=== PATIENT | female | born 1940 | race Caucasian/White ===

== ENCOUNTER 2018-12-31 11:28 | Emergency (ER) | payer MEDICARE, BC ==
[2018-12-31 11:47] VITALS: RESP 18
[2018-12-31] MEDS ORDERED: SODIUM CHLORIDE 0.9% 1,000 ML IV STA ×2 (12:15)
[2018-12-31] MEDS ORDERED: PANTOPRAZOLE 40 MG/10 ML VIAL IVP STA (12:15)
[2018-12-31] MEDS ORDERED: ONDANSETRON 4 MG/2 ML VIAL IVP STA (12:17)
[2018-12-31] MEDS ORDERED: SODIUM CHLORIDE 0.9% 1,000 ML IV SCH (12:30)
--- NOTE | 2018-12-31 13:08 | ED ---
Abdominal Pain HPI - General Chief Complaint: Abdominal Pain Stated Complaint: nausea, cramps, diarrhea Time Seen by Provider: 12/31/18 11:48 Source: patient, RN notes reviewed, old records reviewed Mode of arrival: ambulatory Limitations: no limitations - History of Present Illness Initial Comments: 70-year-old male presents emergency department today for evaluation today with complaints of diarrhea for the past 3 days. She states she's had a poor a ppetite. She has some left lower quadrant minimal discomfort. Patient states she's had some dark stools yesterday and today was concern for this. Patient states that she has been feeling just generally tired and fatigued. She denies any other complaints. - Related Data Home Medications Medication Instructions Recorded Confirmed Bimatoprost [Lumigan .01% Ophth 1 drop RIGHT EYE HS 03/01/16 12/31/18 Soln] Lisinopril [Zestril] 20 mg PO BID 03/01/16 12/31/18 Denosumab [Prolia] 60 mg SQ Q180D 12/31/18 12/31/18 Omeprazole [PriLOSEC] 20 mg PO DAILY 12/31/18 12/31/18 Propafenone [Rythmol] 150 mg PO Q8H 12/31/18 12/31/18 Rivaroxaban [Xarelto] 20 mg PO DAILY 12/31/18 12/31/18 Previous Rx's Medication Instructions Recorded Loperamide [Imodium] 2 mg PO TID #10 cap 12/31/18 Nitrofurantoin Monohyd/M-Cryst 100 mg PO Q12HR #14 cap 12/31/18 [Macrobid] Ondansetron Odt [Zofran Odt] 4 mg PO Q8HR PRN #14 tab 12/31/18 Allergies Allergy/AdvReac Type Severity Reaction Status Date / Time etodolac [From [facility]] Allergy Rash/Hives Verified 12/31/18 12:26 Review of Systems ROS Statement: Those systems with pertinent positive or pertinent negative responses have been documented in the HPI. ROS Other: All systems not noted in ROS Statement are negative. Past Medical History Past Medical History: Atrial Fibrillation, GERD/Reflux, Hypertension, Rheumatoid Arthritis (RA) Additional Past Medical History / Comment(s): AT [facility] ON 01/18/16 History of Any Multi-Drug Resistant Organisms: None Reported Past Surgical History: Cholecystectomy Past Anesthesia/Blood Transfusion Reactions: No Reported Reaction Past Psychological History: No Psychological Hx Reported Smoking Status: Never smoker Past Alcohol Use History: Occasional Past Drug Use History: None Reported - Past Family History Mother Additional Family Medical History / Comment(s): BLOOD CLOT IN THE BRAIN, AT AGE 61. General Exam - General Exam Comments Initial Comments: This is a 78-year-old female. Alert and oriented. No distress. Limitations: no limitations General appearance: alert, in no apparent distress Head exam: Present: atraumatic, normocephalic, normal inspection Eye exam: Present: normal appearance, PERRL, EOMI. Absent: scleral icterus, conjunctival injection, periorbital swelling ENT exam: Present: normal exam, mucous membranes moist Neck exam: Present: normal inspection. Absent: tenderness, meningismus, lymphadenopathy Respiratory exam: Present: normal lung sounds bilaterally. Absent: respiratory distress, wheezes, rales, rhonchi, stridor Cardiovascular Exam: Present: regular rate, normal rhythm, normal heart sounds. Absent: systolic murmur, diastolic murmur, rubs, gallop, clicks GI/Abdominal exam: Present: soft, normal bowel sounds. Absent: distended, tenderness, guarding, rebound, rigid Extremities exam: Present: normal inspection, full ROM, normal capillary refill. Absent: tenderness, pedal edema, joint swelling, calf tenderness Neurological exam: Present: alert, oriented X3, CN II-XII intact Psychiatric exam: Present: normal affect, normal mood Skin exam: Present: warm, dry, intact, normal color. Absent: rash Course Vital Signs 12/31/18 12/31/18 11:44 14:27 Temperature 97.2 F L Pulse Rate 102 H 118 H Respiratory 18 18 Rate Blood Pressure 122/78 132/78 O2 Sat by Pulse 96 95 Oximetry Medical Decision Making - Medical Decision Making Patient is a 70-year-old female presents with nausea vomiting, episodes of diarrhea for the past 3 days. She states she's been started some dark stools yesterday. She has minimal left-sided belly pain with cramping associated with this. She has no tenderness on exam. Patient's occult was negative. Motor was reviewed and unremarkable. Hemoglobin is stable 14. Patient's urinalysis does show infection. Urine culture be completed. Discusses likely from frequent bouts of diarrhea. Patient will have stool culture studies completed out patiently. Discussed appropriate follow-up with her PCP. After receiving IV fluids is feeling much better. Wants to be discharged home. - Lab Data Result diagrams: 12/31/18 12:49 12/31/18 12:49 Lab Results 12/31/18 12/31/18 12/31/18 Range/Units 12:49 12:49 12:49 WBC (3.8-10.6) k/uL RBC (3.80-5.40) m/uL Hgb (11.4-16.0) gm/dL Hct (34.0-46.0) % MCV (80.0-100.0) fL MCH (25.0-35.0) pg MCHC (31.0-37.0) g/dL RDW (11.5-15.5) % Plt Count (150-450) k/uL Neutrophils % % Lymphocytes % % Monocytes % % Eosinophils % % Basophils % % Neutrophils # (1.3-7.7) k/uL Lymphocytes # (1.0-4.8) k/uL Monocytes # (0-1.0) k/uL Eosinophils # (0-0.7) k/uL Basophils # (0-0.2) k/uL PT 11.3 (9.0-12.0) sec INR 1.1 (<1.2) APTT 18.3 L (22.0-30.0) sec Sodium (137-145) mmol/L Potassium (3.5-5.1) mmol/L Chloride (98-107) mmol/L Carbon Dioxide (22-30) mmol/L Anion Gap mmol/L BUN (7-17) mg/dL Creatinine (0.52-1.04) mg/dL Est GFR (CKD-EPI)AfAm (>60 ml/min/1.73 sqM) Est GFR (CKD-EPI)NonAf (>60 ml/min/1.73 sqM) Glucose (74-99) mg/dL Calcium (8.4-10.2) mg/dL Total Bilirubin (0.2-1.3) mg/dL AST (14-36) U/L ALT (9-52) U/L Alkaline Phosphatase (38-126) U/L Troponin I <0.012 (0.000-0.034) ng/mL Total Protein (6.3-8.2) g/dL Albumin (3.5-5.0) g/dL Amylase 52 (30-110) U/L Lipase 101 (23-300) U/L Urine Color Urine Appearance (Clear) Urine pH (5.0-8.0) Ur Specific [place] (1.001-1.035) Urine Protein (Negative) Urine Glucose (UA) (Negative) Urine Ketones (Negative) Urine Blood (Negative) Urine Nitrite (Negative) Urine Bilirubin (Negative) Urine Urobilinogen (<2.0) mg/dL Ur Leukocyte Esterase (Negative) Urine WBC (0-5) /hpf Ur Squamous Epith Cells (0-4) /hpf Amorphous Sediment (None) /hpf Urine Bacteria (None) /hpf Hyaline Casts (0-2) /lpf Urine Mucus (None) /hpf Stool Occult Blood (Negative) Blood Type Blood Type Recheck Antibody Screen Spec Expiration Date 12/31/18 12/31/18 12/31/18 Range/Units 12:49 12:49 12:49 WBC 4.8 (3.8-10.6) k/uL RBC 4.61 (3.80-5.40) m/uL Hgb 14.3 (11.4-16.0) gm/dL Hct 42.2 (34.0-46.0) % MCV 91.6 (80.0-100.0) fL MCH 31.0 (25.0-35.0) pg MCHC 33.9 (31.0-37.0) g/dL RDW 14.8 (11.5-15.5) % Plt Count 115 L (150-450) k/uL Neutrophils % 57 % Lymphocytes % 30 % Monocytes % 9 % Eosinophils % 1 % Basophils % 0 % Neutrophils # 2.7 (1.3-7.7) k/uL Lymphocytes # 1.4 (1.0-4.8) k/uL Monocytes # 0.4 (0-1.0) k/uL Eosinophils # 0.1 (0-0.7) k/uL Basophils # 0.0 (0-0.2) k/uL PT (9.0-12.0) sec INR (<1.2) APTT (22.0-30.0) sec Sodium (137-145) mmol/L Potassium (3.5-5.1) mmol/L Chloride (98-107) mmol/L Carbon Dioxide (22-30) mmol/L Anion Gap mmol/L BUN (7-17) mg/dL Creatinine (0.52-1.04) mg/dL Est GFR (CKD-EPI)AfAm (>60 ml/min/1.73 sqM) Est GFR (CKD-EPI)NonAf (>60 ml/min/1.73 sqM) Glucose (74-99) mg/dL Calcium (8.4-10.2) mg/dL Total Bilirubin (0.2-1.3) mg/dL AST (14-36) U/L ALT (9-52) U/L Alkaline Phosphatase (38-126) U/L Troponin I (0.000-0.034) ng/mL Total Protein (6.3-8.2) g/dL Albumin (3.5-5.0) g/dL Amylase (30-110) U/L Lipase (23-300) U/L Urine Color Yellow Urine Appearance Cloudy H (Clear) Urine pH 6.0 (5.0-8.0) Ur Specific [place] 1.014 (1.001-1.035) Urine Protein 1+ H (Negative) Urine Glucose (UA) Negative (Negative) Urine Ketones Negative (Negative) Urine Blood Negative (Negative) Urine Nitrite Negative (Negative) Urine Bilirubin Negative (Negative) Urine Urobilinogen <2.0 (<2.0) mg/dL Ur Leukocyte Esterase Large H (Negative) Urine WBC 30 H (0-5) /hpf Ur Squamous Epith Cells 5 H (0-4) /hpf Amorphous Sediment Rare H (None) /hpf Urine Bacteria Rare H (None) /hpf Hyaline Casts 6 H (0-2) /lpf Urine Mucus Occasional H (None) /hpf Stool Occult Blood (Negative) Blood Type O Positive Blood Type Recheck CABO Indicated Antibody Screen NEGATIVE Spec Expiration Date 01/03/2019 - 234812/31/18 12/31/18 Range/Units 12:49 13:00 WBC (3.8-10.6) k/uL RBC (3.80-5.40) m/uL Hgb (11.4-16.0) gm/dL Hct (34.0-46.0) % MCV (80.0-100.0) fL MCH (25.0-35.0) pg MCHC (31.0-37.0) g/dL RDW (11.5-15.5) % Plt Count (150-450) k/uL Neutrophils % % Lymphocytes % % Monocytes % % Eosinophils % % Basophils % % Neutrophils # (1.3-7.7) k/uL Lymphocytes # (1.0-4.8) k/uL Monocytes # (0-1.0) k/uL Eosinophils # (0-0.7) k/uL Basophils # (0-0.2) k/uL PT (9.0-12.0) sec INR (<1.2) APTT (22.0-30.0) sec Sodium 133 L (137-145) mmol/L Potassium 3.6 (3.5-5.1) mmol/L Chloride 101 (98-107) mmol/L Carbon Dioxide 18 L (22-30) mmol/L Anion Gap 14 mmol/L BUN 12 (7-17) mg/dL Creatinine 0.62 (0.52-1.04) mg/dL Est GFR (CKD-EPI)AfAm >90 (>60 ml/min/1.73 sqM) Est GFR (CKD-EPI)NonAf 87 (>60 ml/min/1.73 sqM) Glucose 114 H (74-99) mg/dL Calcium 8.9 (8.4-10.2) mg/dL Total Bilirubin 0.5 (0.2-1.3) mg/dL AST 32 (14-36) U/L ALT 21 (9-52) U/L Alkaline Phosphatase 52 (38-126) U/L Troponin I (0.000-0.034) ng/mL Total Protein 7.1 (6.3-8.2) g/dL Albumin 4.4 (3.5-5.0) g/dL Amylase (30-110) U/L Lipase (23-300) U/L Urine Color Urine Appearance (Clear) Urine pH (5.0-8.0) Ur Specific [place] (1.001-1.035) Urine Protein (Negative) Urine Glucose (UA) (Negative) Urine Ketones (Negative) Urine Blood (Negative) Urine Nitrite (Negative) Urine Bilirubin (Negative) Urine Urobilinogen (<2.0) mg/dL Ur Leukocyte Esterase (Negative) Urine WBC (0-5) /hpf Ur Squamous Epith Cells (0-4) /hpf Amorphous Sediment (None) /hpf Urine Bacteria (None) /hpf Hyaline Casts (0-2) /lpf Urine Mucus (None) /hpf Stool Occult Blood Negative (Negative) Blood Type Blood Type Recheck Antibody Screen Spec Expiration Date Disposition Clinical Impression: Diarrhea, UTI (urinary tract infection) Disposition: HOME SELF-CARE Condition: Good Instructions (If sedation given, give patient instructions): Gastroenteritis (ED), Urinary Tract Infection in Women (ED) Additional Instructions: Patient advised to return stool sample for checking for further source of infection. Take antibiotic. Patient recommended follow-up with primary care doctor. Rest, remain hydrated. Return to emergency department if any alarming signs or symptoms occur. Prescriptions: Loperamide [Imodium] 2 mg PO TID #10 cap Nitrofurantoin Monohyd/M-Cryst [Macrobid] 100 mg PO Q12HR #14 cap Ondansetron Odt [Zofran Odt] 4 mg PO Q8HR PRN #14 tab PRN Reason: Nausea Is patient prescribed a controlled substance at d/c from ED?: No Referrals: Prince Miles MD [Primary Care Provider] - 1-2 days Time of Disposition: 14:36
[2018-12-31 13:21] LABS: Amorphous Sediment,Urine Rare /hpf; Appearance,Urine Cloudy (Clear); Bacteria,Urine Rare /hpf; Bilirubin,Urine Negative (Negative); Blood,Urine Negative (Negative); Color,Urine Yellow; Glucose,Urine (UA) Negative (Negative); Hyaline Casts,Urine 6 /lpf (0-2); Ketones,Urine Negative (Negative); Leukocyte Esterase,Urine Large (Negative); Mucus,Urine Occasional /hpf; Nitrite,Urine Negative (Negative); Protein,Urine 1+ (Negative); Specific Gravity,Urine 1.014 (1.001-1.035); Squamous Epithelial Cell,Urine 5 /hpf (0-4); Urobilinogen,Urine <2.0 mg/dL (<2.0); WBC,Urine 30 /hpf (0-5)
[2018-12-31 13:25] LABS: Amylase 52 U/L (30-110); Lipase 101 U/L (23-300)
[2018-12-31 13:31] LABS: INR 1.1 (<1.2); Prothrombin Time 11.3 sec (9.0-12.0)
[2018-12-31 13:35] LABS: Partial Thromboplastin Time 18.3 sec (22.0-30.0)
[2018-12-31 13:42] LABS: Basophils % (A) 0 %; Eosinophils # (A) 0.1 k/uL (0-0.7); Eosinophils % (A) 1 %; HCT 42.2 % (34.0-46.0); HGB 14.3 gm/dL (11.4-16.0); Lymphocytes # (A) 1.4 k/uL (1.0-4.8); Lymphocytes % (A) 30 %; MCHC 33.9 g/dL (31.0-37.0); MCV 91.6 fL (80.0-100.0); Mean Platelet Volume 7.3; Monocytes # (A) 0.4 k/uL (0-1.0); Monocytes % (A) 9 %; Neutrophils # (A) 2.7 k/uL (1.3-7.7); Neutrophils % (A) 57 %; Platelet Count 115 k/uL (150-450); RBC 4.61 m/uL (3.80-5.40); RDW 14.8 % (11.5-15.5); WBC 4.8 k/uL (3.8-10.6)
[2018-12-31 13:51] LABS: ALT 21 U/L (9-52); AST 32 U/L (14-36); African American GFR (CKD) >90 (>60 ml/min/1.73 sqM); Albumin 4.4 g/dL (3.5-5.0); Alkaline Phosphatase 52 U/L (38-126); Anion Gap 14 mmol/L; Blood Urea Nitrogen 12 mg/dL (7-17); Calcium 8.9 mg/dL (8.4-10.2); Carbon Dioxide 18 mmol/L (22-30); Chloride 101 mmol/L (98-107); Glucose 114 mg/dL (74-99); Potassium 3.6 mmol/L (3.5-5.1); Sodium 133 mmol/L (137-145); Total Bilirubin 0.5 mg/dL (0.2-1.3); Total Protein 7.1 g/dL (6.3-8.2)
[2018-12-31 15:51] VITALS: BP 126/71; PULSE 94; TEMP 98.1
== END 2018-12-31 15:50 | disposition home or self-care (01) ==
LOC: EC 11:28
DX: R19.7 Diarrhea, unspecified (principal); N39.0 Urinary tract infection, site not specified; R11.2 Nausea with vomiting, unspecified; I48.91 Unspecified atrial fibrillation; K21.9 Gastro-esophageal reflux disease without esophagitis; I10 Essential (primary) hypertension; Z90.49 Acquired absence of other specified parts of digestive tract; Z79.01 Long term (current) use of anticoagulants; Z79.899 Other long term (current) drug therapy; Z88.6 Allergy status to analgesic agent; Z53.8 Procedure and treatment not carried out for other reasons
CPT/HCPCS: 36415; 86900; 86901; 80053; 82150; 83690; 84484; 85025; 85610; 85730; 86850; 82272; 81001; 87040; 99284; 96374; 96375; 96361 ×3; J2405; C9113

== ENCOUNTER → 2019-01-06 | Outpatient (CLI) | payer MEDICARE, BC ==
[~2019-01-06] MED LIST: DENOSUMAB 60 MG/ML 1 ML SYRINGE SQ NR
[2019-01-06 14:30] VITALS: BP 138/84; PULSE 94; RESP 16; TEMP 97.9
== END | disposition home or self-care (01) ==
LOC: PROCWHC3 14:15
PROVIDERS: ATTEND Family Medicine
DX: M81.0 Age-related osteoporosis without current pathological fracture (principal)
CPT/HCPCS: 96372; J0897

== ENCOUNTER → 2019-02-20 | Outpatient (CLI) | payer MEDICARE, BC ==
[2019-02-20 10:07] LABS: HCT 43.3 % (34.0-46.0); HGB 13.6 gm/dL (11.4-16.0); MCH 29.6 pg (25.0-35.0); MCHC 31.4 g/dL (31.0-37.0); MCV 94.3 fL (80.0-100.0); Mean Platelet Volume 7.2; Platelet Count 214 k/uL (150-450); RBC 4.59 m/uL (3.80-5.40); RDW 13.2 % (11.5-15.5); WBC 7.1 k/uL (3.8-10.6)
[2019-02-20 10:25] LABS: African American GFR (CKD) >90 (>60 ml/min/1.73 sqM); Blood Urea Nitrogen 12 mg/dL (7-17); Glucose 105 mg/dL (74-99); Potassium 4.7 mmol/L (3.5-5.1)
== END | disposition home or self-care (01) ==
LOC: LABPAT 09:41
PROVIDERS: ATTEND Internal Medicine Clinical Cardiac Electrophysiology
DX: Z01.812 Encounter for preprocedural laboratory examination (principal); I48.1 Persistent atrial fibrillation; R07.9 Chest pain, unspecified
CPT/HCPCS: 82565; 82947; 84132; 84520; 85027

== ENCOUNTER 2019-03-03 10:00 | Day surgery (SDC) | payer MEDICARE, BC ==
[~2019-03-03 10:00] MED LIST changes: -DENOSUMAB 60 MG/ML 1 ML SYRINGE SQ NR; +HYDROmorphone 0.5 MG/0.5 ML SYRINGE IVP PRN; +MIDAZOLAM 2 MG/2 ML VIAL IV PRN; +ONDANSETRON 4 MG/2 ML VIAL IVP ONE
[2019-03-03] MEDS ORDERED: SODIUM CHLORIDE 0.9% 1,000 ML IV ONE (11:42)
[2019-03-03] MEDS ORDERED: HEPARIN SODIUM,PORCINE 5,000 UNIT/ML 1 ML VIAL ONE (14:52)
[2019-03-03] MEDS ORDERED: PHENYLEPHRINE-0.9% NACL SYG 1 MG/10 ML SYRINGE ONE (14:52)
[2019-03-03] MEDS ORDERED: PROTAMINE SULFATE 10 MG/ML 5 ML VIAL IV ONE ×2 (14:52→18:07)
[2019-03-03] MEDS ORDERED: MIDAZOLAM 2 MG/2 ML VIAL ONE (14:52)
[2019-03-03] MEDS ORDERED: PROPOFOL 10 MG/ML 20 ML VIAL IV ONE (14:52)
[2019-03-03] MEDS ORDERED: fentaNYL (PF) 50 MCG/ML 2 ML AMP ONE (14:52)
[2019-03-03] MEDS ORDERED: HEPARIN SODIUM,PORCINE 10,000 UNIT/ML 1 ML VIAL ONE (14:52)
[2019-03-03] MEDS ORDERED: ONDANSETRON 4 MG/2 ML VIAL ONE (14:52)
[2019-03-03] MEDS ORDERED: SUCCINYLCHOLINE CHLORIDE 100 MG/5 ML SYR IV ONE (14:52)
[2019-03-03] MEDS ORDERED: IOPAMIDOL-250 50ML BTL IV ONE ×2 (15:09→18:09)
--- NOTE | 2019-03-03 15:12 | P.HPCAR ---
History of Present Illness This is Loren Maldonado PA-C dictating a H&P on this patient The patient was interviewed and examined by me as well as by Dr. Cordon Case discussed with Dr. 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 She has had symptomatic persistent atrial fibrillation that has been refractory to rhythm control with flecainide, Rythmol, and amiodarone. She has had symptoms of fatigue and shortness of breath despite rate control. Patient seen and examined resting comfortably in bed. Today she feels well. Denies chest pain, shortness of breath, orthopnea, PND, lower extremity edema, fevers chills, cough, recent infections. ROS: No fevers, chills or rigors, no cough, phlegm or expectoration, no nausea, vomiting or diarrhea, no hematuria, dysuria, no musculoskeletal complaints, no strokes or seizures, no skin lesions. EXAMINATION: Temperature 98.2F, pulse 78, respirations 16, blood pressure 167/99, oxygen saturation 95% on room air Patient is seen and examined resting comfortably in bed, in no acute distress Lungs clear to auscultation bilaterally, no wheezing, rhonchi or crackles a ppreciated Heart is irregularly irregular, no murmurs appreciated No elevated JVD No lower extremity edema REVIEW OF LABS, ECG & MEDICAL DATA Most recent labs reviewed, WBC 7.1, hemoglobin 13.6, platelets 214, potassium 4.7, BUN 12, creatinine 0.62, Physical Exam Vitals: Vital Signs Temp Pulse Resp BP Pulse Ox 03/03/19 11:42 98.2 F 78 16 167/99 95 Intake and Output 03/03/19 03/03/19 03/03/19 06:59 14:59 22:59 Intake Total 50 Balance 50 Intake: IV 50 Past Medical History Past Medical History: Atrial Fibrillation, Cancer, GERD/Reflux, Hypertension, Rheumatoid Arthritis (RA) Additional Past Medical History / Comment(s): back pain - hx of broken & fx vertebrae, Osteoporosis., Hx of skin cancer., [place] [employer] Pacemaker., See Cardiology H & P. History of Any Multi-Drug Resistant Organisms: None Reported Past Surgical History: Back Surgery, Cholecystectomy, Pacemaker Additional Past Surgical History / Comment(s): [employer]ER, KYPHOPLASTY. Past Anesthesia/Blood Transfusion Reactions: No Reported Reaction Type of Cardiac Device: Permanent Pacemaker Device Placement Date:: 02/2016 Past Psychological History: No Psychological Hx Reported Smoking Status: Never smoker Past Alcohol Use History: Occasional Past Drug Use History: None Reported - Past Family History Mother Additional Family Medical History / Comment(s): BLOOD CLOT IN THE BRAIN, AT AGE 61. Daughter(s) Family Medical History: Cancer Additional Family Medical History / Comment(s): MELANOMA & SQUAMOUS CELL CANCER Physical Examination Vital Signs Temp Pulse Resp BP Pulse Ox 03/03/19 11:42 98.2 F 78 16 167/99 95 Intake and Output 03/03/19 03/03/19 03/03/19 06:59 14:59 22:59 Intake Total 50 Balance 50 Intake: IV 50 Results Current Medications Generic Name Dose Route Start Last Admin Trade Name Freq PRN Reason Stop Dose Admin Hydromorphone HCl 0.5 mg 03/03/19 06:36 Dilaudid IVP 03/04/19 06:37 Q5M PRN Pain Control Sodium Chloride 1,000 mls @ 20 mls/hr 03/03/19 06:36 Saline 0.9% IV .Q24H ALEX Lactated Ringer's 1,000 mls @ 20 mls/hr 03/03/19 06:36 Lactated Ringers IV .Q24H ALEX Midazolam HCl 2 mg 03/03/19 06:36 Versed IV 03/04/19 06:37 ONCE PRN Anxiety Intake and Output 03/03/19 03/03/19 03/03/19 06:59 14:59 22:59 Intake Total 50 Balance 50 Intake: IV 50
--- NOTE | 2019-03-03 15:18 | P.PCN ---
Preoperative Diagnosis: Preoperative diagnosis: Tachybradycardia syndrome status post permanent pacemaker placement, persistent atrial fibrillation, possible upgrade to biventricular system in the future 15 mL of IV contrast dye was injected in the left upper extremity vein, cine fluoroscopy was performed, revealed patent axillary, subclavian and innominate veins and 2 pacing lead noted
[2019-03-03] MEDS ORDERED: LIDOCAINE 1% INJ 10MG/ML (20 ML MDV) SQ ONE (15:47)
[2019-03-03] MEDS ORDERED: ACETAMINOPHEN IV (For NPO) 1,000 MG in EMPTY BAG 1 BAG IVPB ONE (17:51)
[2019-03-03] MEDS ORDERED: HYDROcodone/APAP 5-325MG 1 EACH TAB PO PRN (17:51)
[2019-03-03] MEDS ORDERED: HEPARIN SOD,PORK IN 0.45% NACL 25,000 UNIT in 0.45% NACL 1 250ML.BAG IV ONE (18:06)
[2019-03-03] MEDS: LACTATED RINGERS 1,000 ML IV SCH (18:09)
[2019-03-03] MEDS: SODIUM CHLORIDE 0.9% 1,000 ML IV SCH (18:09)
--- NOTE | 2019-03-03 18:13 | P.PCN ---
Preoperative Diagnosis: Diagnosis Atrial fibrillation, symptomatic, refractory to therapy, persistent failed class I as well as class III antiarrhythmic drug therapy, symptomatic Result Successful pulmonary vein isolation of all veins using cryo-ablation Complete entrance block in all 4 veins confirmed No evidence for phrenic nerve injury Esophageal deflection YES Electrical cardioversion with a synchronized shock across the chest YES Procedure details Patient was brought to the EP lab in a fasting state. Written informed consent was obtained prior to the procedure. Procedure performed under general anesthesia After initial muscle relaxant use, muscle relaxants were not given thereafter in order to assess phrenic nerve during procedure. Patient prepped and draped as per protocol Full cryo-set up with standard preparation of the cryoablation tools done. Femoral Venous access obtained on the right and left groins Venous and arterial Sheaths placed. Diagnostic catheters for the high right atrium, phrenic nerve stimulation and pacing, His bundle, RV and coronary sinus placed Intracardiac echo catheter placed. Long sheath placed in the right atrium Left and right transseptal catheterization performed under intracardiac echo guidance. Intravenous heparin with aCT above 300 Later, catheter positioning and balloon positioning in the left atrium, under intracardiac echo guidance Diagnostic EP study with Coronary sinus pacing and recording Baseline measurements Sinus cycle length 724 ms, OK interval 135 ms, QRS 112 ms, QT 373 ms AH interval 100 ms, HV interval 52 ms Atrial pacing performed from the high right atrium and the coronary sinus RV pacing Transseptal catheterization performed RA pressure 12/4/8 LA pressure 24/3/13 Transseptal catheterization performed with standard sheath. The cryoablation sheath was then placed with an over the wire exchange without any acute complications. All 4 pulmonary veins were isolated in the following sequence: Left superior followed by left inferior followed by right superior followed by right inferior The cryo-ablation balloon was placed at the os of each vein 1.5 mL of IV dye was injected to confirm an occluded vein Goal during cryoablation was to achieve complete occlusion of the pulmonary vein, achieve -30 degrees C at 30 seconds and achieve -40 degrees C at 60 secon ds and a time to effect of less than 60-90 seconds, . If not the balloon was repositioned to obtain this result After completion of Cryoblation with durations from 180-240 seconds, entrance block was confirmed with the Attain circular catheter in a roving fashion around the antrum of the pulmonary veins Phrenic nerve pacing was performed from the SVC, right innominate vein area and diaphragm voltage was monitored. Diaphragmatic contractions were also monitored manually for strength of contraction. Parameter goals for each cryo freeze Complete occlusion of the appropriate vein -30 degrees C by 30 seconds -40 degrees C by 60 seconds Minimum between minus 40-55 degrees C Thaw time greater than 10 seconds Balloon visualized by intracardiac echo The esophagus was intubated. Esophageal Temperature monitoring with a CIRCA catheter formed. Esophageal deflection for hypothermia of the esophagus below 30 degrees C Left superior pulmonary vein Complete isolation, entrance block, 8 minutes Left inferior pulmonary vein Complete isolation, entrance block Right superior pulmonary vein, during phrenic nerve pacing Complete isolation, entrance block Right inferior pulmonary vein, during phrenic nerve pacing Complete isolation, entrance block At the end of the procedure the Achieve catheter was once again used to check for entrance block Phrenic nerve stimulation was performed to confirm diaphragmatic stimulation the end of the procedure Cine fluoroscopy was performed at the very end of the procedure to confirm movement of both diaphragms with inspiration and expiration At the end of the procedure the patient was extubated Heparin was reversed Venous sheaths were removed and hemostasis assured Procedures performed (PVI - CRYO Ablation) Diagnostic EP study CS pacing and recording Left and right transseptal catheterization Catheter the mapping of the tachycardia (NOT 3D mapping) Intracardiac echocardiography Pulmonary vein isolation with transseptal and comprehensive EPS, 60316 Electrical cardioversion with a synchronized shock across the chest [id number]
--- NOTE | 2019-03-03 18:14 | P.PCN ---
Preoperative Diagnosis: [employer] dual-chamber pacemaker was interrogated and programmed to VVI 50 beats a minute prior to the procedure Following the procedure the pacemaker was programmed to DDDR mode 50 to 1:30 bpm Lead impedances interrogated and stable Cinefluoroscopy of the leads performed prior to the procedure and at the end of the procedure and leads remained in stable position
[2019-03-03] MEDS ORDERED: ONDANSETRON 4 MG/2 ML VIAL IVP ONE (18:56)
[2019-03-03 20:19] VITALS: BMI 32.3
[2019-03-03] MEDS: LOSARTAN 50 MG TAB PO SCH (20:49)
[2019-03-03] MEDS: FLECAINIDE 50 MG TAB PO SCH (20:49)
[2019-03-03] MEDS ORDERED: RIVAROXABAN 20 MG TAB PO SCH (21:00)
[2019-03-03] MEDS ORDERED: LATANOPROST 0.005% OPHTH DROPS 2.5 ML BTL RIGHT EYE SCH (21:00)
[2019-03-04] MEDS: ACETAMINOPHEN TAB 325 MG TAB PO PRN ×2 (00:05→11:15)
[2019-03-04] MEDS: LACTATED RINGERS 1,000 ML IV SCH (06:04)
[2019-03-04] MEDS: SODIUM CHLORIDE 0.9% 1,000 ML IV SCH (06:04)
[2019-03-04] MEDS ORDERED: PANTOPRAZOLE 40 MG TABLET PO SCH (07:30)
[2019-03-04] MEDS ORDERED: NADOLOL 20 MG TAB PO SCH (09:00)
[2019-03-04] MEDS: FLECAINIDE 50 MG TAB PO SCH (09:07)
[2019-03-04] MEDS: LOSARTAN 50 MG TAB PO SCH (09:08)
--- NOTE | 2019-03-04 10:03 | P.DS ---
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 Had symptomatic persistent atrial fibrillation refractory rhythm control medications and remains symptomatic with shortness of breath and fatigue despite rate contr ol if she was scheduled for an atrial fibrillation ablation. She is yesterday she underwent successful atrial fibrillation ablation and underwent external electrical cardioversion to normal sinus rhythm. Today she remains in sinus rhythm. Yesterday we decreased her Nadolol, stopped her propafenone, and started on flecainide 50 mg twice a day. Her blood pressure has been well controlled. Patient seen and examined resting comfortably in bed. No acute events overnight. She did have some oozing from the left groin when she stood up to use the bathroom overnight resolved with manual pressure. No Further bleeding. Denies any chest pain or shortness of breath. Pain has been well controlled. He has been able to get up and use the bathroom without any dizziness or lightheadedness. Her device interrogation revealed normal functioning pacemaker Her 12-lead EKG showed sinus mechanism with mildly prolonged PA Temperature 98.5F, pulse 69, respirations 16, blood pressure 121/73, oxygen saturation 93% on room air Patient seen and examined resting comfortably in bed Lungs clear to auscultation bilaterally Heart is regular, normal S1-S2, no murmurs appreciated Bilateral groins healing well, no hematoma is palpated No lower extremity edema No elevated JVD Impression Persistent symptomatic atrial fibrillation status post atrial fibrillation ablation, currently in sinus rhythm on flecainide 50 mg twice a day Tachycardia bradycardia syndrome status post dual pacemaker placement Plan Increase flecainide to 100 mg twice daily Continue with Nadolol 20 mg daily Follow-up with Dr. Kelly Mark within a week Outpatient Lexiscan stress test Continue all other cardiac medications including anticoagulation with Xarelto Patient is clear for discharge as longus she is stable and able to get up and walk around in her groins are healing well Plan - Discharge Summary Discharge Rx Participant: Yes New Discharge Prescriptions: New Nadolol [Corgard] 20 mg PO DAILY 3 Days #90 tablet Flecainide [Tambocor] 50 mg PO Q12HR #180 tablet Discontinued Propafenone [Rythmol] 150 mg PO Q8H Nadolol [Corgard] 20 mg PO BID No Action Bimatoprost [Lumigan .01% Ophth Soln] 1 drop RIGHT EYE HS Rivaroxaban [Xarelto] 20 mg PO HS Omeprazole [PriLOSEC] 20 mg PO DAILY Denosumab [Prolia] 1 dose SQ Q180D Losartan Potassium [Cozaar] 50 mg PO BID Calcium With Vitamin D 1 tab PO BID Discharge Medication List Bimatoprost [Lumigan .01% Ophth Soln] 1 drop RIGHT EYE HS 03/01/16 [History] Denosumab [Prolia] 1 dose SQ Q180D 12/31/18 [History] Omeprazole [PriLOSEC] 20 mg PO DAILY 12/31/18 [History] Rivaroxaban [Xarelto] 20 mg PO HS 12/31/18 [History] Calcium With Vitamin D 1 tab PO BID 02/27/19 [History] Losartan Potassium [Cozaar] 50 mg PO BID 02/27/19 [History] Flecainide [Tambocor] 50 mg PO Q12HR #180 tablet 03/03/19 [Rx] Nadolol [Corgard] 20 mg PO DAILY 3 Days #90 tablet 03/03/19 [Rx] Follow up Appointment(s)/Referral(s): Eulalio Cordon MD [STAFF PHYSICIAN] - 1 Week (follow up with Dr. Cordon/Jaswant Maldonado/Lachelle Julio in one week) Activity/Diet/Wound Care/Special Instructions: Post EP study - Ablation instructions 1. Keep access sites dry for 2 days. 2. No heavy lifting or straining for 2 days. 3. Avoid bending the hips repeatedly for 2 days. 4. You may go up and down stairs slowly Call if the following is noted 1. Bleeding, increasing swelling or pain at the access sites. 2. Increasing chest discomfort, especially upon taking a deep breath. 3. Increasing shortness of breath, at rest or with exertion. 4. Undue cough / phlegm 5. Difficulty or pain while swallowing. 6. Pain or change in color in the extremities. 7. Fever, chills, rigors. 8. Increasing headache or neurologic symptoms. 9. Dizziness, fainting, palpitations Decreased Nadolol 20 mg once daily, stop Rythmol and start flecainide 50 mg twice daily
[2019-03-04 16:30] VITALS: BP 108/60; PULSE 58; RESP 18; TEMP 98.1
== END 2019-03-04 17:23 | disposition home or self-care (01) ==
LOC: CATHEP 10:00 → 1SOBS 18:05 → CATHEP 03-04 17:23
PROVIDERS: ATTEND Internal Medicine Clinical Cardiac Electrophysiology
DX: I48.1 Persistent atrial fibrillation (principal); I10 Essential (primary) hypertension; K21.9 Gastro-esophageal reflux disease without esophagitis; M06.9 Rheumatoid arthritis, unspecified; M81.0 Age-related osteoporosis without current pathological fracture; Z85.828 Personal history of other malignant neoplasm of skin; Z95.0 Presence of cardiac pacemaker
CPT/HCPCS: 85347; 93662; 36005; 93609; 93656; C1769 ×4; C1894 ×2; C1730 ×2; C1759; C1893; C1733; C1766; J2250; J2720; J1644 ×3; J0690; J2405; J2001; J3010; J0131; J2370; J0330; J2704; Q9966

== ENCOUNTER → 2019-07-09 | Outpatient (CLI) | payer MEDICARE, BC ==
[~2019-07-09] MED LIST changes: +DENOSUMAB 60 MG/ML 1 ML SYRINGE SQ ONE; -HYDROmorphone 0.5 MG/0.5 ML SYRINGE IVP PRN; -MIDAZOLAM 2 MG/2 ML VIAL IV PRN; -ONDANSETRON 4 MG/2 ML VIAL IVP ONE
[2019-07-09 14:30] VITALS: BP 146/77; PULSE 63; RESP 18; TEMP 98
== END | disposition home or self-care (01) ==
LOC: PROCWHC3 14:16
PROVIDERS: ATTEND Family Medicine
DX: M81.0 Age-related osteoporosis without current pathological fracture (principal)
CPT/HCPCS: 96372; J0897

== ENCOUNTER 2020-01-29 10:51 | Emergency (ER) | payer BC, MEDICARE ==
--- NOTE | 2020-01-29 11:31 | ED ---
Female Urogenital HPI - General Chief complaint: Urogenital Stated complaint: UTI Time Seen by Provider: 01/29/20 10:56 Source: patient Mode of arrival: wheelchair Limitations: no limitations - History of Present Illness Initial comments: 79-year-old female presents complaining of dysuria 5 months--patient states that she has had burning with urination for 5 months. She states she has been on multiple antibiotics she states she is seen her primary care a total of 3 times for this complaint and an outpatient clinic she states she is currently on ciprofloxacin. Patient denies fevers, weakness general malaise she denies any back or flank pain. Patient denies abdominal pain. Patient has a nausea or vomiting. Patient denies additional complaints. Upon arrival patient appears nontoxic in no acute distress. - Related Data Home Medications Medication Instructions Recorded Confirmed Bimatoprost [Lumigan .01% Ophth 1 drop RIGHT EYE HS 03/01/16 07/09/19 Soln] Denosumab [Prolia] 1 dose SQ Q180D 12/31/18 07/09/19 Omeprazole [PriLOSEC] 20 mg PO DAILY 12/31/18 07/09/19 Rivaroxaban [Xarelto] 20 mg PO HS 12/31/18 07/09/19 Calcium With Vitamin D 1 tab PO BID 02/27/19 07/09/19 Losartan Potassium [Cozaar] 50 mg PO BID 02/27/19 07/09/19 Previous Rx's Medication Instructions Recorded Nadolol [Corgard] 20 mg PO DAILY 3 Days #90 tablet 03/03/19 Flecainide [Tambocor] 100 mg PO Q12HR #90 tablet 03/04/19 Cefpodoxime Proxetil [Vantin] 200 mg PO Q12HR 10 Days #20 tab 01/29/20 Allergies Allergy/AdvReac Type Severity Reaction Status Date / Time etodolac [From [facility]] Allergy Rash/Hives Verified 01/29/20 10:54 Review of Systems ROS Statement: Those systems with pertinent positive or pertinent negative responses have been documented in the HPI. ROS Other: All systems not noted in ROS Statement are negative. Past Medical History Past Medical History: Atrial Fibrillation, GERD/Reflux, Hypertension, Rheumatoid Arthritis (RA) Additional Past Medical History / Comment(s): AT [facility] ON 01/18/16 History of Any Multi-Drug Resistant Organisms: None Reported Past Surgical History: Cholecystectomy Additional Past Surgical History / Comment(s): [employer], KYPHOPLASTY. Past Anesthesia/Blood Transfusion Reactions: No Reported Reaction Type of Cardiac Device: Permanent Pacemaker Device Placement Date:: 02/2016 Past Psychological History: No Psychological Hx Reported Smoking Status: Never smoker Past Alcohol Use History: None Reported Past Drug Use History: None Reported - Past Family History Mother Additional Family Medical History / Comment(s): BLOOD CLOT IN THE BRAIN, AT AGE 61. Daughter(s) Family Medical History: Cancer Additional Family Medical History / Comment(s): MELANOMA & SQUAMOUS CELL CANCER General Exam - General Exam Comments Initial Comments: General: The patient is awake and alert, in no distress Eye: +3 mm pupils are equal, round and reactive to light, extra-ocular movements are intact. No nystagmus. There is normal conjunctiva bilaterally. No signs of icterus. Ears, nose, mouth and throat: There are moist mucous membranes and no oral lesions. Neck: The neck is supple, there is no tenderness or JVD. Cardiovascular: There is a regular rate and rhythm. No murmur, rub or gallop is appreciated. Respiratory: Lungs are clear to auscultation, respirations are non-labored, breath sounds are equal. No wheezes, stridor, rales, or rhonchi. Gastrointestinal: Soft, non-distended, non-tender abdomen without masses or organomegaly noted. There is no rebound or guarding present. Musculoskeletal: Normal ROM, no tenderness. Strength 5/5. Sensation intact. Radial pulses equal bilaterally 2+. Neurological: A&O x 3. CN II-XII intact grossly, There are no obvious motor or sensory deficits. Coordination appears grossly intact. Speech is normal. Skin: Skin is warm and dry and no rashes or lesions are noted. Psychiatric: Cooperative, appropriate mood & affect, normal judgment. Limitations: no limitations Course Vital Signs 01/29/20 01/29/20 10:52 13:17 Temperature 98.0 F 98.1 F Pulse Rate 62 65 Respiratory 18 14 Rate Blood Pressure 151/77 145/73 O2 Sat by Pulse 96 98 Oximetry Medical Decision Making - Medical Decision Making 79-year-old female presented for chief complaint of dysuria x 5 months. on multiple antibiotics. Patient states that she has been on keflex and ciprofloxacin. Patient denies constitutional symptoms of feet. On urinalysis there is findings consistent with possible infection. Patient will be treated with cefpodoxime for complicatedd female UTI. Patient urine culture pending. Patient sodium low. Givne IV hydration in ER. Patient asymptomatic. Patient case discussed with Dr. El who is agreeable to care plan of discharge with PCP f/u and repeat otupatient labs. patient prefers discharge, and was discharged appearing well. - Lab Data Result diagrams: 01/29/20 11:39 01/29/20 11:39 Lab Results 01/29/20 01/29/20 01/29/20 Range/Units 11:39 11:39 11:39 WBC 8.7 (3.8-10.6) k/uL RBC 3.84 (3.80-5.40) m/uL Hgb 11.3 L (11.4-16.0) gm/dL Hct 35.3 (34.0-46.0) % MCV 92.0 (80.0-100.0) fL MCH 29.5 (25.0-35.0) pg MCHC 32.1 (31.0-37.0) g/dL RDW 12.6 (11.5-15.5) % Plt Count 220 (150-450) k/uL Neutrophils % 72 % Lymphocytes % 11 % Monocytes % 10 % Eosinophils % 2 % Basophils % 0 % Neutrophils # 6.3 (1.3-7.7) k/uL Lymphocytes # 1.0 (1.0-4.8) k/uL Monocytes # 0.9 (0-1.0) k/uL Eosinophils # 0.2 (0-0.7) k/uL Basophils # 0.0 (0-0.2) k/uL Sodium 126 L (137-145) mmol/L Potassium 4.4 (3.5-5.1) mmol/L Chloride 92 L (98-107) mmol/L Carbon Dioxide 23 (22-30) mmol/L Anion Gap 11 mmol/L BUN 20 H (7-17) mg/dL Creatinine 0.62 (0.52-1.04) mg/dL Est GFR (CKD-EPI)AfAm >90 (>60 ml/min/1.73 sqM) Est GFR (CKD-EPI)NonAf 86 (>60 ml/min/1.73 sqM) Glucose 147 H (74-99) mg/dL Calcium 8.6 (8.4-10.2) mg/dL Total Bilirubin 0.9 (0.2-1.3) mg/dL AST 28 (14-36) U/L ALT 29 (4-34) U/L Alkaline Phosphatase 63 (38-126) U/L Total Protein 6.1 L (6.3-8.2) g/dL Albumin 3.5 (3.5-5.0) g/dL Urine Color Dark Yellow Urine Appearance Clear (Clear) Urine pH 6.0 (5.0-8.0) Ur Specific [place] 1.010 (1.001-1.035) Urine Protein Trace H (Negative) Urine Glucose (UA) Negative (Negative) Urine Ketones Negative (Negative) Urine Blood Negative (Negative) Urine Nitrite Negative (Negative) Urine Bilirubin Negative (Negative) Urine Urobilinogen 3.0 (<2.0) mg/dL Ur Leukocyte Esterase Moderate H (Negative) Urine RBC 2 (0-5) /hpf Urine WBC 12 H (0-5) /hpf Ur Squamous Epith Cells 2 (0-4) /hpf Urine Bacteria Rare H (None) /hpf Urine Mucus Rare H (None) /hpf Disposition Clinical Impression: UTI (urinary tract infection), Dysuria, Hyponatremia Disposition: HOME SELF-CARE Condition: Good Instructions (If sedation given, give patient instructions): Urinary Tract Infection in Women (ED) Additional Instructions: Please use medication as discussed. Please follow-up with family doctor in the next 2 days, repeat sodium levels-CMP recommended. Please return to emergency room if the symptoms increase or worsen or for any other concerns. Prescriptions: Cefpodoxime Proxetil [Vantin] 200 mg PO Q12HR 10 Days #20 tab Is patient prescribed a controlled substance at d/c from ED?: No Referrals: Prince Miles MD [Primary Care Provider] - 1-2 days Time of Disposition: 12:46
[2020-01-29] MEDS ORDERED: SODIUM CHLORIDE 0.9% 500 ML 500 ML IV ONE (11:34)
[2020-01-29 12:15] LABS: Basophils % (A) 0 %; Eosinophils # (A) 0.2 k/uL (0-0.7); Eosinophils % (A) 2 %; HCT 35.3 % (34.0-46.0); HGB 11.3 gm/dL (11.4-16.0); Lymphocytes % (A) 11 %; MCH 29.5 pg (25.0-35.0); MCHC 32.1 g/dL (31.0-37.0); Mean Platelet Volume 7.8; Monocytes # (A) 0.9 k/uL (0-1.0); Monocytes % (A) 10 %; Neutrophils # (A) 6.3 k/uL (1.3-7.7); Neutrophils % (A) 72 %; Platelet Count 220 k/uL (150-450); RBC 3.84 m/uL (3.80-5.40); RDW 12.6 % (11.5-15.5); WBC 8.7 k/uL (3.8-10.6)
[2020-01-29 12:27] LABS: ALT 29 U/L (4-34); AST 28 U/L (14-36); African American GFR (CKD) >90 (>60 ml/min/1.73 sqM); Albumin 3.5 g/dL (3.5-5.0); Alkaline Phosphatase 63 U/L (38-126); Anion Gap 11 mmol/L; Blood Urea Nitrogen 20 mg/dL (7-17); Calcium 8.6 mg/dL (8.4-10.2); Carbon Dioxide 23 mmol/L (22-30); Chloride 92 mmol/L (98-107); Glucose 147 mg/dL (74-99); Non-African American GFR(CKD) 86 (>60 ml/min/1.73 sqM); Potassium 4.4 mmol/L (3.5-5.1); Sodium 126 mmol/L (137-145); Total Bilirubin 0.9 mg/dL (0.2-1.3); Total Protein 6.1 g/dL (6.3-8.2)
[2020-01-29 12:33] LABS: Appearance,Urine Clear (Clear); Bacteria,Urine Rare /hpf; Bilirubin,Urine Negative (Negative); Blood,Urine Negative (Negative); Color,Urine Dark Yellow; Glucose,Urine (UA) Negative (Negative); Ketones,Urine Negative (Negative); Leukocyte Esterase,Urine Moderate (Negative); Mucus,Urine Rare /hpf; Nitrite,Urine Negative (Negative); Protein,Urine Trace (Negative); RBC,Urine 2 /hpf (0-5); Squamous Epithelial Cell,Urine 2 /hpf (0-4); WBC,Urine 12 /hpf (0-5)
[2020-01-29 13:18] VITALS: BP 145/73; PULSE 65; RESP 14; TEMP 98.1
== END 2020-01-29 13:19 | disposition home or self-care (01) ==
LOC: EC 10:51
DX: N39.0 Urinary tract infection, site not specified (principal); E87.1 Hypo-osmolality and hyponatremia; I10 Essential (primary) hypertension; K21.9 Gastro-esophageal reflux disease without esophagitis; I48.91 Unspecified atrial fibrillation; Z79.899 Other long term (current) drug therapy; Z79.01 Long term (current) use of anticoagulants; Z88.1 Allergy status to other antibiotic agents; Z88.6 Allergy status to analgesic agent; Z90.49 Acquired absence of other specified parts of digestive tract
CPT/HCPCS: 36415; 80053; 81001; 85025; 87086; 96360; 99283

== ENCOUNTER 2020-12-21 13:19 | Observation (INO) | payer MEDICARE ==
[2020-12-21] MEDS ORDERED: ASPIRIN 81 MG PO STA (14:44)
--- NOTE | 2020-12-21 14:51 | ED ---
General Adult HPI - General Chief complaint: Weakness Stated complaint: SOB/Weakness Time Seen by Provider: 12/21/20 14:20 Source: patient, family, RN notes reviewed Mode of arrival: wheelchair Limitations: no limitations - History of Present Illness Initial comments: Patient is a pleasant 80-year-old female presenting to the emergency department with complaints of fatigue and exertional dyspnea. Symptoms have been sleeping progressive over weeks, worse the last couple of days. Patient was very short of breath and sweaty and fatigued especially yesterday with ambulation. Patient did go to her her doctor's office today and was sent here secondary to abnormal EKG. Patient states no chest pain. No history of similar symptoms previously. Patient does have cardiac history and sees Dr. Falk with history of atrial fibrillation and pacemaker and previous ablation. - Related Data Home Medications Medication Instructions Recorded Confirmed Bimatoprost [Lumigan .01% Ophth 1 drop RIGHT EYE HS 03/01/16 07/09/19 Soln] Denosumab [Prolia] 1 dose SQ Q180D 12/31/18 07/09/19 Omeprazole [PriLOSEC] 20 mg PO DAILY 12/31/18 07/09/19 Rivaroxaban [Xarelto] 20 mg PO HS 12/31/18 07/09/19 Calcium With Vitamin D 1 tab PO BID 02/27/19 07/09/19 Losartan Potassium [Cozaar] 50 mg PO BID 02/27/19 07/09/19 Previous Rx's Medication Instructions Recorded nadoloL [Corgard] 20 mg PO DAILY 3 Days #90 tablet 03/03/19 Flecainide [Tambocor] 100 mg PO Q12HR #90 tablet 03/04/19 Cefpodoxime Proxetil [Vantin] 200 mg PO Q12HR 10 Days #20 tab 01/29/20 Allergies Allergy/AdvReac Type Severity Reaction Status Date / Time etodolac [From [facility]] Allergy Rash/Hives Verified 12/21/20 13:46 Review of Systems ROS Statement: Those systems with pertinent positive or pertinent negative responses have been documented in the HPI. ROS Other: All systems not noted in ROS Statement are negative. Constitutional: Denies: fever Eyes: Denies: eye pain ENT: Denies: ear pain Respiratory: Reports: dyspnea. Denies: cough Cardiovascular: Denies: chest pain Endocrine: Reports: fatigue Gastrointestinal: Denies: abdominal pain Genitourinary: Denies: dysuria Musculoskeletal: Denies: back pain Skin: Denies: rash Neurological: Denies: weakness Past Medical History Past Medical History: Atrial Fibrillation, GERD/Reflux, Hypertension, Rheumatoid Arthritis (RA) Additional Past Medical History / Comment(s): AT [facility] ON 01/18/16 History of Any Multi-Drug Resistant Organisms: None Reported Past Surgical History: Cholecystectomy Additional Past Surgical History / Comment(s): [employer]ER, KYPHOPLASTY. Past Anesthesia/Blood Transfusion Reactions: No Reported Reaction Type of Cardiac Device: Permanent Pacemaker Device Placement Date:: 02/2016 Past Psychological History: No Psychological Hx Reported Smoking Status: Former smoker Past Alcohol Use History: None Reported Past Drug Use History: None Reported - Past Family History Mother Additional Family Medical History / Comment(s): BLOOD CLOT IN THE BRAIN, AT AGE 61. Daughter(s) Family Medical History: Cancer Additional Family Medical History / Comment(s): MELANOMA & SQUAMOUS CELL CANCER General Exam Limitations: no limitations General appearance: alert, in no apparent distress Head exam: Present: normocephalic Eye exam: Present: normal appearance Neck exam: Present: normal inspection Respiratory exam: Present: normal lung sounds bilaterally Cardiovascular Exam: Present: regular rate, normal rhythm, normal heart sounds Expanded Peripheral pulses: 2+: Radial (R), Radial (L), Dorsalis Pedis (R), Dorsalis Pedis (L) GI/Abdominal exam: Present: soft. Absent: tenderness Extremities exam: Present: normal inspection. Absent: pedal edema, calf tenderness Neurological exam: Present: alert Psychiatric exam: Present: normal affect, normal mood Skin exam: Present: normal color Course Vital Signs 12/21/20 13:44 Temperature 97.6 F Pulse Rate 60 Respiratory 18 Rate Blood Pressure 159/70 O2 Sat by Pulse 98 Oximetry - Reevaluation(s) Reevaluation #1: 12/21/20 14:51 EKG reviewed from doctor's office with similar findings. EKG Findings - EKG Comments: EKG Findings:: Paced rhythm 3-60. MO 320. QRS 98. QT 416. QTC 416. Normal axis. Normal QRS. T wave inversion leads V3 through V6 as well as inferior. Medical Decision Making - Medical Decision Making Patient reevaluated and resting comfortably in bed, symptom free at this time. Patient updated on results and plan. Case was discussed in detail with Dr. Garrison, covering for Dr. Velasquez, who will admit. - Lab Data Result diagrams: 12/21/20 14:49 12/21/20 14:49 Lab Results 12/21/20 12/21/20 12/21/20 Range/Units 14:49 14:49 14:49 WBC 5.8 (3.8-10.6) k/uL RBC 4.55 (3.80-5.40) m/uL Hgb 14.0 (11.4-16.0) gm/dL Hct 41.6 (34.0-46.0) % MCV 91.5 (80.0-100.0) fL MCH 30.7 (25.0-35.0) pg MCHC 33.6 (31.0-37.0) g/dL RDW 12.7 (11.5-15.5) % Plt Count 231 (150-450) k/uL MPV 6.8 Neutrophils % 50 % Lymphocytes % 36 % Monocytes % 8 % Eosinophils % 3 % Basophils % 1 % Neutrophils # 2.9 (1.3-7.7) k/uL Lymphocytes # 2.1 (1.0-4.8) k/uL Monocytes # 0.4 (0-1.0) k/uL Eosinophils # 0.2 (0-0.7) k/uL Basophils # 0.1 (0-0.2) k/uL PT 11.4 (9.0-12.0) sec INR 1.1 (<1.2) APTT 23.6 (22.0-30.0) sec Sodium 134 L (137-145) mmol/L Potassium 4.9 (3.5-5.1) mmol/L Chloride 99 (98-107) mmol/L Carbon Dioxide 26 (22-30) mmol/L Anion Gap 9 mmol/L BUN 14 (7-17) mg/dL Creatinine 0.60 (0.52-1.04) mg/dL Est GFR (CKD-EPI)AfAm >90 (>60 ml/min/1.73 sqM) Est GFR (CKD-EPI)NonAf 87 (>60 ml/min/1.73 sqM) Glucose 104 H (74-99) mg/dL Calcium 10.2 (8.4-10.2) mg/dL Magnesium 1.9 (1.6-2.3) mg/dL Total Bilirubin 0.4 (0.2-1.3) mg/dL AST 32 (14-36) U/L ALT 25 (4-34) U/L Alkaline Phosphatase 87 (38-126) U/L Troponin I (0.000-0.034) ng/mL NT-Pro-B Natriuret Pep pg/mL Total Protein 7.4 (6.3-8.2) g/dL Albumin 4.7 (3.5-5.0) g/dL 12/21/20 12/21/20 Range/Units 14:49 14:49 WBC (3.8-10.6) k/uL RBC (3.80-5.40) m/uL Hgb (11.4-16.0) gm/dL Hct (34.0-46.0) % MCV (80.0-100.0) fL MCH (25.0-35.0) pg MCHC (31.0-37.0) g/dL RDW (11.5-15.5) % Plt Count (150-450) k/uL MPV Neutrophils % % Lymphocytes % % Monocytes % % Eosinophils % % Basophils % % Neutrophils # (1.3-7.7) k/uL Lymphocytes # (1.0-4.8) k/uL Monocytes # (0-1.0) k/uL Eosinophils # (0-0.7) k/uL Basophils # (0-0.2) k/uL PT (9.0-12.0) sec INR (<1.2) APTT (22.0-30.0) sec Sodium (137-145) mmol/L Potassium (3.5-5.1) mmol/L Chloride (98-107) mmol/L Carbon Dioxide (22-30) mmol/L Anion Gap mmol/L BUN (7-17) mg/dL Creatinine (0.52-1.04) mg/dL Est GFR (CKD-EPI)AfAm (>60 ml/min/1.73 sqM) Est GFR (CKD-EPI)NonAf (>60 ml/min/1.73 sqM) Glucose (74-99) mg/dL Calcium (8.4-10.2) mg/dL Magnesium (1.6-2.3) mg/dL Total Bilirubin (0.2-1.3) mg/dL AST (14-36) U/L ALT (4-34) U/L Alkaline Phosphatase (38-126) U/L Troponin I <0.012 (0.000-0.034) ng/mL NT-Pro-B Natriuret Pep 390 pg/mL Total Protein (6.3-8.2) g/dL Albumin (3.5-5.0) g/dL - Radiology Data Radiology results: image reviewed (Chest x-ray reveals no acute process) Disposition Clinical Impression: Exertional dyspnea, T wave inversion in EKG Disposition: ADMITTED IP TO THIS HOSP Is patient prescribed a controlled substance at d/c from ED?: No Referrals: Prince Miles MD [Primary Care Provider] - 1-2 days Decision Time: 15:46
[2020-12-21 15:06] LABS: Basophils # (A) 0.1 k/uL (0-0.2); Basophils % (A) 1 %; Eosinophils # (A) 0.2 k/uL (0-0.7); Eosinophils % (A) 3 %; HCT 41.6 % (34.0-46.0); Lymphocytes # (A) 2.1 k/uL (1.0-4.8); Lymphocytes % (A) 36 %; MCH 30.7 pg (25.0-35.0); MCHC 33.6 g/dL (31.0-37.0); MCV 91.5 fL (80.0-100.0); Mean Platelet Volume 6.8; Monocytes # (A) 0.4 k/uL (0-1.0); Monocytes % (A) 8 %; Neutrophils # (A) 2.9 k/uL (1.3-7.7); Neutrophils % (A) 50 %; Platelet Count 231 k/uL (150-450); RBC 4.55 m/uL (3.80-5.40); RDW 12.7 % (11.5-15.5); WBC 5.8 k/uL (3.8-10.6)
--- NOTE | 2020-12-21 15:12 | XR ---
EXAMINATION TYPE: XR chest 2V DATE OF EXAM: 12/21/2020 COMPARISON: Chest x-ray 03/09/2016 HISTORY: Chest pain TECHNIQUE: Frontal and lateral views of the chest are obtained. FINDINGS: Generator is stable in the left pectoral region, leads in right atrium and ventricle. Vert ebroplasty changes are present in the midthoracic spine. Patient is rotated and the elevated right he midiaphragm is chronic. No evident airspace disease, pneumothorax, or pleural effusion. There are ove rlying leads. Cardiac mediastinal silhouette is stable. Aorta is dense. IMPRESSION: No acute cardiopulmonary process.
[2020-12-21 15:13] LABS: ALT 25 U/L (4-34); AST 32 U/L (14-36); African American GFR (CKD) >90 (>60 ml/min/1.73 sqM); Albumin 4.7 g/dL (3.5-5.0); Alkaline Phosphatase 87 U/L (38-126); Anion Gap 9 mmol/L; Blood Urea Nitrogen 14 mg/dL (7-17); Calcium 10.2 mg/dL (8.4-10.2); Carbon Dioxide 26 mmol/L (22-30); Chloride 99 mmol/L (98-107); Glucose 104 mg/dL (74-99); INR 1.1 (<1.2); Magnesium 1.9 mg/dL (1.6-2.3); Non-African American GFR(CKD) 87 (>60 ml/min/1.73 sqM); Partial Thromboplastin Time 23.6 sec (22.0-30.0); Potassium 4.9 mmol/L (3.5-5.1); Prothrombin Time 11.4 sec (9.0-12.0); Sodium 134 mmol/L (137-145); Total Bilirubin 0.4 mg/dL (0.2-1.3); Total Protein 7.4 g/dL (6.3-8.2)
[2020-12-21] MEDS ORDERED: NITROGLYCERIN SL TABS 0.4 MG TAB SUBLINGUAL PRN (15:46)
[2020-12-21] MEDS ORDERED: ACETAMINOPHEN TAB 325 MG TAB PO PRN (17:49)
--- NOTE | 2020-12-21 18:00 | P.HPIM ---
<Tyron Quinn - Last Filed: 12/21/20 17:37> History of Present Illness H&P Date: 12/21/20 History of Presenting Illness: Patient is a very pleasant 80-year-old female with a past medical history including atrial fibrillation status post ablation in 2019 and pacemaker placement, GERD and rheumatoid arthritis. Patient reports over the past 4-5 months she has been having increased weakness, fatigue, and shortness of breath with exertion. Patient reports over the past 2 weeks this has significantly worsened and yesterday she was extremely short of breath, diaphoretic, and fa tigued she went to her PCPs office this morning. Patient reports after discussing with her PCP and EKG was completed she was sent to the hospital secondary to having an abnormal EKG. Patient was seen and fully evaluated in the emergency department. EKG completed showing atrial paced rhythm with T-wave inversion in leads II, III, aVF, V1, and V4 through V6 unchanged from previous EKG completed on 03/04/19. Troponin negative at < 0.012. ProBNP 390. Chest x- ray negative for acute cardiopulmonary process. Patient admitted under our services with consultation to cardiology to undergo complete cardiac workup. Patient reports typical palpitations stating no worse or better than her normal with her chronic atrial fibrillation, denies headache, lightheadedness, dizziness, chest pain, shortness of breath at rest, abdominal pain, nausea, vomiting, changes in her difficulties with her urinary or bowel function, or experiencing any numbness/tingling/weakness/swelling in her extremities. Review of systems: Pertinent positives and negatives as discussed in HPI, a complete review of systems was performed and all other systems are negative. Physical exam: General: non toxic, no distress, appears at stated age Derm: warm, dry Head: atraumatic, normocephalic, symmetric Eyes: EOMI, no lid lag, anicteric sclera Mouth: no lip lesion, mucus membranes moist Cardiovascular: S1-S2 normal with irregularly irregular rhythm with controlled rate. No murmurs, gallops, or rubs noted. Posterior tibial pulses palpated bilaterally. Cap refill less than 2 seconds. Pacemaker left anterior chest Lungs: Respirations even, regular, and unlabored on room air. Lungs clear to auscultation bilaterally with no wheezes, rhonchi, or rales noted. No accessory muscle usage. Abdominal: Obese abdomen soft, nontender to palpation, no guarding, no appreciable organomegaly Ext: no gross muscle atrophy, no edema, no contractures Neuro: GCS 15. Speech clear. CN II-XI grossly intact, no focal neuro deficits Psych: Alert, oriented, appropriate affect Assessment and Plan of Care: Exertional dyspnea accompanied by fatigue -EKG completed showing atrial paced rhythm with T-wave inversion in leads II, III, aVF, V1, and V4 through V6 unchanged from previous EKG completed on 03/04/19. -Troponin negative at < 0.012. ProBNP 390. -Chest x-ray negative for acute cardiopulmonary process. -Cardiology consulted -Telemetry monitoring -Trend troponins -Echocardiogram Atrial fibrillation -Continue nadolol, flecainide, and Xarelto. GERD -Protonix 40 mg each morning. The patient is admitted with an anticipated greater than 2 midnight stay for evaluation of exertional dyspnea and fatigue CODE STATUS: Full code DVT prophylaxis: Xarelto Discussed with: Patient and her Anticipated discharge date: 1-[address]: Home A total of 45 minutes was spent on the care of this complex patient more than 50% of the time was spent in counseling and care coordination. Past Medical History Past Medical History: Atrial Fibrillation, GERD/Reflux, Hypertension, Rheumatoid Arthritis (RA) Additional Past Medical History / Comment(s): AT [facility] ON 01/18/16 History of Any Multi-Drug Resistant Organisms: None Reported Past Surgical History: Cholecystectomy Additional Past Surgical History / Comment(s): [employer], KYPHOPLASTY. Past Anesthesia/Blood Transfusion Reactions: No Reported Reaction Type of Cardiac Device: Permanent Pacemaker Device Placement Date:: 02/2016 Past Psychological History: No Psychological Hx Reported Smoking Status: Former smoker Past Alcohol Use History: None Reported Past Drug Use History: None Reported - Past Family History Mother Additional Family Medical History / Comment(s): BLOOD CLOT IN THE BRAIN, AT AGE 61. Daughter(s) Family Medical History: Cancer Additional Family Medical History / Comment(s): MELANOMA & SQUAMOUS CELL CANCER Medications and Allergies Home Medications Medication Instructions Recorded Confirmed Type Rivaroxaban [Xarelto] 20 mg PO HS 12/31/18 12/21/20 History Losartan Potassium [Cozaar] 50 mg PO BID 02/27/19 12/21/20 History Acetaminophen [Tylenol Arthritis] 650 mg PO Q8H PRN 12/21/20 12/21/20 History Cranberry Fruit Extract [Cranberry] 500 mg PO DAILY 12/21/20 12/21/20 History Flecainide Acetate 100 mg PO Q12H 12/21/20 12/21/20 History Multivitamins, Thera [Multivitamin 1 tab PO DAILY 12/21/20 12/21/20 History (formulary)] Nitrofurantoin Macrocrystal 50 mg PO HS 12/21/20 12/21/20 History [Nitrofurantoin] nadoloL [Corgard] 20 mg PO BID 12/21/20 12/21/20 History Allergies Allergy/AdvReac Type Severity Reaction Status Date / Time etodolac [From Lodine] Allergy Rash/Hives Verified 12/21/20 16:32 Physical Exam Vitals: Vital Signs Temp Pulse Resp BP Pulse Ox 12/21/20 13:44 97.6 F 60 18 159/70 98 Intake and Output 12/21/20 12/21/20 12/21/20 06:59 14:59 22:59 Other: Weight 93.894 kg Results CBC & Chem 7: 12/21/20 14:49 12/21/20 14:49 Labs: Abnormal Lab Results - Last 24 Hours (Table) 12/21/20 Range/Units 14:49 Sodium 134 L (137-145) mmol/L Glucose 104 H (74-99) mg/dL <Rosy Linder - Last Filed: 12/21/20 18:24> Physical Exam Osteopathic Statement: *. No significant issues noted on an osteopathic structural exam other than those noted in the History and Physical/Consult. Vitals: Vital Signs Temp Pulse Resp BP Pulse Ox 12/21/20 13:44 97.6 F 60 18 159/70 98 Intake and Output 12/21/20 12/21/20 12/21/20 06:59 14:59 22:59 Other: Weight 93.894 kg Results CBC & Chem 7: 12/21/20 14:49 12/21/20 14:49 Labs: Abnormal Lab Results - Last 24 Hours (Table) 12/21/20 Range/Units 14:49 Sodium 134 L (137-145) mmol/L Glucose 104 H (74-99) mg/dL Assessment and Plan Assessment: Patient seen and examined independently. Patient was also seen by Tyron Quinn NP and case was discussed. I am in agreement with subjective, physical exam, assessment and plan as written above and amended below. Currently chest pain-free we discussed having cardiology see her in the morning and trending her troponins. General: non toxic, no distress, appears at stated age Derm: warm, dry Head: atraumatic, normocephalic, symmetric Eyes: EOMI, no lid lag, anicteric sclera Mouth: no lip lesion, mucus membranes moist Cardiovascular: S1S2 reg, no murmur, positive posterior tibial pulse bilateral, Lungs: CTA bilateral, no rhonchi, no rales , no accessory muscle use Abdominal: soft, nontender to palpation, no guarding, no appreciable organomegaly Ext: no gross muscle atrophy, no edema, no contractures Neuro: CN II-XI grossly intact, no focal neuro deficits Psych: Alert, oriented, appropriate affect
[2020-12-21] MEDS: FLECAINIDE 50 MG TAB PO SCH (19:41)
[2020-12-21] MEDS: LOSARTAN 50 MG TAB PO SCH (19:42)
[2020-12-21] MEDS ORDERED: RIVAROXABAN 20 MG TAB PO SCH (21:00)
[2020-12-22 06:54] VITALS: RESP 18
[2020-12-22] MEDS ORDERED: PANTOPRAZOLE 40 MG TABLET PO SCH (07:30)
[2020-12-22] MEDS ORDERED: REGADENOSON 0.4 MG/5 ML SYRINGE IV PRN (08:27)
[2020-12-22] MEDS ORDERED: AMINOPHYLLINE 500 MG/20 ML VIAL IV PRN (08:27)
[2020-12-22] MEDS ORDERED: CAFFEINE CITRATE 60 MG/3 ML VIAL IV PRN (08:27)
[2020-12-22] MEDS: FLECAINIDE 50 MG TAB PO SCH (08:44)
[2020-12-22 08:45] LABS: HCT 42.7 % (34.0-46.0); HGB 13.6 gm/dL (11.4-16.0); MCH 29.8 pg (25.0-35.0); MCHC 31.9 g/dL (31.0-37.0); MCV 93.4 fL (80.0-100.0); Platelet Count 208 k/uL (150-450); RBC 4.57 m/uL (3.80-5.40); RDW 13.3 % (11.5-15.5); WBC 4.6 k/uL (3.8-10.6)
[2020-12-22] MEDS: LOSARTAN 50 MG TAB PO SCH (08:46)
[2020-12-22] MEDS ORDERED: ASPIRIN 325 MG TAB PO SCH (09:00)
[2020-12-22 09:34] LABS: African American GFR (CKD) >90 (>60 ml/min/1.73 sqM); Anion Gap 7 mmol/L; Blood Urea Nitrogen 11 mg/dL (7-17); Calcium 9.8 mg/dL (8.4-10.2); Carbon Dioxide 30 mmol/L (22-30); Chloride 99 mmol/L (98-107); Glucose 109 mg/dL (74-99); Non-African American GFR(CKD) 85 (>60 ml/min/1.73 sqM); Potassium 5.1 mmol/L (3.5-5.1); Sodium 136 mmol/L (137-145)
[2020-12-22 10:45] LABS: Chol/HDL Ratio 3.1; LDL Cholesterol,Calculated 81.6 mg/dL (0.0-131.0); VLDL Calculation 25.4 mg/dL (5.00-40.00)
--- NOTE | 2020-12-22 11:20 | P.PN ---
Subjective Progress Note Date: 12/22/20 Hospital course: Patient is a very pleasant 80-year-old female with a past medical history including atrial fibrillation status post ablation in 2019 and pacemaker placement, GERD and rheumatoid arthritis. Patient reports over the past 4-5 months she has been having increased weakness, fatigue, and shortness of breath with exertion. Patient reports over the past 2 weeks this has significantly worsened and yesterday she was extremely short of breath, diaphoretic, and fatigued she went to her PCPs office this morning. Patient reports after discussing with her PCP and EKG was completed she was sent to the hospital secondary to having an abnormal EKG. Patient was seen and fully evaluated in the emergency department. EKG completed showing atrial paced rhythm with T-wave inversion in leads II, III, aVF, V1, and V4 through V6 unchanged from previous EKG completed on 03/04/19. Troponin negative at < 0.012. ProBNP 390. Chest x- ray negative for acute cardiopulmonary process. Patient admitted under our services with consultation to cardiology to undergo complete cardiac workup. Troponins trended and negative at < 0.012 x 3 occurrences. Awaiting e chocardiogram to be completed. Cardiology evaluated and plans to take patient for stress test later today. Physical exam: Patient seen and fully evaluated at the bedside this morning. She denies having any complaints or concerns. Denies chest pain, increased palpitations, shortness of breath at rest. Patient reports continued shortness of breath with exertion such as walking to the restroom. Cardiology seen and evaluated patient with plans to take patient for stress testing later today. Awaiting echocardiogram to be completed. General: non toxic, no distress, appears at stated age Derm: warm, dry Head: atraumatic, normocephalic, symmetric Eyes: EOMI, no lid lag, anicteric sclera Mouth: no lip lesion, mucus membranes moist Cardiovascular: Irregularly irregular rhythm with controlled rate. No murmurs, gallops, or rubs noted. Posterior tibial pulses palpated bilaterally. Cap refill less than 2 seconds. Pacemaker left anterior chest Lungs: Respirations even, regular, and unlabored on room air. Lungs clear to auscultation bilaterally with no wheezes, rhonchi, or rales noted. No accessory muscle usage. Abdominal: Obese abdomen soft, nontender to palpation, no guarding, no appreciable organomegaly Ext: no gross muscle atrophy, no edema, no contractures Neuro: GCS 15. Speech clear. CN II-XI grossly intact, no focal neuro deficits Psych: Alert, oriented, appropriate affect Assessment and Plan of Care: Exertional dyspnea accompanied by fatigue -EKG completed showing atrial paced rhythm with T-wave inversion in leads II, III, aVF, V1, and V4 through V6 unchanged from previous EKG completed on 03/04/19. -Troponin negative at < 0.012 x 3. ProBNP 390. -Chest x-ray negative for acute cardiopulmonary process. -Cardiology following and plans to take patient for stress testing later today -Telemetry monitoring -Patient to continue daily aspirin, flat denied, losartan, nadolol, and Xarelto. -Echocardiogram Atrial fibrillation -Continue nadolol, flecainide, and Xarelto. GERD -Protonix 40 mg each morning. The patient is admitted with an anticipated greater than 2 midnight stay for evaluation of exertional dyspnea and fatigue CODE STATUS: Full code DVT prophylaxis: Xarelto Discussed with: Patient and RN Anticipated discharge date: 1-[address]: Home A total of 45 minutes was spent on the care of this complex patient more than 50% of the time was spent in counseling and care coordination. Objective - Vital Signs Vital signs: Vital Signs Temp 97.6 F 12/21/20 17:46 Pulse 63 12/22/20 06:53 Resp 18 12/22/20 06:53 BP 163/74 12/22/20 06:53 Pulse Ox 94 L 12/22/20 06:53 Intake & Output 12/21/20 12/22/20 12/22/20 18:59 06:59 18:59 Weight 93.894 kg 93.89 kg - Labs CBC & Chem 7: 12/22/20 08:14 12/22/20 08:14 Labs: Abnormal Lab Results - Last 24 Hours (Table) 12/21/20 12/22/20 Range/Units 14:49 08:14 Sodium 134 L 136 L (137-145) mmol/L Glucose 104 H 109 H (74-99) mg/dL
[2020-12-22 13:21] VITALS: PULSE 60
[2020-12-22 14:27] VITALS: BP 151/69; TEMP 97.1
--- NOTE | 2020-12-22 14:29 | NM ---
EXAMINATION TYPE: NM stress lexiscan cardiolite DATE OF EXAM: 12/22/2020 COMPARISON: NONE HISTORY: Chest pain TECHNIQUE: After the intravenous administration of 9.59 mCi Tc 99m Sestamibi - Cardiolite resting SP ECT images acquired post injection. At peak stress 26.9 mCi Tc 99m Sestamibi - Stress images obtained post injection The patient was stressed with 0.4mg Lexiscan. FINDINGS: No fixed defects are evident No reversible stress defects on Spect images There is some dyskinesia of the septal wall near the cardiac apex Ejection fraction is calculated to be 58 %. IMPRESSION: 1. No scintigraphic evidence for reversible ischemia. 2. There may be a small prior infarct along the inferior lateral wall. 3. Dyskinesia of the distal septal wall. 4. Normal ejection fraction
--- NOTE | 2020-12-22 15:13 | CONS ---
CONSULTATION CHIEF COMPLAINT: Exertional shortness of breath. HISTORY OF PRESENT ILLNESS: Ginny is an 80-year-old lady with history of paroxysmal atrial fibrillation status post ablation, status post permanent pacemaker, who presented to the hospital complaining of exertional shortness of breath. She states that she has been becoming more and more short of breath, fatigued and tired over the last several months. At the time of my evaluation, she appears comfortable at rest. Does not have any chest pain. Coronavirus test is negative. She had 3 sets of troponins that are negative. Her BNP is normal. EKG shows paced rhythm with nonspecific ST-T wave changes. Chest x-ray did not reveal any acute pulmonary pathology. At the time of my evaluation this morning, she appears comfortable at rest and is free of symptoms. I am going to obtain an echocardiogram to evaluate her LV function and a stress test to rule out ischemia. PAST MEDICAL HISTORY: Significant for paroxysmal atrial fibrillation, hypertension. The patient had ablation and a pacemaker. CURRENT MEDICATIONS: Include Corgard 20 b.i.d., Xarelto 20 daily, Cozaar 50 b.i.d., flecainide and Tylenol. ALLERGIES: LODINE. FAMILY HISTORY: Negative for premature coronary artery disease. SOCIAL HISTORY: Negative for smoking, EtOH abuse, or drug abuse. REVIEW OF SYSTEMS: HEENT is unremarkable. CARDIAC as described above. RESPIRATORY as described above. GI negative. : Negative. ALLERGY/IMMUNOLOGY: None. SKIN negative. MUSCULOSKELETAL: Significant for arthritis. PSYCHOSOCIAL: Negative. ENDOCRINE: Negative. HEMATOLOGICAL negative. DERM: Negative. CONSTITUTIONAL: Negative. Rest of the system review is not relevant. EXAM: Comfortable at rest. Heart rate is 90 beats per minute. Blood pressure is 140/61, respiratory 16. There is no jugular venous distention. Carotid upstroke is normal. There is no bruit. Chest exam reveals good air entry bilaterally. Heart exam reveals first and second heart sounds. No gallop. No murmur. No rub. Abdomen is soft, nontender. Examination of extremities did not reveal any edema. Peripheral pulses are felt. LABS: Labs show that the potassium is 5.1, creatinine is 0.64. Troponins are negative. BNP is normal. Coronavirus is negative. EKG shows nonspecific ST-T wave changes. ASSESSMENT AND PLAN: 1. Exertional shortness of breath, rule out cardiac causes. Patient will undergo a Lexiscan and echocardiogram for further evaluation and if necessary undergo cardiac catheterization. 2. Paroxysmal atrial fibrillation status post ablation. 3. Tachy-juju syndrome status post permanent pacemaker. MMODL / IJN: [id number] /
--- NOTE | 2020-12-22 15:14 | P.DS ---
<Tyron Quinn - Last Filed: 12/22/20 16:01> Providers Expected date of discharge: 12/22/20 Hospital Course: Discharge Diagnoses: Exertional dyspnea accompanied by fatigue, cardiac etiology ruled out possibly secondary to underlying chronic lung condition vs physical deconditioning Atrial fibrillation on anticoagulation with Xarelto. GERD Hospital course: Patient is a very pleasant 80-year-old female with a past medical history including atrial fibrillation status post ablation in 2019 and pacemaker placement, GERD and rheumatoid arthritis. Patient reports over the past 4-5 months she has been having increased weakness, fatigue, and shortness of breath with exertion. Patient reports over the past 2 weeks this has significantly worsened and yesterday she was extremely short of breath, diaphoretic, and fatigued she went to her PCPs office this morning. Patient reports after discussing with her PCP and EKG was completed she was sent to the hospital secondary to having an abnormal EKG. Patient was seen and fully evaluated in the emergency department. EKG completed showing atrial paced rhythm with T-wave inversion in leads II, III, aVF, V1, and V4 through V6 unchanged from previous EKG completed on 03/04/19. Troponin negative at < 0.012. ProBNP 390. Chest x- ray negative for acute cardiopulmonary process. Patient admitted under our services with consultation to cardiology to undergo complete cardiac workup. Troponins trended and negative at < 0.012 x 3 occurrences. Awaiting echocardiogram to be completed. Cardiology consulted and also seen and evaluated patient completing a Lexiscan stress test which showed no scintigraphic evidence for reversible ischemia with possible small area of prior infarct along the inferior lateral wall, dyskinesia of the distal septal wall with normal EF of 58%. Pt cleared by cardiology for discharge home at this time and is also medically clear for discharge. Pt to continue daily medication regimen with aspirin, flecainide, losartan, nadolol,and xarelto. She was instructed to follow up with her primary care provider Dr. Miles in 1-2 days for a post-hospitalization follow-up and was provided with the information for Dr. Persaud the survey cad technician to set up an appointment for pulmonary function tests as we discussed. Pt to also follow up with Dr. Ravi the receivable clerk in 2 weeks. All questions answered. Pt denies currrently experiencing any chest pain, palpitations, shortness of breath, dizziness, lightheadedness, or any other complaints at this time. Patient stable for discharge home. Physical exam: Please see progress note same date. Plan - Discharge Summary Discharge Rx Participant: No New Discharge Prescriptions: New Aspirin 325 mg PO DAILY tab Continue Rivaroxaban [Xarelto] 20 mg PO HS Losartan Potassium [Cozaar] 50 mg PO BID Multivitamins, Thera [Multivitamin (formulary)] 1 tab PO DAILY nadoloL [Corgard] 20 mg PO BID Acetaminophen [Tylenol Arthritis] 650 mg PO Q8H PRN PRN Reason: Pain Cranberry Fruit Extract [Cranberry] 500 mg PO DAILY Flecainide Acetate 100 mg PO Q12H No Action Nitrofurantoin Macrocrystal [Nitrofurantoin] 50 mg PO HS Discharge Medication List Rivaroxaban [Xarelto] 20 mg PO HS 12/31/18 [History] Losartan Potassium [Cozaar] 50 mg PO BID 02/27/19 [History] Acetaminophen [Tylenol Arthritis] 650 mg PO Q8H PRN 12/21/20 [History] Cranberry Fruit Extract [Cranberry] 500 mg PO DAILY 12/21/20 [History] Flecainide Acetate 100 mg PO Q12H 12/21/20 [History] Multivitamins, Thera [Multivitamin (formulary)] 1 tab PO DAILY 12/21/20 [History] Nitrofurantoin Macrocrystal [Nitrofurantoin] 50 mg PO HS 12/21/20 [History] nadoloL [Corgard] 20 mg PO BID 12/21/20 [History] Aspirin 325 mg PO DAILY tab 12/22/20 [Rx] Follow up Appointment(s)/Referral(s): Prince Miles MD [Primary Care Provider] - 1-2 days (Please call when office is open to make appointment) Nura Falk MD [STAFF PHYSICIAN] - 01/26/21 3:30 pm (Keep previous appointment made on January 26 @3:30pm) Jailyn Persaud MD [STAFF PHYSICIAN] - 1 Week (Need to schedule Pulmonary Function Tests Please call tomorrow with the office is open to make appontment) Patient Instructions/Handouts: Chest Pain (DC), Heart Healthy Diet (DC), Dyspnea (DC) Activity/Diet/Wound Care/Special Instructions: Activity: As tolerated, and take breaks as needed. Avoid outdoor activities on e xcessively hot days. Diet: Heart Healthy Special Instructions: Thank you for allowing us to take part in your care, it was a pleasure to get to meet you and your . It is important to follow up with your primary care provider Dr. Miles in 1-2 days for a post-hospitalization follow-up. We provided you with the information for Dr. Persaud the survey cad technician or lung doctor in which we would like you to set up an appointment to schedule pulmonary function tests as we discussed. lastly, we will have you follow up with Dr. Ravi the receivable clerk in 2 weeks. Continue to take her medications as prescribed, there were no changes made to your daily medication regimen at this time. <Rosy Linder - Last Filed: 12/22/20 17:39> Providers Date of admission: 12/21/20 15:46 Attending physician: Rosy Linder DO Consults: 12/21/20 15:46 Consult Physician Urgent Consulting Provider: Attila Abdi Consult Reason/Comments: Exertional dyspnea with T wave inversions. Do you want consulting provider notified?: Yes Primary care physician: Prince Miles MD Hospital Course: Patient seen and examined independently. Patient was also seen by Tyron Quinn NP and case was discussed. I am in agreement with subjective, physical exam, assessment and plan as written above and amended below. Patient seen and examined with at bedside. We discussed that she should continue to workup possible causes of her dyspnea. I have suggested that she follow with pulmonary for possible pulmonary function studies as well as workup for possible obstructive sleep apnea as Lexiscan stress test revealed no signs of reversible ischemia and preserved ejection fraction. Patient is in agreement. General: non toxic, no distress, appears at stated age Derm: warm, dry Head: atraumatic, normocephalic, symmetric Eyes: EOMI, no lid lag, anicteric sclera Mouth: no lip lesion, mucus membranes moist Cardiovascular: S1S2 reg, no murmur, positive posterior tibial pulse bilateral, Lungs: CTA bilateral, no rhonchi, no rales , no accessory muscle use Psych: Alert, oriented, appropriate affect
--- NOTE | 2020-12-22 16:01 | EST ---
EXERCISE STRESS DATE OF SERVICE: 12/22/2020. INDICATION: Chest pain. AGE 80 SEX: F HT: 5'6" WT: 206 lbs PROTOCOL: Lexiscan STAGE: N/A DURATION OF EXERCISE: 5 minutes HEART RATE REST: 60 BLOOD PRESSURE REST: 101/80 MAXIMUM HEART RATE ACHIEVED: 62 MAXIMUM BLOOD PRESSURE: 162/60 85% MPHR: 119 100% MPHR: 140 METS: N/A RESULTS: Baseline EKG shows paced rhythm. The patient was given intravenous Lexiscan as per protocol, did not have chest pain or diagnostic ST-segment depression. CONCLUSIONS: 1. Inconclusive EKG part of the stress test due to the paced rhythm. 2. Cardiolite portion of the stress test will be reported separately. MMODL / IJN: [id number] /
--- NOTE | 2020-12-23 11:00 | ECHOF ---
Referral Reason:Exertional dyspnea MEASUREMENTS -------- HEIGHT: 167.6 cm WEIGHT: 93.9 kg BP: 163/74 RVIDd: 3.9 cm (< 3.3) IVSd: 1.1 cm (0.6 - 1.1) LVIDd: 4.9 cm (3.9 - 5.3) LVPWd: 1.2 cm (0.6 - 1.1) IVSs: 1.5 cm LVIDs: 3.5 cm LVPWs: 2.0 cm LA Diam: 4.6 cm (2.7 - 3.8) LAESV Index (A-L): 38.66 ml/m Ao Diam: 3.4 cm (2.0 - 3.7) AV Cusp: 2.0 cm (1.5 - 2.6) MV EXCURSION: 13.275 mm (> 18.000) MV EF SLOPE: 180 mm/s (70 - 150) EPSS: 0.2 cm MV E Andrés: 0.93 m/s MV DecT: 184 ms MV A Andrés: 0.44 m/s MV E/A Ratio: 2.10 RAP: 5.00 mmHg RVSP: 41.36 mmHg FINDINGS -------- Paced rhythm. This was a technically adequate study. The left ventricular size is normal. There is borderline concentric left ventricular hypertrophy. Overall left ventricular systolic function is normal with, an EF between 60 - 65 %. The right ventricle is mild to moderately enlarged. LA is moderately dilated 34-39 ml/m2 The right atrium is normal in size. Interatrial and interventricular septum intact. The aortic valve is trileaflet and appears structurally normal. Trace amount of aortic regurgitatio n. Mild mitral regurgitation is present. Mild tricuspid regurgitation present. There is mild pulmonary hypertension. The right ventricular systolic pressure, as measured by Doppler, is 41.36mmHg. Trace/mild (physiologic) pulmonic regurgitation. The aortic root size is normal. Normal inferior vena cava with normal inspiratory collapse consistent with estimated right atrial pre ssure of 5 mmHg. There is no pericardial effusion. CONCLUSIONS -------- 1. The left ventricular size is normal. 2. There is borderline concentric left ventricular hypertrophy. 3. Overall left ventricular systolic function is normal with, an EF between 60 - 65 %. 4. The right ventricle is mild to moderately enlarged. 5. LA is moderately dilated 34-39 ml/m2 6. The aortic valve is trileaflet and appears structurally normal. 7. Trace amount of aortic regurgitation. 8. Mild mitral regurgitation is present. 9. Mild tricuspid regurgitation present. 10. There is mild pulmonary hypertension. 11. The right ventricular systolic pressure, as measured by Doppler, is 41.36mmHg. 12. Trace/mild (physiologic) pulmonic regurgitation. 13. There is no pericardial effusion. FURNACE BUILDER: Tiera Denton RDCS
== END 2020-12-22 17:36 | disposition home or self-care (01) ==
LOC: EC 13:19 → 1SOBS 15:46 → 6NMEDSUR 20:52
PROVIDERS: ADMIT Internal Medicine; ATTEND Internal Medicine
DX: R06.09 Other forms of dyspnea (principal); R53.83 Other fatigue; I48.0 Paroxysmal atrial fibrillation; R00.2 Palpitations; I49.5 Sick sinus syndrome; K21.9 Gastro-esophageal reflux disease without esophagitis; Z20.822 Contact with and (suspected) exposure to COVID-19; G24.9 Dystonia, unspecified; I10 Essential (primary) hypertension; M06.9 Rheumatoid arthritis, unspecified; Z79.01 Long term (current) use of anticoagulants; Z79.899 Other long term (current) drug therapy; Z88.6 Allergy status to analgesic agent; Z95.0 Presence of cardiac pacemaker; Z90.49 Acquired absence of other specified parts of digestive tract; Z80.8 Family history of malignant neoplasm of other organs or systems; Z83.2 Family history of diseases of the blood and blood-forming organs and certain disorders involving the immune mechanism
CPT/HCPCS: 99285; 36415; 93005; 93017; 93306; 83880; 80061; 80053; 80048; 83735; 84484; 85025; 85027; 85610; 85730; 87635; 71046; 78452; G0378 ×2; A9500; J2785

== ENCOUNTER → 2021-06-19 | Outpatient (CLI) | payer MEDICARE ==
--- NOTE | 2021-06-19 12:08 | FL ---
Modified barium swallow. HISTORY: Dysphagia. Modified barium swallow was performed with the department of speech pathology. The patient was prese nted with various consistencies of barium. There is no evidence for aspiration or penetration. Full report is to follow from the department of speech pathology. Impression: Normal study.
== END | disposition home or self-care (01) ==
LOC: RADUSWWP 11:01
PROVIDERS: ATTEND Internal Medicine Critical Care Medicine
DX: R13.10 Dysphagia, unspecified (principal)
CPT/HCPCS: 74230

== ENCOUNTER 2021-08-01 02:05 | Inpatient (IN) | payer MEDICARE ==
[2021-08-01] MEDS ORDERED: SODIUM CHLORIDE 0.9% 1,000 ML IV STA (02:20)
--- NOTE | 2021-08-01 02:41 | ED ---
SOB HPI - General Chief Complaint: Shortness of Breath Stated Complaint: Chest Pain, SOB Time Seen by Provider: 08/01/21 02:20 Source: patient, RN notes reviewed Mode of arrival: wheelchair Limitations: no limitations - History of Present Illness Initial Comments: This is a pleasant 81-year-old female presents complaining of a full feeling in her mid and upper abdomen as well as a feeling of shortness of breath. Patient states that this has been present for several weeks. Patient states sexually getting worse. Patient scheduled for an EGD by Dr. Ravi in the morning but states that the symptoms became worse last night and yesterday. Patient also complains some shortness of breath secondary to the symptoms. No headache, no fever or chills, no changes in vision or hearing, no sore throat or difficulty with speech, no neck pain, no chest pain, no nausea or vomiting, no changes in urination or bowel movements, no numbness or tingling, no extremity pain, no skin rashes or lesions. - Related Data Home Medications Medication Instructions Recorded Confirmed Rivaroxaban [Xarelto] 20 mg PO DAILY 12/31/18 07/27/21 Losartan Potassium [Cozaar] 50 mg PO BID 02/27/19 07/27/21 nadoloL [Corgard] 20 mg PO BID 12/21/20 07/27/21 Bimatoprost [Lumigan .01% Ophth 1 drop RIGHT EYE HS 07/27/21 07/27/21 Soln] Cranberry (Unknown Dose) 1 tab PO DAILY 07/27/21 Flecainide Acetate [Tambocor] 150 mg PO BID 07/27/21 07/27/21 Multivit with Calcium,Iron,Min 1 each PO DAILY 07/27/21 07/27/21 [Women's Multivitamin] Omeprazole [PriLOSEC] 20 mg PO AC-BRKFST 07/27/21 07/27/21 Allergies Allergy/AdvReac Type Severity Reaction Status Date / Time etodolac [From [facility]] Allergy Rash/Hives Verified 08/01/21 02:10 Review of Systems ROS Statement: Those systems with pertinent positive or pertinent negative responses have been documented in the HPI. ROS Other: All systems not noted in ROS Statement are negative. Past Medical History Past Medical History: Atrial Fibrillation, Cancer, Eye Disorder, GERD/Reflux, Hypertension, Rheumatoid Arthritis (RA) Additional Past Medical History / Comment(s): pacemaker., skin cancer, chronic back pain/herniated/hairline fractures/osteoporosis, legs weak with ambulation, several UTI's last year. glaucoma right eye., states recent visit to roof fitter and was told her spine is collapsing and she has lost 30% of her lung capacity, sob with activity., dysphagia. History of Any Multi-Drug Resistant Organisms: None Reported Past Surgical History: Back Surgery, Cardiac Ablation, Cholecystectomy, Pacemake r Additional Past Surgical History / Comment(s): 2019 cardiac ablation, 2016 pacemaker., kyphoplasty, colonoscopy, skin cancer removal, bilateral cataract removal/lens implants. EGD. Past Anesthesia/Blood Transfusion Reactions: No Reported Reaction Additional Past Anesthesia/Blood Transfusion Reaction / Comment(s): Pt has clausterphobia. Type of Cardiac Device: Permanent Pacemaker Device Placement Date:: 2015 Past Psychological History: No Psychological Hx Reported Smoking Status: Never smoker Past Alcohol Use History: Rare Past Drug Use History: None Reported - Past Family History Mother Family Medical History: CVA/TIA Additional Family Medical History / Comment(s): BLOOD CLOT IN THE BRAIN, AT AGE 61. Daughter(s) Family Medical History: Cancer Additional Family Medical History / Comment(s): MELANOMA & SQUAMOUS CELL CANCER Father Family Medical History: Respiratory Disorder Additional Family Medical History / Comment(s): Father of black lung. He work in the [employer]. General Exam - General Exam Comments Initial Comments: Patient does not appear to be ill or toxic. Appears to be in some distress. Vital signs are stable, patient is afebrile. Appears to be somewhat pale in appearance. Limitations: no limitations General appearance: alert, in distress Head exam: Present: atraumatic, normocephalic, normal inspection Eye exam: Present: normal appearance, PERRL, EOMI. Absent: scleral icterus, conjunctival injection, periorbital swelling ENT exam: Present: normal exam, mucous membranes moist Neck exam: Present: normal inspection. Absent: tenderness, meningismus, lymphadenopathy Respiratory exam: Present: normal lung sounds bilaterally. Absent: respiratory distress, wheezes, rales, rhonchi, stridor Cardiovascular Exam: Present: regular rate, normal rhythm, normal heart sounds. Absent: systolic murmur, diastolic murmur, rubs, gallop, clicks GI/Abdominal exam: Present: soft, normal bowel sounds. Absent: distended, tenderness, guarding, rebound, rigid Extremities exam: Present: normal inspection, full ROM, normal capillary refill. Absent: tenderness, pedal edema, joint swelling, calf tenderness Back exam: Present: normal inspection Neurological exam: Present: alert, oriented X3, CN II-XII intact Psychiatric exam: Present: normal affect, normal mood Skin exam: Present: warm, dry, intact, normal color. Absent: rash Course Vital Signs 08/01/21 02:11 Temperature 97.9 F Pulse Rate 61 Respiratory 22 Rate Blood Pressure 128/84 O2 Sat by Pulse 97 Oximetry - Reevaluation(s) Reevaluation #1: 08/01/21 04:41 Patient reevaluated and states she is somewhat improved. Patient still has some symptoms. This case was discussed with the attending physician. Medical Decision Making - Medical Decision Making Patient presents with abdominal fullness which is not tender to palpation. Patient states that this quite severe. Patient also states she has some shor tness of breath. Patient has a history of atrial fibrillation and has had problems with this abdominal pain going on for several weeks, worse over the past 2 days. Scheduled for an EGD tomorrow morning. Differential includes cardiac disease, pancreatitis, gallbladder disease, peptic ulcer disease, the patient's nontender, ischemic bowel is within the differential. Lites acid ordered. The case was discussed in detail with ED attending physician. Presentation, findings, treatment plan discussed in detail. We'll try the patient on a H2 maninder. Patient has been on a proton pump inhibitor and has an appointment 8:[address] Ravi for an EGD. We will hav e her proceed to this appointment. Patient told to return here immediately if any symptoms worsen or problems arise. Patient's chest x-ray shows increased vascular markings consistent with mild congestive heart failure which patient has no history of. CT abdomen showed no significant pathology. Patient did have a mild bump in her liver enzymes. Patient be admitted for further evaluation. - Lab Data Result diagrams: 08/01/21 02:52 08/01/21 02:52 Lab Results 08/01/21 08/01/21 08/01/21 Range/Units 02:52 02:52 02:52 WBC 6.9 (3.8-10.6) k/uL RBC 4.24 (3.80-5.40) m/uL Hgb 12.7 (11.4-16.0) gm/dL Hct 39.5 (34.0-46.0) % MCV 93.1 (80.0-100.0) fL MCH 29.9 (25.0-35.0) pg MCHC 32.1 (31.0-37.0) g/dL RDW 14.2 (11.5-15.5) % Plt Count 219 (150-450) k/uL MPV 7.4 Neutrophils % 69 % Lymphocytes % 22 % Monocytes % 5 % Eosinophils % 2 % Basophils % 0 % Neutrophils # 4.8 (1.3-7.7) k/uL Lymphocytes # 1.5 (1.0-4.8) k/uL Monocytes # 0.3 (0-1.0) k/uL Eosinophils # 0.1 (0-0.7) k/uL Basophils # 0.0 (0-0.2) k/uL PT (9.0-12.0) sec INR (<1.2) APTT (22.0-30.0) sec Sodium 126 L (137-145) mmol/L Potassium 4.5 (3.5-5.1) mmol/L Chloride 95 L (98-107) mmol/L Carbon Dioxide 19 L (22-30) mmol/L Anion Gap 12 mmol/L BUN 24 H (7-17) mg/dL Creatinine 0.82 (0.52-1.04) mg/dL Est GFR (CKD-EPI)AfAm 78 (>60 ml/min/1.73 sqM) Est GFR (CKD-EPI)NonAf 67 (>60 ml/min/1.73 sqM) Glucose 169 H (74-99) mg/dL Plasma Lactic Acid Ben (0.7-2.0) mmol/L Calcium 9.4 (8.4-10.2) mg/dL Total Bilirubin 0.6 (0.2-1.3) mg/dL AST 122 H (14-36) U/L ALT 105 H (4-34) U/L Alkaline Phosphatase 97 (38-126) U/L Troponin I <0.012 (0.000-0.034) ng/mL Total Protein 6.8 (6.3-8.2) g/dL Albumin 4.2 (3.5-5.0) g/dL Lipase 126 (23-300) U/L Coronavirus (PCR) (Not Detectd) 08/01/21 08/01/21 08/01/21 Range/Units 02:52 02:52 03:08 WBC (3.8-10.6) k/uL RBC (3.80-5.40) m/uL Hgb (11.4-16.0) gm/dL Hct (34.0-46.0) % MCV (80.0-100.0) fL MCH (25.0-35.0) pg MCHC (31.0-37.0) g/dL RDW (11.5-15.5) % Plt Count (150-450) k/uL MPV Neutrophils % % Lymphocytes % % Monocytes % % Eosinophils % % Basophils % % Neutrophils # (1.3-7.7) k/uL Lymphocytes # (1.0-4.8) k/uL Monocytes # (0-1.0) k/uL Eosinophils # (0-0.7) k/uL Basophils # (0-0.2) k/uL PT 11.7 (9.0-12.0) sec INR 1.1 (<1.2) APTT 22.1 (22.0-30.0) sec Sodium (137-145) mmol/L Potassium (3.5-5.1) mmol/L Chloride (98-107) mmol/L Carbon Dioxide (22-30) mmol/L Anion Gap mmol/L BUN (7-17) mg/dL Creatinine (0.52-1.04) mg/dL Est GFR (CKD-EPI)AfAm (>60 ml/min/1.73 sqM) Est GFR (CKD-EPI)NonAf (>60 ml/min/1.73 sqM) Glucose (74-99) mg/dL Plasma Lactic Acid Ben 1.9 (0.7-2.0) mmol/L Calcium (8.4-10.2) mg/dL Total Bilirubin (0.2-1.3) mg/dL AST (14-36) U/L ALT (4-34) U/L Alkaline Phosphatase (38-126) U/L Troponin I (0.000-0.034) ng/mL Total Protein (6.3-8.2) g/dL Albumin (3.5-5.0) g/dL Lipase (23-300) U/L Coronavirus (PCR) Not Detected (Not Detectd) - EKG Data EKG Comments: EKG reveals sinus rhythm with first-degree AV block. Nonspecific ST and T wave abnormalities, mainly T wave inversions in V3 through V6. T-wave is inverted in lead 3. This was compared to previous study from December 2020. Similar appearance. Her intervals 360 ms. Remainder of the intervals are normal. Reviewed by the ED attending physician. Disposition Clinical Impression: Abdominal pain, Shortness of breath, Congestive heart failure Disposition: ADMITTED IP TO THIS [facility] Condition: Stable Referrals: Madhu Milner MD [Primary Care Provider] - 1-2 days
[2021-08-01] MEDS ORDERED: ONDANSETRON 4 MG/2 ML VIAL IVP STA (02:46)
[2021-08-01] MEDS ORDERED: MORPHINE SULFATE 4 MG/ML SYRINGE IV STA (02:46)
[2021-08-01 03:03] LABS: Basophils % (A) 0 %; Eosinophils # (A) 0.1 k/uL (0-0.7); Eosinophils % (A) 2 %; HCT 39.5 % (34.0-46.0); HGB 12.7 gm/dL (11.4-16.0); Lymphocytes # (A) 1.5 k/uL (1.0-4.8); Lymphocytes % (A) 22 %; MCH 29.9 pg (25.0-35.0); MCHC 32.1 g/dL (31.0-37.0); MCV 93.1 fL (80.0-100.0); Mean Platelet Volume 7.4; Monocytes # (A) 0.3 k/uL (0-1.0); Monocytes % (A) 5 %; Neutrophils # (A) 4.8 k/uL (1.3-7.7); Neutrophils % (A) 69 %; Platelet Count 219 k/uL (150-450); RBC 4.24 m/uL (3.80-5.40); RDW 14.2 % (11.5-15.5); WBC 6.9 k/uL (3.8-10.6)
[2021-08-01 03:21] LABS: Albumin 4.2 g/dL (3.5-5.0); Calcium 9.4 mg/dL (8.4-10.2); Potassium 4.5 mmol/L (3.5-5.1); Total Bilirubin 0.6 mg/dL (0.2-1.3); Total Protein 6.8 g/dL (6.3-8.2)
[2021-08-01 03:30] LABS: INR 1.1 (<1.2); Partial Thromboplastin Time 22.1 sec (22.0-30.0); Prothrombin Time 11.7 sec (9.0-12.0)
--- NOTE | 2021-08-01 03:33 | XR ---
EXAMINATION TYPE: XR chest 1V portable DATE OF EXAM: 08/01/2021 COMPARISON: 06/09/2021 HISTORY: Short of breath. Abdominal pain. TECHNIQUE: FINDINGS: Heart appears enlarged. There is some pulmonary mild vascular congestion. There is left axi llary pacemaker. There is mild pulmonary interstitial edema. There is thoracic vertebroplasty. IMPRESSION: Mild pulmonary interstitial edema appears new compared to old exam and is probably mild h eart failure.
--- NOTE | 2021-08-01 03:35 | XR ---
EXAMINATION TYPE: XR abdomen 2V DATE OF EXAM: 08/01/2021 COMPARISON: NONE HISTORY: Abdominal pain TECHNIQUE: 4 views FINDINGS: Supine and upright views show no sign of intestinal obstruction or pneumoperitoneum. Fecal pattern is normal. There is no evidence of a mass. There is mild lumbar levoscoliosis. There are clip s from cholecystectomy. There are no calcifications over the kidneys. IMPRESSION: Nonacute abdomen.
--- NOTE | 2021-08-01 04:32 | CT ---
EXAMINATION TYPE: CT abdomen pelvis w con DATE OF EXAM: 08/01/2021 COMPARISON: None HISTORY: upper abd pain CT DLP: 1611.7 mGycm Automated exposure control for dose reduction was used. CONTRAST: Performed with IV Contrast, patient injected with 100 mL of Isovue 300. Images obtained from the diaphragm to the floor the pelvis with IV contrast Isovue 100 mL. FINDINGS: There is mild subsegmental atelectasis at the lung bases. There is mild increased interstitial densit y. There is small right pleural effusion. Heart is enlarged. There is no pericardial effusion. There are clips from cholecystectomy. Liver and spleen are intact. The bile ducts are not dilated. There is no pancreatic mass. The stomach is intact. There is no adrenal mass. Kidneys show satisfactory contrast opacification. There is no hydronephrosi s. Ureters are not dilated. The appendix is posterior and appears normal. The bladder distends smooth ly. There is no inguinal hernia. Uterus is anteverted. There are multiple sigmoid diverticula. There is no diverticulitis. There is no evidence of a pelvic mass. There is no mesenteric edema. There is no ascites or free air. There is no bowel obstruction. The lum bar vertebra have fairly normal alignment. There is a slight lumbar levoscoliosis. There is mild wedg ing of T11 vertebral body 20%. Fracture appears old. Delayed images show normal renal excretion. IMPRESSION: There is moderate sigmoid diverticulosis without diverticulitis. Normal appendix. No acute abnormalit y of the abdomen and pelvis. Mild interstitial infiltrates and atelectasis at the lung bases and smal l right pleural effusion.
[2021-08-01] MEDS ORDERED: FAMOTIDINE 20 MG/2 ML VIAL IV STA (04:40)
[2021-08-01] MEDS ORDERED: FUROSEMIDE 10 MG/ML 2 ML VIAL IV ONE (04:43)
--- NOTE | 2021-08-01 09:54 | ECHOF ---
Referral Reason: MEASUREMENTS -------- HEIGHT: 172.7 cm WEIGHT: 90.7 kg BP: RVIDd: 3.7 cm (< 3.3) IVSd: 1.0 cm (0.6 - 1.1) LVIDd: 4.7 cm (3.9 - 5.3) LVPWd: 1.3 cm (0.6 - 1.1) IVSs: 1.5 cm LVIDs: 2.5 cm LVPWs: 2.1 cm Ao Diam: 3.4 cm (2.0 - 3.7) AV Cusp: 1.3 cm (1.5 - 2.6) LA Diam: 4.8 cm (2.7 - 3.8) MV EXCURSION: 17.310 mm (> 18.000) MV EF SLOPE: 125 mm/s (70 - 150) EPSS: 0.6 cm MV E Andrés: 0.82 m/s MV DecT: 178 ms MV A Andrés: 0.24 m/s MV E/A Ratio: 3.42 AR PHT: 342 ms RAP: 5.00 mmHg RVSP: 44.11 mmHg FINDINGS -------- Pacerwire seen in RV and RA. This was a technically difficult study with suboptimal views. The left ventricular size is normal. There is mild concentric left ventricular hypertrophy. Overa ll left ventricular systolic function is mildly impaired with, an EF between 45 - 50 %. Apical sept um LV wall motion is hypokinetic. The right ventricle is mildly enlarged. The left atrial size is normal. The right atrial size is normal. Lumason used The aortic valve is trileaflet and appears structurally normal. There is mild aortic regurgitation. The mitral valve is normal. Mild mitral regurgitation is present. The tricuspid valve appears structurally normal. Severe tricuspid regurgitation present. There is mild pulmonary hypertension. The right ventricular systolic pressure, as measured by Doppler, is 4 4.11mmHg. Trace/mild (physiologic) pulmonic regurgitation. The aortic root size is normal. IVC Not well visulized. There is no pericardial effusion. CONCLUSIONS -------- 1. Pacerwire seen in RV and RA. 2. The left ventricular size is normal. 3. There is mild concentric left ventricular hypertrophy. 4. Overall left ventricular systolic function is mildly impaired with, an EF between 45 - 50 %. 5. Apical septum LV wall motion is hypokinetic. 6. The right ventricle is mildly enlarged. 7. There is mild aortic regurgitation. 8. Mild mitral regurgitation is present. 9. Severe tricuspid regurgitation present. 10. There is mild pulmonary hypertension. 11. The right ventricular systolic pressure, as measured by Doppler, is 44.11mmHg. 12. Trace/mild (physiologic) pulmonic regurgitation. 13. There is no pericardial effusion. LICENSED CERTIFIED ORTHOTIST: Greta Adams RDCS
[2021-08-01] MEDS: FLECAINIDE 50 MG TAB PO SCH ×2 (12:19→21:11)
[2021-08-01] MEDS: LOSARTAN 50 MG TAB PO SCH ×2 (12:20→21:11)
--- NOTE | 2021-08-01 13:43 | P.CONS ---
History of Present Illness - Reason for Consult Consult date: 08/01/21 Abdominal pain Requesting physician: Tawny Young - Chief Complaint Shortness of breath - History of Present Illness This is an 81-year-old female who presented to the emergency department with complaints of shortness of breath. He has a past medical history of atrial fi brillation, GERD, hypertension, rheumatoid arthritis, and skin cancer. The patient actually had an appointment scheduled for an EGD today with Dr. Ravi however was having significant shortness of breath so came to the emergency department for further evaluation. The patient was found to have congestive heart failure on admission and was given Lasix. She is on oxygen. She does have complaints of feeling full and some difficulty with swallowing solid food such as breads and meats. She denies it getting stuck to the point that she has any vomiting. She did have an x-ray of the abdomen that showed a nonacute abdomen. CT of the abdomen and pelvis that showed sigmoid diverticulosis otherwise normal with normal findings. Labs were unremarkable. Review of Systems REVIEW OF SYSTEMS: CARDIOPULMONARY: No chest pain. Shortness of breath. Gastrointestinal: No abdominal pain. A full feeling with some difficulty swallowing solids. No nausea or vomiting. No hematemesis, coffee-ground emesis. No rectal bleeding, or melena. GENITOURINARY: No dysuria or hematuria. MUSCULOSKELETAL: Reports normal range of motion., Joint pain. SKIN: No rashes. No jaundice. ENDOCRINE: No chills, fevers. No excessive weight gain or loss. No polydipsia or polyuria. PSYCHIATRIC: Unremarkable. NEUROLOGY: No change in mental status. Denies dizziness, headache. ENT: Vision unremarkable. CONSTITUTIONAL: No recent weight loss. No fever, chills, night sweats. Past Medical History Past Medical History: Atrial Fibrillation, Cancer, Eye Disorder, GERD/Reflux, Hypertension, Rheumatoid Arthritis (RA) Additional Past Medical History / Comment(s): pacemaker., skin cancer, chronic back pain/herniated/hairline fractures/osteoporosis, legs weak with ambulation, several UTI's last year. glaucoma right eye., states recent visit to tankman and was told her spine is collapsing and she has lost 30% of her lung capacity, sob with activity., dysphagia. History of Any Multi-Drug Resistant Organisms: None Reported Past Surgical History: Back Surgery, Cardiac Ablation, Cholecystectomy, Pacemaker Additional Past Surgical History / Comment(s): 2019 cardiac ablation, 2016 pacemaker., kyphoplasty, colonoscopy, skin cancer removal, bilateral cataract removal/lens implants. EGD. Past Anesthesia/Blood Transfusion Reactions: No Reported Reaction Additional Past Anesthesia/Blood Transfusion Reaction / Comm: Pt has clausterphobia. Type of Cardiac Device: Permanent Pacemaker Device Placement Date:: 2015 Past Psychological History: No Psychological Hx Reported Smoking Status: Never smoker Past Alcohol Use History: Rare Past Drug Use History: None Reported - Past Family History Mother Family Medical History: CVA/TIA Additional Family Medical History / Comment(s): BLOOD CLOT IN THE BRAIN, AT AGE 61. Daughter(s) Family Medical History: Cancer Additional Family Medical History / Comment(s): MELANOMA & SQUAMOUS CELL CANCER Father Family Medical History: Respiratory Disorder Additional Family Medical History / Comment(s): Father of black lung. He work in the [employer]. Medications and Allergies Home Medications Medication Instructions Recorded Confirmed Type Rivaroxaban [Xarelto] 20 mg PO DAILY 12/31/18 08/01/21 History Losartan Potassium [Cozaar] 50 mg PO BID 02/27/19 08/01/21 History nadoloL [Corgard] 20 mg PO BID 12/21/20 08/01/21 History Bimatoprost [Lumigan .01% Ophth 1 drop RIGHT EYE HS 07/27/21 08/01/21 History Soln] Flecainide Acetate [Tambocor] 150 mg PO BID 07/27/21 08/01/21 History Multivit with Calcium,Iron,Min 1 tab PO DAILY 07/27/21 08/01/21 History [Women's Multivitamin] Omeprazole [PriLOSEC] 20 mg PO AC-BRKFST 07/27/21 08/01/21 History Calcium Carbonate [Calcium] 600 mg PO DAILY 08/01/21 08/01/21 History Cranberry Fruit Extract [Cranberry] 200 mg PO DAILY 08/01/21 08/01/21 History Allergies Allergy/AdvReac Type Severity Reaction Status Date / Time etodolac [From [facility]] Allergy Rash/Hives Verified 08/01/21 08:16 Physical Exam Vitals: Vital Signs Temp Pulse Resp BP Pulse Ox 08/01/21 04:46 60 16 141/67 96 08/01/21 02:11 97.9 F 61 22 128/84 97 Intake and Output 07/31/21 08/01/21 08/01/21 22:59 06:59 14:59 Other: Weight 90.718 kg General appearance: The patient is alert, oriented, appears in no acute distress. HET: Head is normocephalic and atraumatic. Conjunctiva pink. Sclera anicteric. Neck: Supple without lymphadenopathy. Trachea midline. Heart: S1 S2. Regular rate and rhythm. Lungs: Clear to auscultation. Abdomen: Soft, nontender, nondistended with bowel sounds. No guarding or rigidity. Skin: No rashes. No jaundice. Extremities: Normal skin color and turgor. Lower extremity edema. Neurological: No focal deficits. Alert and oriented x3. Results CBC & Chem 7: 08/01/21 02:52 08/01/21 02:52 Labs: Abnormal Lab Results - Last 24 Hours (Table) 08/01/21 Range/Units 02:52 Sodium 126 L (137-145) mmol/L Chloride 95 L (98-107) mmol/L Carbon Dioxide 19 L (22-30) mmol/L BUN 24 H (7-17) mg/dL Glucose 169 H (74-99) mg/dL AST 122 H (14-36) U/L ALT 105 H (4-34) U/L CT scan - abdomen: report reviewed (Abdomen and pelvis. Mild interstitial infiltrates and atelectasis at the lung base and small right pleural effusion.) Assessment and Plan (1) Abdominal pain Narrative/Plan: 81-year-old female who presented to the emergency department with complaints of shortness of breath and increased exertional dyspnea. Patient was scheduled today to have the EGD done with Dr. Ravi for abdominal fullness as well as dysphagia. Patient states she is not having any abdominal pain at this time she actually came in only for shortness of breath. She denies any nausea or vomiting. Most of her difficulty with swallowing as well as solid foods such as bread or meats. However she states she does not have any vomiting related to it or choking. No plans for endoscopic evaluation at this time. Will reschedule for outpatient 1-2 weeks. Current Visit: Yes Status: Acute Code(s): R10.9 - UNSPECIFIED ABDOMINAL PAIN SNOMED Code(s): 31706587 (2) Dysphagia Current Visit: Yes Status: Acute Code(s): R13.10 - DYSPHAGIA, UNSPECIFIED SNOMED Code(s): 91086964 (3) Congestive heart failure Narrative/Plan: Cardiology following Current Visit: Yes Status: Acute Code(s): I50.9 - HEART FAILURE, UNSPECIFIED SNOMED Code(s): 36634289 Plan: 1. Continue symptomatic and supportive care 2. Diet as tolerated 3. Protonix 40 mg daily 4. Continue workup per cardiology 5. No plans on endoscopic evaluation. Will reschedule outpatient in 1-2 weeks. Thank you for this consultation, we will continue to follow. Dr. Gustavo Ravi I agree with the dictator's note, documented as a scribe by Jenni Augustin.
--- NOTE | 2021-08-01 15:41 | P.HPIM ---
History of Present Illness H&P Date: 08/01/21 HISTORY OF PRESENT ILLNESS This is an 81-year-old female patient of Dr. Milner and Dr. Falk with past medical history of paroxysmal atrial fibrillation status post ablation, tachybradycardia syndrome status post permanent pacemaker, hypertension, gastroesophageal reflux disease, rheumatoid arthritis, osteoporosis, glaucoma she is status post cardiac ablation with Dr. Cordon. Patient states that she saw Dr. Falk last week and he increased her flecainide 250 mg twice daily with plan to follow up appointment with Dr. Mccollum to discuss options regarding atrial fibrillation. Patient complains of shortness of breath for the past 2 weeks, no lower extremity edema but fullness in her abdomen. Increased shortness of breath with any activity. She denies any other change in her home medications. She states she does eat a lot of soups but they're homemade. Patient normally rides a recumbent bike until last week. Her last stress test was in December. Patient had a sleep study done 2 years ago which was negative. She denies any recent weight changes. Chest x-ray reveals mild pulmonary interstitial edema appears new. Probably mild heart failure. CAT scan of the pelvis with contrast revealed moderate sigmoid diverticulosis without diverticulitis. Normal appendix. No acute abnormality of the abdomen and pelvis. Mild interstitial infiltrates and atelectasis at the lung base and small right pleural effusion. Echocardiogram reveals EF of 45-50% with mild concentric left ventricular hypertrophy, mild aortic regurgitation, mild mitral regurgitation, severe tricuspid regurgitation, mild pulmonary hypertension. Patient is seen in the emergency center waiting for a bed on the [facility] floor. Consult added for cardiology. Patient has been seen by GI for abdominal full ness and EGD scheduled as outpatient will be rescheduled in the next 1-2 weeks. REVIEW OF SYSTEMS Constitutional: No fever, no chills, no night sweats. No weight change. No weakness, fatigue or lethargy. No daytime sleepiness. EENT: No headache. No blurred vision or double vision, no loss of vision. No loss of Hearing, no ringing in the ears, no dizziness. No nasal drainage or congestion. No epistaxis. No sore throat. Lungs: Reports shortness of breath, cough, no sputum production. No wheezing. Reports dyspnea with exertion. Cardiovascular: No chest pain, no lower extremity edema. No palpitations. No paroxysmal nocturnal dyspnea. No orthopnea. No lightheadedness or dizziness. No syncopal episodes. Abdominal: No abdominal pain. No nausea, vomiting. No diarrhea. No constip ation. No bloody or tarry stools. No loss of appetite. Genitourinary: No dysuria, increased frequency, urgency. No urinary retention. Musculoskeletal: No myalgias. No muscle weakness, no gait dysfunction, no frequent falls. No back pain. No neck pain. Integumentary: No wounds, no lesions. No rash or pruritus. No unusual bruising. No change in hair or nails. Neurologic: No aphasia. No facial droop. No change in mentation. No head injury. No headache. No paralysis. No paresthesia. Psychiatric: No depression. No anxiety. No mood swings. Endocrine: No abnormal blood sugars. No weight change. No excessive sweating or thirst. No cold intolerance. SOCIAL HISTORY Patient is a lifelong nonsmoker, no alcohol use, marijuana use or illicit drug use. She lives with her . She is does not utilize oxygen, nebulizer. FAMILY HISTORY Mother from a CVA at age 61. Father at age 61 from black lung with history of being a coalminer. Patient has 2 brothers and both have history of atrial fibrillation. Patient has one sister with history of CHF. Patient has 2 daughters and 1 son. PHYSICAL EXAMINATION Gen: This is an 81-year-old female. Patient is resting bed appears to be comfortable and in no acute distress. HEENT: Head is atraumatic, normocephalic. Pupils equal, round. Sclerae is anicteric. NECK: Supple. No JVD. No lymphadenopathy. No thyromegaly. LUNGS: Crackles at the bilateral bases. No intercostal retractions. HEART: Regular rate and rhythm. No murmur. ABDOMEN: Soft. Mild abdominal distention. Bowel sounds are present. No masses. No tenderness. EXTREMITIES: No pedal edema. No calf tenderness. NEUROLOGICAL: Patient is awake, alert and oriented x3. Cranial nerves 2 through 12 are grossly intact. ASSESSMENT AND PLAN 1. Acute systolic heart failure. Cardiology consult. A status post 1 dose of IV Lasix in the emergency center, start Lasix 20 mg twice daily. 2. Paroxysmal atrial fibrillation atrial fibrillation. Continue flecainide 150 mg twice daily, nadolol 20 mg twice daily, Xarelto 20 mg daily. 3. History of tachybradycardia syndrome status post permanent pacemaker. 4. Hypertension. Continue losartan 50 mg twice daily. 5. Gastroesophageal reflux disease. Continue Protonix 40 mg daily. Patient's been seen by GI with plan for EGD in one to 2 weeks as an outpatient. 6. History of rheumatoid arthritis. 7. COVID-19 testing negative. Patient has been hospitalized during a pandemic. Patient will be admitted to the hospital for a minimum of 2 night stay. DISCHARGE PLAN most likely return home. Impression and plan of care have been directed as dictated by the signing physician. Mirna Appiah nurse practitioner acting as scribe for signing physician. Past Medical History Past Medical History: Atrial Fibrillation, Cancer, Eye Disorder, GERD/Reflux, Hypertension, Rheumatoid Arthritis (RA) Additional Past Medical History / Comment(s): pacemaker., skin cancer, chronic back pain/herniated/hairline fractures/osteoporosis, legs weak with ambulation, several UTI's last year. glaucoma right eye., states recent visit to center hole reamer and was told her spine is collapsing and she has lost 30% of her lung capacity, sob with activity., dysphagia. History of Any Multi-Drug Resistant Organisms: None Reported Past Surgical History: Back Surgery, Cardiac Ablation, Cholecystectomy, Pacema ker Additional Past Surgical History / Comment(s): 2019 cardiac ablation, 2016 pacemaker., kyphoplasty, colonoscopy, skin cancer removal, bilateral cataract removal/lens implants. EGD. Past Anesthesia/Blood Transfusion Reactions: No Reported Reaction Additional Past Anesthesia/Blood Transfusion Reaction / Comment(s): Pt has clausterphobia. Type of Cardiac Device: Permanent Pacemaker Device Placement Date:: 2015 Past Psychological History: No Psychological Hx Reported Smoking Status: Never smoker Past Alcohol Use History: Rare Past Drug Use History: None Reported - Past Family History Mother Family Medical History: CVA/TIA Additional Family Medical History / Comment(s): BLOOD CLOT IN THE BRAIN, AT AGE 61. Daughter(s) Family Medical History: Cancer Additional Family Medical History / Comment(s): MELANOMA & SQUAMOUS CELL CANCER Father Family Medical History: Respiratory Disorder Additional Family Medical History / Comment(s): Father of black lung. He work in the [employer]. Medications and Allergies Home Medications Medication Instructions Recorded Confirmed Type Rivaroxaban [Xarelto] 20 mg PO DAILY 12/31/18 08/01/21 History Losartan Potassium [Cozaar] 50 mg PO BID 02/27/19 08/01/21 History nadoloL [Corgard] 20 mg PO BID 12/21/20 08/01/21 History Bimatoprost [Lumigan .01% Ophth 1 drop RIGHT EYE HS 07/27/21 08/01/21 History Soln] Flecainide Acetate [Tambocor] 150 mg PO BID 07/27/21 08/01/21 History Multivit with Calcium,Iron,Min 1 tab PO DAILY 07/27/21 08/01/21 History [Women's Multivitamin] Omeprazole [PriLOSEC] 20 mg PO AC-BRKFST 07/27/21 08/01/21 History Calcium Carbonate [Calcium] 600 mg PO DAILY 08/01/21 08/01/21 History Cranberry Fruit Extract [Cranberry] 200 mg PO DAILY 08/01/21 08/01/21 History Allergies Allergy/AdvReac Type Severity Reaction Status Date / Time etodolac [From [facility]] Allergy Rash/Hives Verified 08/01/21 08:16 Physical Exam Vitals: Vital Signs Temp Pulse Resp BP Pulse Ox 08/01/21 10:00 98.7 F 60 18 130/81 99 08/01/21 08:00 63 18 129/64 99 08/01/21 04:46 60 16 141/67 96 08/01/21 02:11 97.9 F 61 22 128/84 97 Intake and Output 07/31/21 08/01/21 08/01/21 22:59 06:59 14:59 Other: Weight 90.718 kg Results CBC & Chem 7: 08/01/21 02:52 08/01/21 02:52 Labs: Abnormal Lab Results - Last 24 Hours (Table) 08/01/21 Range/Units 02:52 Sodium 126 L (137-145) mmol/L Chloride 95 L (98-107) mmol/L Carbon Dioxide 19 L (22-30) mmol/L BUN 24 H (7-17) mg/dL Glucose 169 H (74-99) mg/dL AST 122 H (14-36) U/L ALT 105 H (4-34) U/L
[2021-08-01] MEDS: FUROSEMIDE 10 MG/ML 2 ML VIAL IV SCH (21:15)
[2021-08-02] MEDS: LATANOPROST 0.005% OPHTH DROPS 2.5 ML BTL RIGHT EYE SCH ×2 (00:07→20:35)
[2021-08-02] MEDS ORDERED: NON FORMULARY DRUG (Omeprazole 20 MG Capsule) PO SCH (07:30)
[2021-08-02] MEDS: FUROSEMIDE 10 MG/ML 2 ML VIAL IV SCH ×2 (09:58→17:57)
[2021-08-02] MEDS: PANTOPRAZOLE 40 MG TABLET PO SCH (09:58)
[2021-08-02] MEDS: CALCIUM CARBONATE 500 MG CHEWABLE PO SCH (09:58)
[2021-08-02] MEDS: LOSARTAN 50 MG TAB PO SCH ×2 (09:59→20:33)
[2021-08-02] MEDS: RIVAROXABAN 20 MG TAB PO SCH (09:59)
[2021-08-02] MEDS: FLECAINIDE 50 MG TAB PO SCH ×2 (09:59→20:32)
--- NOTE | 2021-08-02 10:58 | P.CRDCN ---
History of Present Illness Consult date: 08/02/21 History of present illness: HISTORY OF PRESENT ILLNESS: This is a 81 year old female with a past medical history significant for paroxysmal atrial fibrillation, hypertension, GERD, and rheumatoid arthritis. Patient follows in the office with Dr. Falk. We have been asked to see the patient in consultation for congestive heart failure. Patient examined at the bedside. Patient states she presented to the emergency room secondary to shortness of breath. She recently saw her fire official and her flecainide dose was increased to 150 mg twice a day. She does think her shortness of breath began after her dose was increased. The patient was also found to be in acute mild heart failure. She was started on IV Lasix. The patient does report some lower extremity edema. She states her shortness of breath has improved since coming to the hospital. She denies chest pain or pressure. EKG reveals sinus mechanism with T-wave inversions in inferior, anterior, and lateral leads. Similar to previous EKG Chest xray mild pulmonary interstitial edema appears new compared to old exam. probably mild heart failure. Laboratory data: WBC 6.9. Hemoglobin 12.7. Platelet count 219. Sodium 126 Current home cardiac medications include Xarelto 20 mg daily, nadolol 20 mg twice a day, losartan 50 daily grams twice a day, flecainide 150 mg twice a day Echocardiogram completed revealed ejection fraction 45-50%, mild aortic regurgitation, mild mitral regurg irritation, severe tricuspid regurgitation, and mild pulmonary hypertension REVIEW OF SYSTEMS: At the time of my exam: CONSTITUTIONAL: Denies fever or chills. HEENT: Denies blurred vision, vision changes, or eye pain. Denies hemoptysis CARDIOVASCULAR: Denies chest pain. Denies orthopnea. Denies PND. Denies palpitations RESPIRATORY: + shortness of breath. GASTROINTESTINAL: Denies abdominal pain. Denies nausea or vomiting. HEMATOLOGIC: Denies bleeding disorders. GENITOURINARY: Denies any blood in urine. SKIN: Denies pruitis. Denies rash. PHYSICAL EXAM: VITAL SIGNS: Reviewed. GENERAL: Well-developed in no acute distress. HEENT: Head is normocephalic. Pupils are equal, round. Sclerae anicteric. Mucous membranes of the mouth are moist. Neck supple. No JVD or thyromegaly LUNGS: Respirations even and unlabored. Lungs diminished to auscultation bilaterally. HEART: Regular rate and rhythm. S1 and S2 heard. ABDOMEN: Soft. Nondistended. Nontender. EXTREMITIES: Normal range of motion. No clubbing or cyanosis. Peripheral pulses intact. Bilateral lower extremity edema NEUROLOGIC: Awake and alert. Oriented x 3. ASSESSMENT: Shortness of breath Acute mild diastolic heart failure Paroxysmal atrial fibrillation, anticoagulated with Xarelto Hypertension GERD Rheumatoid arthritis Elevated d-dimer Elevated LFTs PLAN: Continue current cardiac medications Continue IV Lasix. Possible transition to oral dosing tomorrow Decrease flecainide to 100 mg twice a day Obtain chest CTA to rule out PE Further recommendations patient course Nurse practitioner note has been reviewed by physician. Signing provider agrees with the documented findings, assessment, and plan of care. Past Medical History Past Medical History: Atrial Fibrillation, Cancer, Eye Disorder, GERD/Reflux, Hypertension, Rheumatoid Arthritis (RA) Additional Past Medical History / Comment(s): pacemaker., skin cancer, chronic back pain/herniated/hairline fractures/osteoporosis, legs weak with ambulation, several UTI's last year. glaucoma right eye., states recent visit to railway shunter and was told her spine is collapsing and she has lost 30% of her lung capacity, sob with activity., dysphagia. History of Any Multi-Drug Resistant Organisms: None Reported Past Surgical History: Back Surgery, Cardiac Ablation, Cholecystectomy, Pacemaker Additional Past Surgical History / Comment(s): 2019 cardiac ablation, 2016 pacemaker., kyphoplasty, colonoscopy, skin cancer removal, bilateral cataract removal/lens implants. EGD. Past Anesthesia/Blood Transfusion Reactions: No Reported Reaction Additional Past Anesthesia/Blood Transfusion Reaction / Comment(s): Pt has clausterphobia. Type of Cardiac Device: Permanent Pacemaker Device Placement Date:: 2015 Past Psychological History: No Psychological Hx Reported Additional Psychological History / Comment(s): . Smoking Status: Never smoker Past Alcohol Use History: Rare Past Drug Use History: None Reported Additional Drug Use History / Comment(s): CBD TOPICAL ON BACK. - Past Family History Mother Family Medical History: CVA/TIA Additional Family Medical History / Comment(s): BLOOD CLOT IN THE BRAIN, AT AGE 61. Daughter(s) Family Medical History: Cancer Additional Family Medical History / Comment(s): MELANOMA & SQUAMOUS CELL CANCER Father Family Medical History: Respiratory Disorder Additional Family Medical History / Comment(s): Father of black lung. He work in the [employer]. Medications and Allergies Home Medications Medication Instructions Recorded Confirmed Type Rivaroxaban [Xarelto] 20 mg PO DAILY 12/31/18 08/01/21 History Losartan Potassium [Cozaar] 50 mg PO BID 02/27/19 08/01/21 History nadoloL [Corgard] 20 mg PO BID 12/21/20 08/01/21 History Bimatoprost [Lumigan .01% Ophth 1 drop RIGHT EYE HS 07/27/21 08/01/21 History Soln] Flecainide Acetate [Tambocor] 150 mg PO BID 07/27/21 08/01/21 History Multivit with Calcium,Iron,Min 1 tab PO DAILY 07/27/21 08/01/21 History [Women's Multivitamin] Omeprazole [PriLOSEC] 20 mg PO AC-BRKFST 07/27/21 08/01/21 History Calcium Carbonate [Calcium] 600 mg PO DAILY 08/01/21 08/01/21 History Cranberry Fruit Extract [Cranberry] 200 mg PO DAILY 08/01/21 08/01/21 History Allergies Allergy/AdvReac Type Severity Reaction Status Date / Time etodolac [From [facility]] Allergy Rash/Hives Verified 08/01/21 08:16 Physical Exam Vitals: Vital Signs Temp Pulse Pulse Resp BP BP Pulse Ox 08/02/21 07:00 98.4 F 64 18 98/62 94 L 08/02/21 02:18 97.4 F L 60 18 120/79 97 08/02/21 00:14 98.0 F 60 16 147/86 98 08/01/21 21:15 59 L 16 142/75 98 08/01/21 18:00 98.0 F 66 18 120/69 97 08/01/21 16:00 62 18 111/75 94 L 08/01/21 13:54 56 L 18 131/56 95 08/01/21 12:17 62 18 161/58 95 Intake and Output 08/01/21 08/02/21 08/02/21 22:59 06:59 14:59 Intake Total 240 Balance 240 Intake: Oral 240 Other: # Voids 1 1 Weight 90.718 kg Results 08/01/21 02:52 08/01/21 02:52 Current Medications Generic Name Dose Route Start Last Admin Trade Name Opal PRN Reason Stop Dose Admin Calcium Carbonate/Glycine 500 mg 08/02/21 09:00 08/02/21 09:58 Calcium Carbonate 500 Mg Chewable PO 500 mg DAILY ALEX Administration Flecainide Acetate 100 mg 08/02/21 09:00 08/02/21 09:59 Flecainide 50 Mg Tab PO 100 mg BID ALEX Administration Furosemide 20 mg 08/01/21 21:00 08/02/21 09:58 Furosemide 10 Mg/Ml 2 Ml Vial IV 20 mg Q12HR ALEX Administration Latanoprost 1 drops 08/01/21 21:00 08/02/21 00:07 Latanoprost 0.005% Ophth Drops 2.5 Ml Btl RIGHT EYE 1 drops HS ALEX Administration Losartan Potassium 50 mg 08/01/21 11:30 08/02/21 09:59 Losartan 50 Mg Tab PO 50 mg BID ALEX Administration Nadolol 20 mg 08/01/21 12:00 08/02/21 09:59 Nadolol 20 Mg Tab PO 20 mg BID ALEX Administration Pantoprazole Sodium 40 mg 08/02/21 07:30 08/02/21 09:58 Pantoprazole 40 Mg Tablet PO 40 mg AC-BRKFST ALEX Administration Rivaroxaban 20 mg 08/02/21 09:00 08/02/21 09:59 Rivaroxaban 20 Mg Tab PO 20 mg DAILY ALEX Administration Protocol Intake and Output 08/01/21 08/02/21 08/02/21 22:59 06:59 14:59 Intake Total 240 Balance 240 Intake: Oral 240 Other: # Voids 1 1 Weight 90.718 kg 08/01/21 02:52 08/01/21 02:52
[2021-08-02] MEDS: ACETAMINOPHEN TAB 325 MG TAB PO PRN ×2 (11:35→20:33)
[2021-08-02 11:36] LABS: ALT 119 U/L (4-34); AST 84 U/L (14-36); African American GFR (CKD) 90 (>60 ml/min/1.73 sqM); Albumin 4.4 g/dL (3.5-5.0); Albumin/Globulin Ratio 1.6; Alkaline Phosphatase 69 U/L (38-126); Anion Gap 9 mmol/L; Blood Urea Nitrogen 18 mg/dL (7-17); Calcium 9.8 mg/dL (8.4-10.2); Carbon Dioxide 29 mmol/L (22-30); Chloride 98 mmol/L (98-107); Globulin 2.8 g/dL; Glucose 176 mg/dL (74-99); Non-African American GFR(CKD) 78 (>60 ml/min/1.73 sqM); Potassium 4.8 mmol/L (3.5-5.1); Sodium 136 mmol/L (137-145); Total Bilirubin 0.9 mg/dL (0.2-1.3); Total Protein 7.2 g/dL (6.3-8.2)
--- NOTE | 2021-08-02 12:39 | CT ---
EXAMINATION TYPE: CT angio chest DATE OF EXAM: 08/02/2021 12:21 PM COMPARISON: None HISTORY: CHT, PE CT DLP: 576 mGycm Automated exposure control for dose reduction was used. CONTRAST: CTA scan of the thorax is performed without and with IV Contrast, patient injected with 100 ML mL of Isovue 370, pulmonary embolism protocol. . FINDINGS: LUNGS: Groundglass changes are seen bilaterally with subsegmental areas of consolidation bilaterally. Interlobular septal thickening is seen. No pneumothorax. 3 mm subpleural nodule left upper lobe too small to characterize. MEDIASTINUM: There is satisfactory enhancement of the pulmonary artery and its branches, there is no CT evidence for pulmonary embolism. There are no greater than 1 cm hilar or mediastinal lymph nodes. The heart is enlarged and there is coronary artery calcification. Atherosclerotic change aorta. Shot ty adenopathy seen throughout the mediastinum and hilum.. OTHER: Hypertrophic and degenerative changes of the spine. Compression deformities are seen througho ut the thoracic spine with evidence of previous vertebroplasty. There is surgical clips in the gallbl adder fossa. IMPRESSION: 1. COPD with findings of chronic interstitial pulmonary fibrosis. Groundglass changes could been the basis of pneumonitis correlate clinically. 2. No diagnostic evidence of pulmonary embolism. 3. Cardiomegaly with coronary artery calcification. 4. Left upper lobe 3 mm pulmonary nodule subpleural location too small to characterize.
--- NOTE | 2021-08-02 14:00 | P.PN ---
Subjective Progress Note Date: 08/02/21 HISTORY OF PRESENT ILLNESS This is an 81-year-old female patient of Dr. Milner and Dr. Falk with past medical history of paroxysmal atrial fibrillation status post ablation, tachybradycardia syndrome status post permanent pacemaker, hypertension, gastroesophageal reflux disease, rheumatoid arthritis, osteoporosis, glaucoma she is status post cardiac ablation with Dr. Cordon. Patient states that she saw Dr. Falk last week and he increased her flecainide 250 mg twice daily with plan to follow up appointment with Dr. Mccollum to discuss options regarding atrial fibrillation. Patient complains of shortness of breath for the past 2 weeks, no lower extremity edema but fullness in her abdomen. Increased shortness of breath with any activity. She denies any other change in her home medications. She states she does eat a lot of soups but they're homemade. Patient normally rides a recumbent bike until last week. Her last stress test was in December. Patient had a sleep study done 2 years ago which was negative. She denies any recent weight changes. Chest x-ray reveals mild pulmonary interstitial edema appears new. Probably mild heart failure. CAT scan of the pelvis with contrast revealed moderate sigmoid diverticulosis without diverticulitis. Normal appendix. No acute abnormality of the abdomen and pelvis. Mild interstitial infiltrates and atelectasis at the lung base and small right pleural effusion. Echocardiogram reveals EF of 45-50% with mild concentric left ventricular hypertrophy, mild aortic regurgitation, mild mitral regurgitation, severe tricuspid regurgitation, mild pulmonary hypertension. Patient is seen in the emergency center waiting for a bed on the [facility] floor. Consult added for cardiology. Patient has been seen by GI for abdominal fullness and EGD scheduled as outpatient will be rescheduled in the next 1-2 weeks. 06/02: Patient has been seen by cardiology and flecainide decreased to 100 mg twice daily. Patient has been afebrile, heart rate 64, blood pressure 98/62, pulse ox 94% on 3 L nasal cannula. D-dimer ordered. Anticipate discharge home tomorrow. REVIEW OF SYSTEMS Constitutional: No fever, no chills, no night sweats. No weight change. No weakness, fatigue or lethargy. No daytime sleepiness. EENT: No headache. No blurred vision or double vision, no loss of vision. No loss of Hearing, no ringing in the ears, no dizziness. No nasal drainage or congestion. No epistaxis. No sore throat. Lungs: Reports shortness of breath improving, cough, no sputum production. No wheezing. Reports dyspnea with exertion. Cardiovascular: No chest pain, no lower extremity edema. No palpitations. No paroxysmal nocturnal dyspnea. No orthopnea. No lightheadedness or dizziness. No syncopal episodes. Abdominal: No abdominal pain. No nausea, vomiting. No diarrhea. No constipation. No bloody or tarry stools. No loss of appetite. Genitourinary: No dysuria, increased frequency, urgency. No urinary retention. Musculoskeletal: No myalgias. No muscle weakness, no gait dysfunction, no frequent falls. No back pain. No neck pain. Integumentary: No wounds, no lesions. No rash or pruritus. No unusual bruising. No change in hair or nails. Neurologic: No aphasia. No facial droop. No change in mentation. No head injury. No headache. No paralysis. No paresthesia. Psychiatric: No depression. No anxiety. No mood swings. Endocrine: No abnormal blood sugars. No weight change. No excessive sweating or thirst. No cold intolerance. PHYSICAL EXAMINATION Gen: This is an 81-year-old female. Patient is resting bed appears to be comfortable and in no acute distress. HEENT: Head is atraumatic, normocephalic. Pupils equal, round. Sclerae is anicteric. NECK: Supple. No JVD. No lymphadenopathy. No thyromegaly. LUNGS: Crackles at the bilateral bases. No intercostal retractions. HEART: Regular rate and rhythm. No murmur. ABDOMEN: Soft. Mild abdominal distention. Bowel sounds are present. No masses. No tenderness. EXTREMITIES: No pedal edema. No calf tenderness. Dorsalis pedis +2 bilaterally. NEUROLOGICAL: Patient is awake, alert and oriented x3. Cranial nerves 2 through 12 are grossly intact. ASSESSMENT AND PLAN 1. Acute systolic heart failure. Cardiology consult appreciated. Continue oral Lasix 20 mg twice daily. 2. Paroxysmal atrial fibrillation atrial fibrillation. Continue flecainide decreased to 100 mg twice daily, nadolol 20 mg twice daily, Xarelto 20 mg daily. 3. History of tachybradycardia syndrome status post permanent pacemaker. 4. Hypertension. Continue losartan 50 mg twice daily. 5. Gastroesophageal reflux disease. Continue Protonix 40 mg daily. Patient's been seen by GI with plan for EGD in one to 2 weeks as an outpatient. 6. History of rheumatoid arthritis. 7. COVID-19 testing negative. Patient has been hospitalized during a pandemic. DISCHARGE PLAN most likely return home tomorrow. Impression and plan of care have been directed as dictated by the signing physician. Mirna Appiah nurse practitioner acting as scribe for signing physician. Objective - Vital Signs Vital signs: Vital Signs Temp 98.4 F 08/02/21 07:00 Pulse 64 08/02/21 07:00 Resp 18 08/02/21 07:00 BP 98/62 08/02/21 07:00 Pulse Ox 94 L 08/02/21 07:00 Intake & Output 08/01/21 08/02/21 08/02/21 18:59 06:59 18:59 Weight 90.718 kg Other: # Voids 1 - Labs CBC & Chem 7: 08/01/21 02:52 08/02/21 09:21
[2021-08-02 14:11] VITALS: BMI 30.4
--- NOTE | 2021-08-02 14:41 | P.PN ---
Subjective Progress Note Date: 08/02/21 Principal diagnosis: Shortness of breath 81-year-old female who presented to the emergency department with complaints of shortness of breath was found to be in congestive heart failure. Patient was initially scheduled yesterday to undergo an outpatient EGD for symptoms of fulln ess and difficulty swallowing foods such as breads and meats. Patient is without any complaints of difficulty swallowing at this time. She denies any abdominal pain. Cardiology is following closely. Objective - Vital Signs Vital signs: Vital Signs Temp 98.4 F 08/02/21 07:00 Pulse 64 08/02/21 07:00 Resp 18 08/02/21 07:00 BP 98/62 08/02/21 07:00 Pulse Ox 94 L 08/02/21 07:00 Intake & Output 08/01/21 08/02/21 08/02/21 18:59 06:59 18:59 Intake Total 240 Balance 240 Weight 90.718 kg Intake: Oral 240 Other: # Voids 1 1 - Exam General appearance: The patient is alert, oriented, appears in no acute distress. HET: Head is normocephalic and atraumatic. Conjunctiva pink. Sclera anicteric. Neck: Supple without lymphadenopathy. Abdomen: Soft, nontender, nondistended with bowel sounds. No guarding or rigidity. Extremities: Normal skin color and turgor. No pedal edema Skin: No rashes, no jaundice Neurological: No focal deficits. Alert and oriented -3. - Labs CBC & Chem 7: 08/01/21 02:52 08/02/21 09:21 Assessment and Plan (1) Abdominal pain Narrative/Plan: 81-year-old female who presented to the emergency department with complaints of shortness of breath and increased exertional dyspnea. Patient was scheduled today to have the EGD done with Dr. Ravi for abdominal fullness as well as dysphagia. Patient states she is not having any abdominal pain at this time she actually came in only for shortness of breath. She denies any nausea or vomiting. Most of her difficulty with swallowing as well as solid foods such as bread or meats. However she states she does not have any vomiting related to it or choking. No plans for endoscopic evaluation at this time. Will reschedule for outpatient 1-2 weeks. Current Visit: Yes Status: Acute Code(s): R10.9 - UNSPECIFIED ABDOMINAL PAIN SNOMED Code(s): 37934642 (2) Dysphagia Current Visit: Yes Status: Acute Code(s): R13.10 - DYSPHAGIA, UNSPECIFIED SNOMED Code(s): 52270473 (3) Congestive heart failure Narrative/Plan: Cardiology following Current Visit: Yes Status: Acute Code(s): I50.9 - HEART FAILURE, UNSPECIFIED SNOMED Code(s): 07554916 Plan: 1. Continue symptomatic and supportive care 2. Diet as tolerated 3. Protonix 40 mg daily 4. No plans on endoscopic evaluation. Will reschedule outpatient in 1-2 weeks. Thank you for this consultation, we will continue to follow. Dr. Gustavo Ravi I agree with the dictator's note, documented as a scribe by Jenni Augustin.
[2021-08-03] MEDS: PANTOPRAZOLE 40 MG TABLET PO SCH (07:46)
[2021-08-03] MEDS: CALCIUM CARBONATE 500 MG CHEWABLE PO SCH (07:50)
[2021-08-03] MEDS: FLECAINIDE 50 MG TAB PO SCH (07:52)
[2021-08-03] MEDS: FUROSEMIDE 10 MG/ML 2 ML VIAL IV SCH (07:53)
[2021-08-03] MEDS: RIVAROXABAN 20 MG TAB PO SCH (07:54)
[2021-08-03] MEDS: LOSARTAN 50 MG TAB PO SCH (07:56)
[2021-08-03] MEDS: ACETAMINOPHEN TAB 325 MG TAB PO PRN (08:01)
[2021-08-03 08:06] VITALS: BP 131/72; RESP 18; TEMP 97.8
[2021-08-03 08:22] VITALS: PULSE 61
--- NOTE | 2021-08-03 10:11 | P.DS ---
Providers Date of admission: 08/03/21 09:00 Expected date of discharge: 08/03/21 Attending physician: Tawny Young Consults: 08/01/21 04:58 Consult Physician Routine Consulting Provider: Eliza Ravi Consult Reason/Comments: Abdominal pain Do you want consulting provider notified?: Yes, Notify in am 08/01/21 14:59 Consult Physician Routine Consulting Provider: Nura Falk Consult Reason/Comments: CHF Do you want consulting provider notified?: Yes 08/03/21 05:32 Consult Physician Routine Consulting Provider: John Driver Consult Reason/Comments: pulmonary fibrosis Do you want consulting provider notified?: Yes Primary care physician: [facility] Course: HISTORY OF PRESENT ILLNESS This is an 81-year-old female patient of Dr. Milner and Dr. Falk with past medical history of paroxysmal atrial fibrillation status post ablation, tachybradycardia syndrome status post permanent pacemaker, hypertension, gastroesophageal reflux disease, rheumatoid arthritis, osteoporosis, glaucoma she is status post cardiac ablation with Dr. Cordon. Patient states that she saw Dr. Falk last week and he increased her flecainide 250 mg twice daily with plan to follow up appointment with Dr. Mccollum to discuss options regarding atrial fibrillation. Patient complains of shortness of breath for the past 2 weeks, no lower extremity edema but fullness in her abdomen. Increased shortness of breath with any activity. She denies any other change in her home medications. She states she does eat a lot of soups but they're homemade. Patient normally rides a recumbent bike until last week. Her last stress test was in December. Patient had a sleep study done 2 years ago which was negative. She denies any recent weight changes. Chest x-ray reveals mild pulmonary interstitial edema appears new. Probably mild heart failure. CAT scan of the pelvis with contrast revealed moderate sigmoid diverticulosis without diverticulitis. Normal appendix. No acute abnormality of the abdomen and pelvis. Mild interstitial infiltrates and atelectasis at the lung base and small right pleural effusion. Echocardiogram reveals EF of 45-50% with mild concentric left ventricular hypertrophy, mild aortic regurgitation, mild mitral regurgitation, severe tricuspid regurgitation, mild pulmonary hypertension. Patient is seen in the emergency center waiting for a bed on the [facility] floor. Consult added for cardiology. Patient has been seen by GI for abdominal fullness and EGD scheduled as outpatient will be rescheduled in the next 1-2 weeks. 08/02: Patient has been seen by cardiology and flecainide decreased to 100 mg twice daily. Patient has been afebrile, heart rate 64, blood pressure 98/62, pulse ox 94% on 3 L nasal cannula. D-dimer ordered. Anticipate discharge home tomorrow. 08/03: Cardiology ordered 1 dose of IV Lasix this morning and we will transition her over to oral Lasix which will be 20 mg daily. She will be continue on the lower dose of flecainide. D-dimer came back yesterday at 0.96. CT a of the chest revealed COPD, chronic interstitial pulmonary fibrosis. Groundglass changes could be on the basis of pneumonitis. No pulmonary embolism. Cardiomegaly with coronary artery calcification. Left upper lobe 3 mm pulmonary nodule too small to characterize. Patient was seen by multiple consultants including pulmonary medicine for dyspnea on exertion with her conditions to optimize CHF treatment and follow-up outpatient. EGD will be rescheduled with GI office. Patient will be discharged home today in stable condition. DISCHARGE DIAGNOSES 1. Acute systolic heart failure. 2. Paroxysmal atrial fibrillation atrial fibrillation. 3. History of tachybradycardia syndrome status post permanent pacemaker. 4. Hypertension. 5. Gastroesophageal reflux disease. 6. History of rheumatoid arthritis. 7. COVID-19 testing negative. Patient has been hospitalized during a pandemic. DISCHARGE PLAN Home Greater than 35 minutes was utilized and coordinating patient's discharge. Impression and plan of care have been directed as dictated by the signing physician. Mirna Appiah nurse practitioner acting as scribe for signing physician. Patient Condition at Discharge: Good Plan - Discharge Summary Discharge Rx Participant: No New Discharge Prescriptions: New Flecainide [Tambocor] 100 mg PO BID #120 tab Furosemide [Lasix] 20 mg PO DAILY #30 tab Beclomethasone Dipropionate [Qvar 80mcg Redihaler] 1 puff PO BID #1 inh Albuterol Inhaler [Ventolin Hfa Inhaler] 2 puff INHALATION RT-QID PRN #8 gm PRN Reason: Wheezing Continue Rivaroxaban [Xarelto] 20 mg PO DAILY Losartan Potassium [Cozaar] 50 mg PO BID nadoloL [Corgard] 20 mg PO BID Multivit with Calcium,Iron,Min [Women's Multivitamin] 1 tab PO DAILY Flecainide Acetate [Tambocor] 150 mg PO BID Omeprazole [PriLOSEC] 20 mg PO AC-BRKFST Bimatoprost [Lumigan .01% Ophth Soln] 1 drop RIGHT EYE HS Cranberry Fruit Extract [Cranberry] 200 mg PO DAILY Calcium Carbonate [Calcium] 600 mg PO DAILY Discharge Medication List Rivaroxaban [Xarelto] 20 mg PO DAILY 12/31/18 [History] Losartan Potassium [Cozaar] 50 mg PO BID 02/27/19 [History] nadoloL [Corgard] 20 mg PO BID 12/21/20 [History] Bimatoprost [Lumigan .01% Ophth Soln] 1 drop RIGHT EYE HS 07/27/21 [History] Flecainide Acetate [Tambocor] 150 mg PO BID 07/27/21 [History] Multivit with Calcium,Iron,Min [Women's Multivitamin] 1 tab PO DAILY 07/27/21 [History] Omeprazole [PriLOSEC] 20 mg PO AC-BRKFST 07/27/21 [History] Calcium Carbonate [Calcium] 600 mg PO DAILY 08/01/21 [History] Cranberry Fruit Extract [Cranberry] 200 mg PO DAILY 08/01/21 [History] Albuterol Inhaler [Ventolin Hfa Inhaler] 2 puff INHALATION RT-QID PRN #8 gm 08/03/21 [Rx] Beclomethasone Dipropionate [Qvar 80mcg Redihaler] 1 puff PO BID #1 inh 08/03/21 [Rx] Flecainide [Tambocor] 100 mg PO BID #120 tab 08/03/21 [Rx] Furosemide [Lasix] 20 mg PO DAILY #30 tab 08/03/21 [Rx] Follow up Appointment(s)/Referral(s): Madhu Milner MD [Primary Care Provider] - 08/10/21 1:00 pm (Appointment will be with BENJAMIN Nelson) Nura Falk MD [STAFF PHYSICIAN] - 08/22/21 2:15 pm [facility] - 1 Week (COLONOSCOPY op RESCHEDULE) Jailyn Persaud MD [STAFF PHYSICIAN] - 08/18/21 3:15 pm Patient Instructions/Handouts: Heart Healthy Diet (DC) Activity/Diet/Wound Care/Special Instructions: heart healthy diet. activity as tolerated. follow up as directed. call your DR with return or worsening of the symptoms that brought you here or any concerns. Discharge Disposition: HOME SELF-CARE
--- NOTE | 2021-08-03 11:00 | P.CNPUL ---
History of Present Illness Consult date: 08/03/21 Reason for consult: dyspnea History of present illness: 81-year-old here patient who originally admitted to the hospital because of fullness in her abdomen and some shortness of breath. The patient had been having the symptoms for several weeks. She was seen in consultation by gastroenterology. EGD was scheduled on outpatient basis. Note that the patient had dysphagia and I have done a swallow evaluation this patient on an outpatient basis that came back negative. Meanwhile, the patient was found to be mild CHF, cardiology was involved in her care. A pulmonary consultation was also requested regarding her shortness of breath. Note that her d-dimer was at 0.9. Troponins were negative. ProBNP level was 586. Electrolytes were all within normal limits. Her COVID19 testing was negative.. The patient was seen in my office approximately 2 months ago for shortness of breath . As stated, she has a history of proximal atrial fibrillation postcardiac ablation and post permanent pacemaker insertion, coming in for evaluation of shortness of breath. She had a similar presentation to [facility] back in December 2020. She states that she is becoming short of breath with exertion and she feels tired and fatigued. At the same time, she denies having any chest pain. Cardiac enzymes were negative and EKG was negative. Chest x-ray showed no acute abnormalities. The patient had thoracic kyphoscoliosis and kyphoplasty performed in her T-spine related to previous compression fracture of the spine. The patient had no consolidation or lung masses or effusions. At the same time, to the echocardiogram was done and the ejection fraction was 60-65% without any valvular abnormalities. Lexiscan cardiac stress test showed no acute abnormalities.. Accordingly, the patient was released home. Currently she remains in atrial fibrillation. No swelling in lower extremities. No signs of any decompensated heart failure. Some occasional cough with cough with swallowing. She is a lifetime nonsmoker. No asthma. No emphysema. She has not tried any form of respiratory medications or inhalers. No recurrent pneumonias. No recurrent bronchitis. No DVT. No pulmonary embolism. No history of pulmonary fibrosis. She has history of rheumatoid arthritis which is currently inactive and stable. No history of any interstitial lung disease or lung scarring from rheumatoid arthritis. on a separate note, the patient occasionally chokes and she coughs whenever she is swallowing solid material. She thinks that she may be having some difficulties with swallowing. Also, she feels irritation in her upper airways. No hoarseness.. A CAT scan of the abdomen that was done during this current admission showed no acute intra-abdominal abnormalities. It showed moderate sigmoid diverticulosis. Subsegmental atelectatic changes were seen in the lung bases bilaterally along with a small right-sided pleural effusion. The heart was enlarged. CT angiogram showed no distended pulmonary embolism. It showed some hazy ground glass changes bilaterally that was quite faint most consistent with CHF. No evidence of any consolidation. Some limited bronchiectatic changes in lung bases bilaterally. The patient had compression deformities of her thoracic spine and previous history of vertebroplasty. Currently she is on room air oxygen. She was seen by cardiology. Echocardiogram was also done and it showed a ejection fraction of 45-50%. RV was mildly enlarged. There was mild degree of pulmonary hypertension with a PA pressure of 44. The patient had no significant wall motion abnormalities. The patient had some apical septal LV wall motion hypokinesis. Review of Systems CARDIOPULMONARY: No chest pain. Shortness of breath. Gastrointestinal: No abdominal pain. A full feeling with some difficulty swallowing solids. No nausea or vomiting. No hematemesis, coffee-ground emesis. No rectal bleeding, or melena. GENITOURINARY: No dysuria or hematuria. MUSCULOSKELETAL: Reports normal range of motion., Joint pain. SKIN: No rashes. No jaundice. ENDOCRINE: No chills, fevers. No excessive weight gain or loss. No polydipsia or polyuria. PSYCHIATRIC: Unremarkable. NEUROLOGY: No change in mental status. Denies dizziness, headache. ENT: Vision unremarkable. CONSTITUTIONAL: No recent weight loss. No fever, chills, night sweats. Past Medical History Past Medical History: Atrial Fibrillation, Cancer, Eye Disorder, GERD/Reflux, Hypertension, Rheumatoid Arthritis (RA) Additional Past Medical History / Comment(s): pacemaker., skin cancer, chronic back pain/herniated/hairline fractures/osteoporosis, legs weak with ambulation, several UTI's last year. 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 History of Any Multi-Drug Resistant Organisms: None Reported Past Surgical History: Back Surgery, Cardiac Ablation, Cholecystectomy, Pacemaker Additional Past Surgical History / Comment(s): 2019 cardiac ablation, 2016 pacemaker., kyphoplasty, colonoscopy, skin cancer removal, bilateral cataract removal/lens implants. EGD. Past Anesthesia/Blood Transfusion Reactions: No Reported Reaction Additional Past Anesthesia/Blood Transfusion Reaction / Comment(s): Pt has clausterphobia. Type of Cardiac Device: Permanent Pacemaker Device Placement Date:: 2015 Past Psychological History: No Psychological Hx Reported Additional Psychological History / Comment(s): . Smoking Status: Never smoker Past Alcohol Use History: Rare Past Drug Use History: None Reported Additional Drug Use History / Comment(s): CBD TOPICAL ON BACK. - Past Family History Mother Family Medical History: CVA/TIA Additional Family Medical History / Comment(s): BLOOD CLOT IN THE BRAIN, AT AGE 61. Daughter(s) Family Medical History: Cancer Additional Family Medical History / Comment(s): MELANOMA & SQUAMOUS CELL CANCER Father Family Medical History: Respiratory Disorder Additional Family Medical History / Comment(s): Father of black lung. He work in the [employer]. Medications and Allergies Home Medications Medication Instructions Recorded Confirmed Type Rivaroxaban [Xarelto] 20 mg PO DAILY 12/31/18 08/01/21 History Losartan Potassium [Cozaar] 50 mg PO BID 02/27/19 08/01/21 History nadoloL [Corgard] 20 mg PO BID 12/21/20 08/01/21 History Bimatoprost [Lumigan .01% Ophth 1 drop RIGHT EYE HS 07/27/21 08/01/21 History Soln] Flecainide Acetate [Tambocor] 150 mg PO BID 07/27/21 08/01/21 History Multivit with Calcium,Iron,Min 1 tab PO DAILY 07/27/21 08/01/21 History [Women's Multivitamin] Omeprazole [PriLOSEC] 20 mg PO AC-BRKFST 07/27/21 08/01/21 History Calcium Carbonate [Calcium] 600 mg PO DAILY 08/01/21 08/01/21 History Cranberry Fruit Extract [Cranberry] 200 mg PO DAILY 08/01/21 08/01/21 History Albuterol Inhaler [Ventolin Hfa 2 puff INHALATION RT-QID PRN #8 gm 08/03/21 Rx Inhaler] Beclomethasone Dipropionate [Qvar 1 puff PO BID #1 inh 08/03/21 Rx 80mcg Redihaler] Flecainide [Tambocor] 100 mg PO BID #120 tab 08/03/21 Rx Furosemide [Lasix] 20 mg PO DAILY #30 tab 08/03/21 Rx Allergies Allergy/AdvReac Type Severity Reaction Status Date / Time etodolac [From [facility]] Allergy Rash/Hives Verified 08/01/21 08:16 Physical Exam Vitals: Vital Signs Temp Pulse Pulse Resp BP BP Pulse Ox 08/03/21 08:21 61 08/03/21 07:10 97.8 F 68 18 131/72 92 L 08/03/21 01:33 98.2 F 58 L 16 97/56 91 L 08/02/21 20:28 98.1 F 63 16 132/75 96 08/02/21 20:00 60 16 08/02/21 16:00 97.6 F 60 16 105/65 91 L 08/02/21 11:36 94 L Intake and Output 08/02/21 08/03/21 08/03/21 22:59 06:59 14:59 Intake Total 240 Balance 240 Intake: Oral 240 Other: # Voids 1 1 General Appearance no diaphoresis, no respiratory distress, speech not interrupted by breaths, no dyspnea, no pallor, not cachectic, well nourished, appears well, obesity HEENT no pursed lip breathing, no jugular venous distention, no mucous membrane cyanosis, no perioral cyanosis, mallampati classification: class 1 Chest no barrel chest, no retractions, no sternocleidomastoid muscle contractions, no supraclavicular retractions, no intercostal retractions, no prolonged expiratory wheezing, no decreased air movement, no rhonchi, no hyp erinflation, (normal) adventitious sounds: rales / crackles: bilaterally: midlung clemente, decreased air movement (thoracic compression and deformity) Heart no right ventricular heave, no distant heart sounds, no s3 gallop, (normal) jugular vein: jugular venous distention: by 0cm, (normal) jugular vein GI bowel sounds: hyperactive (borborygmi), bowel sounds: diminished or absent Extremities no cyanosis, no clubbing, no edema Neurologic no decreased mental status, no somnolence, no confusion Assisstive Devices: ambulates with no assitive devices Gait and Mobility: gait WNL, full weight bearing Skin General Appearance normal, (normal) normal except as noted Results - Laboratory Findings CBC and BMP: 08/01/21 02:52 08/02/21 09:21 PT/INR, D-dimer PT 11.7 sec (9.0-12.0) 08/01/21 02:52 INR 1.1 (<1.2) 08/01/21 02:52 D-Dimer 0.96 mg/L FEU (<0.60) H 08/02/21 09:21 Abnormal lab findings: Abnormal Labs 08/01/21 08/02/21 08/02/21 02:52 09:21 09:21 D-Dimer 0.96 H Sodium 126 L 136 L Chloride 95 L Carbon Dioxide 19 L BUN 24 H 18 H Glucose 169 H 176 H AST 122 H 84 H ALT 105 H 119 H Assessment and Plan Plan: 1 dyspnea on exertion this patient's shortness of breath is multifactorial. The patient is known to have chronic atrial fibrillation and the patient has a pacemaker in place. In terms of her pulmonary status, the patient history of thoracic kyphoscooliosis and the patient also has developed infection fraction of the T-spine treated by kyphoplasty in the past. As such, the patient has a component of extrapulmonary restriction and this is very well reflected on her pulmonary function test that shows an FVC of 63% and a total lung capacity of 71% and a diffusion capacity of 68%. No evidence of any pulmonary fibrosis. No evidence of pneumonias. No evidence of any chronic lung disease. There may be some chronic interstitial changes in lung bases bilaterally based on the most recent CT of the chest. This could be age-related and chronic current early-stage of rheumatoid lung cannot be completely excluded. Nevertheless, there is nonicteric decompensating factor for this patient. The mild and hazy groundglass changes are probably related to CHF. Note that the patient is fully vaccinated for COVID 19 2 CHF with mild impairment of the LV function with an ejection fraction of around 40-45% along with some mild segmental wall motion abnormalities. 3 mild pulmonary hypertension 4 abdominal discomfort, under investigation with GI 5 sigmoid diverticulosis 6 chronic atrial fibrillation 7 history of permanent pacemaker insertion, for an underlying tachybradycardia syndrome 8 history of chronic kyphoscoliosis of the spine and the patient has undergone previous kyphoplasty 9 Plan The patient can be discharged home today from the pulmonary standpoint to be followed up on outpatient basis. No need for any active pulmonary intervention at this point in time. Optimize CHF. No need for O2 therapy at this point.
[2021-08-03] MEDS ORDERED: FUROSEMIDE 40 MG TAB PO STA (11:54)
--- NOTE | 2021-08-03 11:59 | P.PN ---
Subjective Progress Note Date: 08/03/21 This is a 81-year-old female with history of persistent atrial fibrillation status post ablation. Recent evaluation showed that patient is having more episodes of atrial fibrillation. The dose of the flecainide was increased to 150 mg by mouth twice a day. Patient seemed to be maintaining mostly sinus r hythm but she came to the hospital with complaints of progressive shortness of breath. Chest x-ray showed evidence of a possible CHF. However her pro BNP is not that much elevated. She was treated with IV Lasix with improvement of her symptoms. Her d-dimer was elevated. Computed tomography scan did not show any pulmonary emboli, but was suggestive of pulmonary fibrosis. A pulmonary consult is requested. Overall, patient is feeling better. We will switch from IV Lasix to by mouth Lasix. Patient could be discharged home. Objective - Vital Signs Vital signs: Vital Signs Temp 97.8 F 08/03/21 07:10 Pulse 61 08/03/21 08:21 Resp 18 08/03/21 07:10 BP 131/72 08/03/21 07:10 Pulse Ox 92 L 08/03/21 07:10 Intake & Output 08/02/21 08/03/21 08/03/21 18:59 06:59 18:59 Intake Total 720 Balance 720 Weight 90.718 kg Intake: Oral 720 Other: # Voids 2 1 - Exam GENERAL EXAM: Patient is alert and oriented and doesn't appear to be in any acute distress HEENT: Normocephalic. Normal reaction of pupils, equal size, normal range of extraocular motion. No erythema or exudates in the throat. NECK: No masses, no nuchal rigidity. CHEST: No chest wall deformity. LUNGS: Equal air entry with no crackles or wheeze. HEART: S1 and S2 normal with no audible mumurs or gallops. Regular rhythm, femorals equal on both sides.. ABDOMEN: No hepatosplenomegaly, normal bowel sounds, no guarding or rigidity. SKIN: No rashes CENTRAL NERVOUS SYSTEM: No focal deficits. EXTREMITIES: No cyanosis, clubbing or edema. - Labs CBC & Chem 7: 08/01/21 02:52 08/02/21 09:21 Assessment and Plan (1) Acute combined systolic and diastolic CHF, NYHA class 1 Current Visit: Yes Status: Acute Code(s): I50.41 - ACUTE COMBINED SYSTOLIC AND DIASTOLIC (CONGESTIVE) HRT FAIL SNOMED Code(s): 778825083931153 (2) Persistent atrial fibrillation Current Visit: Yes Status: Acute Code(s): I48.19 - OTHER PERSISTENT ATRIAL FIBRILLATION SNOMED Code(s): 281005448 (3) Hypertension Current Visit: Yes Status: Acute Code(s): I10 - ESSENTIAL (PRIMARY) HYPERTENSION SNOMED Code(s): 26969613 (4) Restrictive lung disease Current Visit: Yes Status: Acute Code(s): J98.4 - OTHER DISORDERS OF LUNG SNOMED Code(s): 51207471 (5) History of permanent cardiac pacemaker placement Current Visit: Yes Status: Acute Code(s): Z95.0 - PRESENCE OF CARDIAC PACEMAKER SNOMED Code(s): 500546058 Plan: Switch to by mouth Lasix. Flecainide is cut back to 100 mg by mouth twice a day. Continue rest of the medication. Patient to see Dr. Cordon as an outpatient for possible repeat ablation for A. fib
--- NOTE | 2021-08-03 15:03 | P.PN ---
Subjective Progress Note Date: 08/03/21 Principal diagnosis: Shortness of breath 81-year-old female who presented to the emergency department with complaints of shortness of breath was found to be in congestive heart failure. Patient was initially scheduled to undergo an outpatient EGD for symptoms of fullness and di fficulty swallowing foods such as breads and meats. Patient is without any complaints of difficulty swallowing at this time. She denies any abdominal pain. Cardiology is following closely. Plan is for discharge home today. Objective - Vital Signs Vital signs: Vital Signs Temp 97.8 F 08/03/21 07:10 Pulse 61 08/03/21 08:21 Resp 18 08/03/21 07:10 BP 131/72 08/03/21 07:10 Pulse Ox 92 L 08/03/21 07:10 Intake & Output 08/02/21 08/03/21 08/03/21 18:59 06:59 18:59 Intake Total 720 100 Output Total 125 Balance 720 -25 Weight 90.718 kg Intake: Oral 720 100 Output: Urine 125 Other: # Voids 2 1 1 - Exam General appearance: The patient is alert, oriented, appears in no acute distress. HET: Head is normocephalic and atraumatic. Conjunctiva pink. Sclera anicteric. Neck: Supple without lymphadenopathy. Abdomen: Soft, nontender, nondistended with bowel sounds. No guarding or rigidity. Extremities: Normal skin color and turgor. No pedal edema Skin: No rashes, no jaundice Neurological: No focal deficits. Alert and oriented -3. - Labs CBC & Chem 7: 08/01/21 02:52 08/02/21 09:21 Assessment and Plan (1) Abdominal pain Narrative/Plan: 81-year-old female who presented to the emergency department with complaints of shortness of breath and increased exertional dyspnea. Patient was scheduled today to have the EGD done with Dr. Ravi for abdominal fullness as well as dysphagia. Patient states she is not having any abdominal pain at this time she actually came in only for shortness of breath. She denies any nausea or vomiting. Most of her difficulty with swallowing as well as solid foods such as bread or meats. However she states she does not have any vomiting related to it or choking. No plans for endoscopic evaluation at this time. Will reschedule for outpatient 1-2 weeks. Current Visit: Yes Status: Acute Code(s): R10.9 - UNSPECIFIED ABDOMINAL PAIN SNOMED Code(s): 77969512 (2) Dysphagia Current Visit: Yes Status: Acute Code(s): R13.10 - DYSPHAGIA, UNSPECIFIED SNOMED Code(s): 34137809 (3) Congestive heart failure Narrative/Plan: Cardiology following Current Visit: Yes Status: Acute Code(s): I50.9 - HEART FAILURE, UNSPECIFIED SNOMED Code(s): 40666681 Plan: 1. Continue symptomatic and supportive care 2. Diet as tolerated 3. Protonix 40 mg daily 4. No plans on endoscopic evaluation. Will reschedule outpatient in 1-2 weeks. Thank you for this consultation, the patient is cleared by gastroenterology for discharge. We will sign off at this time. Dr. Gustavo Ravi I agree with the dictator's note, documented as a scribe by Jenni Augustin.
== END 2021-08-03 16:03 | disposition home or self-care (01) | DRG 291 ==
LOC: EC 02:05 → 6NMEDSUR 04:58 → OBSVTOIN 08-03 09:00
PROVIDERS: ADMIT Family Medicine; ATTEND Family Medicine
DX: I11.0 Hypertensive heart disease with heart failure (principal); I50.41 Acute combined systolic (congestive) and diastolic (congestive) heart failure; I48.19 Other persistent atrial fibrillation; J98.11 Atelectasis; K55.9 Vascular disorder of intestine, unspecified; Z20.822 Contact with and (suspected) exposure to COVID-19; I25.10 Atherosclerotic heart disease of native coronary artery without angina pectoris; I27.20 Pulmonary hypertension, unspecified; J47.9 Bronchiectasis, uncomplicated; I49.5 Sick sinus syndrome; J84.10 Pulmonary fibrosis, unspecified; I48.0 Paroxysmal atrial fibrillation; J98.4 Other disorders of lung; I08.3 Combined rheumatic disorders of mitral, aortic and tricuspid valves; K21.9 Gastro-esophageal reflux disease without esophagitis; K57.30 Diverticulosis of large intestine without perforation or abscess without bleeding; M06.9 Rheumatoid arthritis, unspecified; M41.9 Scoliosis, unspecified; M81.0 Age-related osteoporosis without current pathological fracture; R13.10 Dysphagia, unspecified; Z79.01 Long term (current) use of anticoagulants; Z79.899 Other long term (current) drug therapy; Z98.42 Cataract extraction status, left eye; Z98.41 Cataract extraction status, right eye; Z80.8 Family history of malignant neoplasm of other organs or systems; Z82.3 Family history of stroke; Z82.49 Family history of ischemic heart disease and other diseases of the circulatory system; Z85.828 Personal history of other malignant neoplasm of skin; Z95.0 Presence of cardiac pacemaker; Z96.1 Presence of intraocular lens; Z88.8 Allergy status to other drugs, medicaments and biological substances; Z90.49 Acquired absence of other specified parts of digestive tract; Z87.440 Personal history of urinary (tract) infections
CPT/HCPCS: 36415; 71045; 71275; 74019; 74177; 80053; 83605; 83690; 83880; 84484; 85025; 85379; 85610; 85730; 87635; 93005; 93306

== ENCOUNTER → 2021-08-17 | Outpatient (CLI) | payer MEDICARE ==
[2021-08-17 23:17] LABS: Basophils # (A) 0.06 X 10*3/uL (0.00-0.10); Basophils % (A) 0.9 %; Eosinophils # (A) 0.23 X 10*3/uL (0.04-0.35); Eosinophils % (A) 3.6 %; HCT 44.1 % (37.2-46.3); Lymphocytes # (A) 2.05 X 10*3/uL (0.90-5.00); Lymphocytes % (A) 32.3 %; MCH 28.7 pg (27.0-32.0); MCHC 31.7 g/dL (32.0-37.0); MCV 90.4 fL (80.0-97.0); Mean Platelet Volume 9.4 fL (9.5-12.2); Monocytes # (A) 0.84 X 10*3/uL (0.20-1.00); Monocytes % (A) 13.2 %; Neutrophils # (A) 3.15 X 10*3/uL (1.80-7.70); Neutrophils % (A) 49.8 %; Platelet Count 249 X 10*3/uL (140-440); RBC 4.88 X 10*6/uL (4.10-5.20); RDW 13.9 % (11.5-14.5); WBC 6.34 X 10*3/uL (4.50-10.00)
[2021-08-17 23:33] LABS: Albumin 4.4 g/dL (3.8-4.9); Albumin/Globulin Ratio 1.63 (1.60-3.17); Anion Gap 5.3 mmol/L (10.00-18.00); BUN/Creat Ratio 23.82 Ratio (12.00-20.00); Blood Urea Nitrogen 18.7 mg/dL (9.0-27.0); Calcium 9.5 mg/dL (8.7-10.3); Carbon Dioxide 29.6 mmol/L (20.0-27.5); Globulin 2.7 g/dL (1.6-3.3); Non-African American GFR(CKD) 70.7 (60.0-200.0); Potassium 4.4 mmol/L (3.5-5.5); Total Bilirubin 0.3 mg/dL (0.30-1.20); Total Protein 7.1 g/dL (6.2-8.2)
== END | disposition home or self-care (01) ==
LOC: LABPAT 14:09
PROVIDERS: ATTEND Internal Medicine Clinical Cardiac Electrophysiology
DX: Z01.812 Encounter for preprocedural laboratory examination (principal); Z20.822 Contact with and (suspected) exposure to COVID-19; I48.19 Other persistent atrial fibrillation
CPT/HCPCS: 80053; 83735; 85025; 36415; U0003; C9803

== ENCOUNTER 2021-08-22 09:33 | Day surgery (SDC) | payer MEDICARE ==
[2021-08-17 11:42] VITALS: BMI 32.4
[~2021-08-22 09:33] MED LIST changes: -DENOSUMAB 60 MG/ML 1 ML SYRINGE SQ ONE; +SODIUM CHLORIDE 0.9% 1,000 ML IV SCH
[2021-08-22 09:55] VITALS: PULSE 101; RESP 18; TEMP 98.8
[2021-08-22] MEDS ORDERED: IOPAMIDOL-370 50ML BTL INJ ONE (10:32)
[2021-08-22 11:16] VITALS: BP 145/85
--- NOTE | 2021-08-22 11:20 | P.EPPROC ---
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 Underlying sick sinus syndrome with a dual-chamber pacemaker implant History of cryoablation pulmonary veins Cinefluoroscopy of the leads Cinefluoroscopy of the leads was performed Right atrial lead screwed in the right atrial appendage and stable RV lead position and the RV apex, stable No fractures or breaks Left upper extremity venogram 10 mL IV dye injected in the left arm Mild stenosis of the axillary supplement junction on the left side The vein is patent enough that to allow passage of and LV lead along with the sheath into the right atrium Plan Proceed with upgrade to a biventricular pacemaker with LV lead placement 4-6 weeks later, proceed with AV node ablation In the interim increase nadolol to 40 mg twice daily for better rate control Continue Xarelto Pacemaker upgraded instructions given to the patient See Dr. Falk within 1-2 weeks for assessment of rate control on 40 mg twice daily and nadolol Patient instructed to hold Cozaar if BP is low but continue nadolol for rate control
== END 2021-08-22 11:16 | disposition home or self-care (01) ==
LOC: CATHEP 09:33
PROVIDERS: ATTEND Internal Medicine Clinical Cardiac Electrophysiology
DX: I48.19 Other persistent atrial fibrillation (principal)
CPT/HCPCS: 33214; 36005; 75820; Q9967

== ENCOUNTER 2021-08-31 09:42 | Day surgery (SDC) | payer MEDICARE ==
[2021-08-30 09:42] VITALS: BMI 32.9
[~2021-08-31 09:42] MED LIST changes: +ceFAZolin 1 GM in SODIUM CHLORIDE 0.9% IRRIG BTL 250 ML IRRIGATION PRN
[2021-08-31 10:42] VITALS: RESP 16
[2021-08-31] MEDS ORDERED: LIDOCAINE 1% INJ 10MG/ML (20 ML MDV) ONE ×2 (13:54→14:22)
[2021-08-31] MEDS ORDERED: LIDOCAINE 1% INJ 10MG/ML (20 ML MDV) SQ ONE ×2 (14:10→14:45)
[2021-08-31] MEDS ORDERED: IOPAMIDOL-370 50ML BTL INJ ONE (14:53)
--- NOTE | 2021-08-31 16:02 | P.EPPROC ---
- EP Procedure Note Electrophysiology Procedure Note: Extended procedure This is a long procedure more than usual The original pacemaker was subcutaneous line a new subfascial pocket to be made. Partial capsulectomy was performed and the atrial and ventricular leads, chronic implanted, were freed While the coronary sinus was very easily accessed, its lateral branch had a valve close to the ostium and its curve very long time to across this valve into the lateral vein Multiple sheaths, multiple in her sheaths, multiple LV leads, guidewires were used and finally we were able to pass a guidewire across the valve The lead past over with some difficulty with the sheath not pass across this valve However the LV lead was placed in the lateral vein in a very secure position and the sheath was removed from the coronary sinus and then slipped completely No diaphragmatic stimulation good thresholds especially in the proximal pupils 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
--- NOTE | 2021-08-31 16:09 | P.EPPROC ---
- EP Procedure Note Electrophysiology Procedure Note: Diagnosis A. fib with RVR despite high-dose beta blockers, syncope Tachycardia mediated cardio myopathy Congestive heart failure class III, left ventricle ejection fraction 40-45% Status post dual-chamber pacemaker implantation past Upgrade to a biventricular pacemaker with LV lead placement Patient awaiting AV node ablation Procedure LV lead in the lateral vein biventricular pacemaker generator implantation Removal of dual-chamber pacemaker generator Details Patient was brought to the EP lab in a fasting state. Written informed consent was obtained prior to the procedure. Conscious sedation provided by anesthesia team IV antibiotics administered. Local anesthesia administered. A 4 cm incision made in the pectoral area. New Subfascial pocket made. Dual-chamber pacemaker generator explanted Chronic right atrial and right ventricular leads were freed from the surrounding tissues Venous access obtained Venous sheaths placed. Leads placed in the right heart Atrial lead position the right atrial appendage. Chronic Patient is in atrial fibrillation, impedance 594 ohms RV lead position in the RV apex. Chronic, R waves 11 mV, pacing impedance 589 ohms Threshold 0.75 V at 0.4 ms LV lead positioned in the LV vein. Difficult lateral vein to access in place lead, on account of the valve at its ostium [employer] 1458 Q [id number] Chronic dual-chamber pacemaker explanted Biventricular pacemaker device connected to the leads and placed in the subfa scial pocket Patient tolerance the procedure well without acute complications Please see separate dictation for increased procedural services
--- NOTE | 2021-08-31 16:10 | P.PRLE ---
RE: Ginny Murillo Dear Shirin Ginny underwent upgrade to a biventricular pacemaker for management of heart failure and A. fib with RVR After about 6 weeks we'll proceed with an AV node ablation which will result in 100% Bi V pacing Hopefully this will improve her heart failure status Thank you for entrusting me with the care of the patient Warm regards Sincerely Eulalio Cordon
[2021-08-31] MEDS ORDERED: ACETAMINOPHEN IV (For NPO) 1,000 MG in EMPTY BAG 1 BAG IVPB ONE (16:13)
--- NOTE | 2021-08-31 17:17 | XR ---
EXAMINATION TYPE: XR chest 1V portable DATE OF EXAM: 08/31/2021 COMPARISON: Chest x-ray 08/01/2021, 08/17/2021 HISTORY: Lead placement check TECHNIQUE: Single frontal view of the chest is obtained. FINDINGS: There is a generator in the left pectoral region, leads are present in the right atrium an d ventricle, coronary sinus. No evident pneumothorax. Patient is again rotated. Heart is enlarged. Ri ght hemidiaphragm is elevated. No evident effusion. Aorta is dense. IMPRESSION: No evident complication status post lead placement.
[2021-08-31] MEDS: METOPROLOL SUCCINATE (ER) 100 MG TAB.ER.24H PO SCH (19:33)
[2021-08-31] MEDS: ACETAMINOPHEN TAB 325 MG TAB PO PRN (19:34)
[2021-08-31] MEDS ORDERED: NON FORMULARY DRUG (Losartan Potassium [Cozaar] 100 MG Tablet) PO SCH (21:00)
[2021-09-01 03:02] VITALS: PULSE 106
[2021-09-01 07:43] VITALS: BP 112/75; TEMP 97.4
[2021-09-01] MEDS: ACETAMINOPHEN TAB 325 MG TAB PO PRN (07:46)
[2021-09-01] MEDS: METOPROLOL SUCCINATE (ER) 100 MG TAB.ER.24H PO SCH (07:46)
--- NOTE | 2021-09-01 08:21 | P.DS ---
Providers Attending physician: Eulalio Cordon Primary care physician: [facility] Hospital Course: Patient is doing well Mild discomfort in the left pectoral area No chest discomfort no dizziness no lightheadedness or palpitations Pulse rate between 100 120 beats a minute atrial fibrillation Afebrile Blood pressure 112/75 Blood pressure has been stable Impression Atrial fibrillation with RVR status post ablation Remains in organized atrial fibrillation Tachycardia mediated cardio myopathy Status post upgrade to a biventricular pacemaker Awaiting electrical cardioversion on 100 mg by mouth daily of amiodarone and AV node modification Procedure will be performed in September Plan Discharge home today Amiodarone 100 mg by mouth daily Switched to Toprol-XL 200 mg by mouth daily Reduce the dose of losartan Continue anticoagulation Device clinic follow-up Procedure planned for next month Discussed the patient and her nurse Plan - Discharge Summary Discharge Rx Participant: Yes New Discharge Prescriptions: New Losartan [Cozaar] 50 mg PO HS #90 tab Metoprolol Succinate (ER) [Toprol Xl] 200 mg PO DAILY #90 tab Amiodarone [Cordarone] 100 mg PO DAILY #90 tab Continue Rivaroxaban [Xarelto] 20 mg PO HS Multivit with Calcium,Iron,Min [Women's Multivitamin] 1 tab PO DAILY Furosemide [Lasix] 40 mg PO DAILY Acetaminophen [Tylenol Arthritis] 650 - 1,300 mg PO BID PRN PRN Reason: Pain Omeprazole [PriLOSEC] 20 mg PO AC-BRKFST Bimatoprost [Lumigan .01% Ophth Soln] 1 drop RIGHT EYE HS Cranberry Fruit Extract [Cranberry] 500 mg PO DAILY Calcium Carbonate [Calcium] 1,500 mg PO DAILY Discontinued Losartan Potassium [Cozaar] 50 mg PO BID nadoloL [Corgard] 40 mg PO BID Discharge Medication List Rivaroxaban [Xarelto] 20 mg PO HS 12/31/18 [History] Bimatoprost [Lumigan .01% Ophth Soln] 1 drop RIGHT EYE HS 07/27/21 [History] Multivit with Calcium,Iron,Min [Women's Multivitamin] 1 tab PO DAILY 07/27/21 [H istory] Omeprazole [PriLOSEC] 20 mg PO AC-BRKFST 07/27/21 [History] Calcium Carbonate [Calcium] 1,500 mg PO DAILY 08/01/21 [History] Cranberry Fruit Extract [Cranberry] 500 mg PO DAILY 08/01/21 [History] Acetaminophen [Tylenol Arthritis] 650 - 1,300 mg PO BID PRN 08/17/21 [History] Furosemide [Lasix] 40 mg PO DAILY 08/17/21 [History] Amiodarone [Cordarone] 100 mg PO DAILY #90 tab 08/31/21 [Rx] Losartan [Cozaar] 50 mg PO HS #90 tab 08/31/21 [Rx] Metoprolol Succinate (ER) [Toprol Xl] 200 mg PO DAILY #90 tab 08/31/21 [Rx] Follow up Appointment(s)/Referral(s): Nura Falk MD [STAFF PHYSICIAN] - 1 Week (Device clinic in one week Follow Dr. Falk in 3 months) Activity/Diet/Wound Care/Special Instructions: Post EP study - Ablation instructions 1. Keep access sites dry for 2 days. 2. No heavy lifting or straining for 2 days. 3. Avoid bending the hips repeatedly for 2 days. 4. You may go up and down stairs slowly Call if the following is noted 1. Bleeding, increasing swelling or pain at the access sites. 2. Increasing chest discomfort, especially upon taking a deep breath. 3. Increasing shortness of breath, at rest or with exertion. 4. Undue cough / phlegm 5. Difficulty or pain while swallowing. 6. Pain or change in color in the extremities. 7. Fever, chills, rigors. 8. Increasing headache or neurologic symptoms. 9. Dizziness, fainting, palpitations Reduce Cozaar to 50 mrem once daily at noontime Stop nadolol Start Toprol-XL 200 mg by mouth daily Restart xarelto Discharge Disposition: HOME SELF-CARE
[2021-09-01] MEDS ORDERED: FUROSEMIDE 40 MG TAB PO SCH (09:00)
[2021-09-01] MEDS ORDERED: LOSARTAN 50 MG TAB PO SCH (12:00)
== END 2021-09-01 10:44 | disposition home or self-care (01) ==
LOC: CATHEP 09:42 → 6NMEDSUR 16:38 → CATHEP 09-01 10:44
PROVIDERS: ATTEND Internal Medicine Clinical Cardiac Electrophysiology
DX: I48.91 Unspecified atrial fibrillation (principal); Z20.822 Contact with and (suspected) exposure to COVID-19
CPT/HCPCS: 33214; 87635; 71045; J0690; J2001; Q9967; 33225; 33229

== ENCOUNTER → 2021-09-29 | Outpatient (CLI) | payer MEDICARE ==
[2021-09-29 18:15] LABS: HCT 40.4 % (37.2-46.3); HGB 12.5 g/dL (12.0-15.0); MCHC 30.9 g/dL (32.0-37.0); MCV 90.6 fL (80.0-97.0); NRBC Per 100 WBC 0 /100 WBCS (0.0-0.0); Platelet Count 218 X 10*3/uL (140-440); RBC 4.46 X 10*6/uL (4.10-5.20); RDW 14.2 % (11.5-14.5); WBC 6.47 X 10*3/uL (4.50-10.00)
[2021-09-29 18:24] LABS: African American GFR (CKD) 94.2 (60.0-200.0); Anion Gap 12.5 mmol/L (10.00-18.00); Blood Urea Nitrogen 11.5 mg/dL (9.0-27.0); Carbon Dioxide 24.5 mmol/L (20.0-27.5); Non-African American GFR(CKD) 81.3 (60.0-200.0); Potassium 4.7 mmol/L (3.5-5.5)
--- NOTE | 2021-09-30 11:21 | XR ---
EXAM TYPE: LUMBAR SPINE X RAY SERIES COMPARISON: NONE HISTORY: Pain TECHNIQUE: 3 views are submitted. FINDINGS: Alignment is anatomic. The pedicles are intact. The transverse processes are intact. There is diff use osteopenia with scoliotic curvature of the spine. Facet arthropathy and degenerative disc disease noted superior endplate compression fracture T11 of indeterminate age. IMPRESSION: 1. Multilevel degenerative disc disease with scoliosis. There is a superior endplate compression frac ture T11 of indeterminate age.
--- NOTE | 2021-09-30 11:28 | XR ---
EXAMINATION TYPE: XR thoracic spine complete DATE OF EXAM: 09/29/2021 COMPARISON: NONE HISTORY: Pain TECHNIQUE: 3 views submitted FINDINGS: Alignment is anatomic. There is diffuse osteopenia with kyphosis of the spine and evidence of previo us vertebroplasty. At the approximate level of T12 there is a superior endplate compression fracture of indeterminate age but likely chronic correlate clinically. Additionally there is a moderate compre ssion fracture T9. Multilevel moderate degenerative disc disease lower thoracic spine. Cardiac device is noted and ther e are surgical clips in the right upper quadrant. Coarsened interstitium of the lungs can be associat ed chronic interstitial lung disease. IMPRESSION: 1. Vertebroplasty lower thoracic spine. However, there appears to be adjacent moderate superior endpl ate compression fracture at the approximate level of T9 and a mild superior endplate compression frac ture T12. 2. Correlate for chronic interstitial lung disease or venous congestion.
[2021-09-30 13:27] LABS: Coronavirus SARS CoV-2 Not Detected (Not Detected)
== END | disposition home or self-care (01) ==
LOC: LABPAT 10:16
PROVIDERS: ATTEND Internal Medicine Clinical Cardiac Electrophysiology
DX: Z01.812 Encounter for preprocedural laboratory examination (principal); Z20.822 Contact with and (suspected) exposure to COVID-19; I48.19 Other persistent atrial fibrillation; M54.50 Low back pain, unspecified
CPT/HCPCS: 80051; 82565; 84520; 85027; 72072; 72100; U0003; U0005

== ENCOUNTER 2021-10-02 11:14 | Day surgery (SDC) | payer MEDICARE ==
[2021-09-29 13:05] VITALS: BMI 31.8
[2021-10-02] MEDS: SODIUM CHLORIDE 0.9% 1,000 ML IV SCH (11:40)
[2021-10-02] MEDS ORDERED: LIDOCAINE 1% INJ 10MG/ML (20 ML MDV) ONE (13:54)
[2021-10-02] MEDS ORDERED: MIDAZOLAM 2 MG/2 ML VIAL ONE (13:55)
[2021-10-02] MEDS ORDERED: PROPOFOL 10 MG/ML 20 ML VIAL IV ONE (13:55)
[2021-10-02] MEDS ORDERED: fentaNYL (PF) 50 MCG/ML 2 ML AMP ONE (13:55)
[2021-10-02] MEDS ORDERED: LIDOCAINE 1% INJ 10MG/ML (20 ML MDV) SQ ONE (14:26)
[2021-10-02] MEDS ORDERED: ACETAMINOPHEN TAB 325 MG TAB PO PRN (14:54)
[2021-10-02] MEDS ORDERED: BACLOFEN 10 MG TAB PO PRN (14:54)
--- NOTE | 2021-10-02 15:06 | P.EPPROC ---
- EP Procedure Note Electrophysiology Procedure Note: - EP Procedure Note Electrophysiology Procedure Note: Procedure: Device interrogation with reprogramming prior to the procedure Cardioversion for atrial fibrillation AV Node Ablation/modification. Device interrogation with reprogramming postprocedure Patient was brought to the EP lab in a fasting state. Written, informed consent was obtained prior to the procedure. Access was obtained, sheath placed in right femoral vein. 1. Preprocedure device interrogation and reprogramming Device interrogation with reprogramming performed. Rate responsiveness was turned off and the pacing rate was reprogrammed to a backup mode prior to ablation. Tachycardia detections turned off. Lead impedance is documented, sensing and pacing thresholds performed prior to the procedure Backup pacing, VVI 40 bpm 2. Electrical cardioversion A 200 J biphasic shock was used to cardiovert the patient to sinus rhythm Thereafter mapping of the AV node was performed, His bundle identified and RF ablation performed Patient was on therapeutic anticoagulation 3. AV node ablation A Mapping/Ablation catheter was placed and right-sided AV node radiofrequency ablation/modification was performed. Complete heart block was achieved with occasional junctional escape rhythm above 40 bpm 4. Device programming postprocedure Atrial pacing threshold 1 warted 0.4 ms. Impedance is stable at 475 ohms RV pacing threshold 1 V at 0.4 ms, pacing impedance 637 ohms LV pacing threshold 1.75 V at 1 ms, pacing impedance of 741 ohms Post ablation, device reprogramming was performed. Base Pacing rate was programmed to 90 bpm. Patient's device was reprogrammed and the interrogated. RF mode turned on Vascular sheaths were removed at the end of the procedure, hemostasis was assured, the patient was then transferred to recovery room/telemetry in stable condition. Conclusions: Successful ablation of the AV node. Plan: Pacing at DDDR 90-130 bpm for at least weeks. Telemetry monitoring for 24 hours. Continue anticoagulation. Patient tolerated the procedure well without any acute complications
--- NOTE | 2021-10-02 15:10 | P.PRLE ---
RE: MurilloGinny N Dear Shirin Ginny Murillo had undergone upgrade to a biventricular pacemaker Today she underwent AV node ablation and electrical cardioversion Hopefully this results in improvement in her symptoms since she was experiencing A. fib with RVR despite medical treatment and ablation I have reduced her dose of amiodarone 2 100 mg by mouth daily She will continue all other cardiac medications including Rivaroxaban She will follow with you and Dr. Falk as before Thank you for entrusting me with the care of the patient Warm regards Sincerely Eulalio Cordon
[2021-10-02] MEDS ORDERED: ACETAMINOPHEN IV (For NPO) 1,000 MG in EMPTY BAG 1 BAG IVPB ONE (15:30)
[2021-10-02] MEDS: LACTATED RINGERS 1,000 ML IV SCH (16:10)
[2021-10-02] MEDS: AMIODARONE 200 MG TAB PO SCH (20:01)
[2021-10-02] MEDS ORDERED: LOSARTAN 50 MG TAB PO SCH (21:00)
[2021-10-02] MEDS ORDERED: RIVAROXABAN 20 MG TAB PO SCH (21:00)
[2021-10-02] MEDS ORDERED: LATANOPROST 0.005% OPHTH DROPS 2.5 ML BTL RIGHT EYE SCH (21:00)
[2021-10-02] MEDS ORDERED: RIVAROXABAN 10 MG TAB PO SCH (21:00)
[2021-10-03 07:16] VITALS: BP 152/80; PULSE 92; RESP 18; TEMP 98
[2021-10-03] MEDS: AMIODARONE 200 MG TAB PO SCH (08:41)
[2021-10-03] MEDS ORDERED: FUROSEMIDE 40 MG TAB PO SCH (09:00)
[2021-10-03] MEDS ORDERED: METOPROLOL SUCCINATE (ER) 100 MG TAB.ER.24H PO SCH (09:00)
[2021-10-03] MEDS: LACTATED RINGERS 1,000 ML IV SCH (09:34)
[2021-10-03] MEDS: SODIUM CHLORIDE 0.9% 1,000 ML IV SCH (09:34)
--- NOTE | 2021-10-03 11:16 | P.CRDCN ---
History of Present Illness Consult date: 10/03/21 History of present illness: This is an 81-year-old female who underwent device interrogation with reprogramming prior to procedure, cardioversion for atrial fibrillation, AV mamie ablation/modification, and device interrogation with repeat programming post procedure. The patient is doing well postoperatively with no immediate competitions noted. Vital signs are stable. She is hemodynamically stable. She was deemed stable for discharge home today per Dr. Doherty. She is to follow up on an outpatient basis. Discharge diagnosis 1. Paroxysmal atrial fibrillation status post ablation and cardioversion Nurse practitioner note has been reviewed by physician. Signing provider agrees with the documented findings, assessment, and plan of care. Past Medical History Past Medical History: Atrial Fibrillation, Cancer, Heart Failure, Eye Disorder, GERD/Reflux, Hypertension, Musculoskeletal Disorder, Rheumatoid Arthritis (RA) Additional Past Medical History / Comment(s): skin cancer, chronic back pain/herniated/hairline fractures/osteoporosis, Hx. of UTI's last year. glaucoma right eye., gynecology teacher told her spine is collapsing and she has lost 30% of her lung capacity, scarring on lungs., sob with activity., dysphagia. See Dr. Cordon's H&P. History of Any Multi-Drug Resistant Organisms: None Reported Past Surgical History: Back Surgery, Cardiac Ablation, Cholecystectomy, Pacemaker Additional Past Surgical History / Comment(s): 2019 cardiac ablation, 2016 [employer] pacemaker., kyphoplasty, colonoscopy, skin cancer removal, bilateral cataract surgery,EGD. See Dr. Cordon's H&P. Past Anesthesia/Blood Transfusion Reactions: No Reported Reaction Additional Past Anesthesia/Blood Transfusion Reaction / Comment(s): Pt has slight clausterphobia. Type of Cardiac Device: Biventricular Pacemaker Device Placement Date:: 08-31-21 Smoking Status: Never smoker - Past Family History Mother Family Medical History: CVA/TIA Additional Family Medical History / Comment(s): BLOOD CLOT IN THE BRAIN, AT AGE 61. Daughter(s) Family Medical History: Cancer Additional Family Medical History / Comment(s): MELANOMA & SQUAMOUS CELL CANCER Father Family Medical History: Respiratory Disorder Additional Family Medical History / Comment(s): Father of black lung. He work in the [employer]. Medications and Allergies Home Medications Medication Instructions Recorded Confirmed Type Rivaroxaban [Xarelto] 20 mg PO HS 12/31/18 10/02/21 History Bimatoprost [Lumigan 0.01% Ophth 1 drop RIGHT EYE HS 07/27/21 10/02/21 History Soln] Multivit with Calcium,Iron,Min 1 tab PO DAILY 07/27/21 10/02/21 History [Women's Multivitamin] Calcium Carbonate [Calcium] 1,500 mg PO DAILY 08/01/21 10/02/21 History Cranberry Fruit Extract [Cranberry] 500 mg PO DAILY 08/01/21 10/02/21 History Acetaminophen [Tylenol Arthritis] 650 - 1,300 mg PO BID PRN 08/17/21 10/02/21 History Furosemide [Lasix] 40 mg PO DAILY 08/17/21 10/02/21 History Losartan [Cozaar] 50 mg PO HS #90 tab 08/31/21 10/02/21 Rx Acetaminophen-Codeine 300-30mg 0.5 tab PO Q6H PRN 09/29/21 10/02/21 History [Tylenol w/codeine #3] Baclofen 5 mg PO BID PRN 09/29/21 10/02/21 History Losartan Potassium [Cozaar] 50 mg PO BID 09/29/21 10/02/21 History Metoprolol Succinate (ER) [Toprol 100 mg PO DAILY 09/29/21 10/02/21 History Xl] Pantoprazole Sodium [Protonix] 40 mg PO DAILY 09/29/21 10/02/21 History Amiodarone [Cordarone] 100 mg PO DAILY #180 tab 10/02/21 Rx Allergies Allergy/AdvReac Type Severity Reaction Status Date / Time etodolac [From [facility]] Allergy Rash/Hives Verified 10/02/21 11:25 Physical Exam Vitals: Vital Signs Temp Pulse Pulse Resp BP Pulse Ox 10/03/21 07:15 98.0 F 92 18 152/80 94 L 10/03/21 01:34 97.6 F 89 16 123/75 93 L 10/02/21 20:00 89 16 10/02/21 19:08 97.7 F 89 16 137/78 93 L 10/02/21 19:00 89 16 137/78 10/02/21 18:00 89 18 132/76 96 10/02/21 17:00 88 18 130/78 91 L 10/02/21 16:30 89 18 133/78 95 10/02/21 16:00 88 18 137/78 94 L 10/02/21 15:45 89 18 128/77 94 L 10/02/21 15:30 89 18 128/76 89 L 10/02/21 15:15 97.7 F 88 18 132/76 96 10/02/21 11:39 98.1 F 73 16 149/96 95 Intake and Output 10/02/21 10/03/21 10/03/21 22:59 06:59 14:59 Other: # Voids 1 Weight 91.6 kg Results Intake and Output 10/02/21 10/03/21 10/03/21 22:59 06:59 14:59 Other: # Voids 1 Weight 91.6 kg
== END 2021-10-03 10:17 | disposition home or self-care (01) ==
LOC: CATHEP 11:14 → 6NMEDSUR 14:58 → CATHEP 10-03 10:17
PROVIDERS: ATTEND Internal Medicine Clinical Cardiac Electrophysiology
DX: I48.0 Paroxysmal atrial fibrillation (principal); Z95.0 Presence of cardiac pacemaker
CPT/HCPCS: 92960; 93650; C1894; C1769 ×2; C1760; C1893; C1732; J2250; J2001; J3010; J2704

== ENCOUNTER 2022-02-21 09:02 | Day surgery (SDC) | payer MEDICARE ==
[2022-02-19 10:48] VITALS: BMI 31.3
[~2022-02-21 09:02] MED LIST changes: +LACTATED RINGERS 1,000 ML IV SCH; +LIDOCAINE 1% (10MG/ML) FOR IV START INTRADERMA PRN; -SODIUM CHLORIDE 0.9% 1,000 ML IV SCH; -ceFAZolin 1 GM in SODIUM CHLORIDE 0.9% IRRIG BTL 250 ML IRRIGATION PRN
[2022-02-21 09:32] VITALS: TEMP 97.1
[2022-02-21] MEDS ORDERED: LIDOCAINE 2% INJ 20 MG/ML (2 ML VIAL) ONE (10:45)
[2022-02-21] MEDS ORDERED: PROPOFOL 10 MG/ML 20 ML VIAL IV ONE (10:45)
--- NOTE | 2022-02-21 10:58 | P.PCN ---
Date of Procedure: 02/21/22 Procedure(s) Performed: BRIEF HISTORY: Patient is a 81-year-old, pleasant, white female scheduled for an upper endoscopy as a part of evaluation of long-standing history of GERD and intermittent dysphagia to solids. PROCEDURE PERFORMED: Esophagogastroduodenoscopy with biopsy and dilation. PREOPERATIVE DIAGNOSIS: Functioning history of GERD and intermittent dysphagia to solids. IV sedation per anesthesia. PROCEDURE: After informed consent was obtained, the patient was brought into the endoscopy unit. IV sedation was administered by Anesthesia under continuous monitoring. Initially the Olympus GIF-140 video endoscope was inserted into the mouth. Esophagus intubated without any difficulty. It was gradually advanced into the stomach and duodenum and carefully examined. The bulb and the second part of the duodenum appeared normal. The scope at this time was withdrawn to the stomach, adequately insufflated with air, and upon careful examination, mucosa of the antrum, had mild gastritis and biopsies were done from this area. The body, cardia and the fundus appeared normal. The scope was then withdrawn into the esophagus. The GE junction was located at 39 cm from the incisors. There was mild narrowing of the GE junction consistent with distal esophageal stricture that was dilated using 15-18 mm TTS balloon in a sequential fashion for 60 seconds. The rest of the esophagus appeared normal. There were no erosions or ulcerations seen , biopsies were done from the distal esophagus and the patient tolerated the procedure well. IMPRESSION: 1. Distal esophageal stricture status post balloon dilation using 15-18 mm TTS balloon as described above. 2. Mild antral gastritis. RECOMMENDATIONS: The findings of this examination were discussed with the patient as well as a family. She was advised to increase the omeprazole to 20 mg twice daily and follow antireflux measures. She'll remain on a clear liquid diet for lunch today..
[2022-02-21 11:19] VITALS: BP 152/81; PULSE 60; RESP 16
== END 2022-02-21 11:50 | disposition home or self-care (01) ==
LOC: ORWHC2ENDO 09:02
PROVIDERS: ATTEND Internal Medicine Gastroenterology
DX: K22.2 Esophageal obstruction (principal); K29.50 Unspecified chronic gastritis without bleeding; K21.9 Gastro-esophageal reflux disease without esophagitis; I10 Essential (primary) hypertension; I48.91 Unspecified atrial fibrillation; Z95.0 Presence of cardiac pacemaker; Z79.899 Other long term (current) drug therapy; Z79.01 Long term (current) use of anticoagulants; Z88.6 Allergy status to analgesic agent; Z80.8 Family history of malignant neoplasm of other organs or systems; Z82.3 Family history of stroke; Z83.6 Family history of other diseases of the respiratory system; Z82.49 Family history of ischemic heart disease and other diseases of the circulatory system
CPT/HCPCS: 88305; 43239; 43249; J2704; J2001; C1726

== ENCOUNTER → 2022-03-19 | Outpatient (CLI) | payer MEDICARE ==
--- NOTE | 2022-03-19 11:00 | BD ---
EXAMINATION TYPE: Axial Bone Density DATE OF EXAM: 03/19/2022 COMPARISON: NONE CLINICAL HISTORY: 82 years year old Female. ICD-10 CODE: M81.0 AGE RELATED OSTEOPOROSIS Height: 64 Weight: 206.6 FRAX RISK QUESTIONS: Alcohol (3 or more units per day): NO Family History (Parent hip fracture): NO Glucocorticoids (More than 3mos): NO History of Fracture in Adulthood: YES Secondary Osteoporosis: 1. Type 1 Diabetes: NO 2. Hyperthyroidism: NO 3. Menopause before 45: NO 4. Malnutrition: NO 5. Chronic liver disease: NO Rheumatoid Arthritis: NO Current Tobacco Use: NO RISK FACTORS HISTORY OF: Hip Fracture (Right/Left): NO Spine Fracture: YES When: 2021 History of Wrist Fracture: LT When: AGE 65 Surgery to Spine/Hip(right/left)/Wrist (right/left): YES T4 When: 2019 Family History of Osteoporosis: SISTER Active: NO Diet low in dairy products/other sources of calcium: NO Postmenopausal woman: YES Take estrogen and/or progesterone medications: NO Lost more than 2 inches in height since high school: YES Frequent falls: NO Poor Health: YES Hyperparathyroidism: NO Adrenal Insufficiency: NO MEDICATIONS: Prednisone or other steroids: NO Thyroid Medications: NO Osteoporosis Medications: NO Additional Medications: LOSARTAN, REFLUX MEDS, CALCIUM, VIT D. Additional History: EXAM MEASUREMENTS: Bone mineral densitometry was performed using the iovox System. Bone mineral density as measured about the Lumbar spine is: ----- L1-L4(G/cm2): 0.996 T Score Values are as follows: ----- L1: -2.3 ----- L2: -2.3 ----- L3: -0.9 ----- L4: -1.1 ----- L1-L4: -1.5 BASELINE STUDY Bone mineral density about the R hip (g/cm2): 0.710 Bone mineral density about the L hip (g/cm2): 0.717 T Score values are as follows: -----R Neck: -2.4 -----L Neck: -2.3 -----R Total: -1.6 -----L Total: -1.6 BASELINE STUDY FRAX%s: The graph provided illustrates a 23.6% chance for a major osteoporotic fx and a 7.3% chance f or the hips probability for fx in 10 years time. IMPRESSION: Osteopenia (T Score between -2.5 and -1). There is slightly increased risk of fracture and the patient may be considered for treatment. Re-Screen 2-5 years. NOTE: T-SCORE=SD OF THE YOUNG ADULT MEAN.
== END | disposition home or self-care (01) ==
LOC: RADBDWWP 09:36
PROVIDERS: ATTEND Internal Medicine Geriatric Medicine
DX: M85.89 Other specified disorders of bone density and structure, multiple sites (principal); Z78.0 Asymptomatic menopausal state
CPT/HCPCS: 77080

== ENCOUNTER → 2022-11-06 | Outpatient (CLI) | payer MEDICARE ==
[2022-11-06 16:11] LABS: HCT 43.9 % (37.2-46.3); HGB 13.5 g/dL (12.0-15.0); MCH 27.2 pg (27.0-32.0); MCHC 30.8 g/dL (32.0-37.0); MCV 88.5 fL (80.0-97.0); Mean Platelet Volume 9.1 fL (9.5-12.2); NRBC Per 100 WBC 0 /100 WBCS (0.0-0.0); Platelet Count 193 X 10*3/uL (140-440); RBC 4.96 X 10*6/uL (4.10-5.20); RDW 15.4 % (11.5-14.5); WBC 6.37 X 10*3/uL (4.50-10.00)
[2022-11-06 16:16] LABS: Anion Gap 12.3 mmol/L (10.00-18.00); Blood Urea Nitrogen 14.2 mg/dL (9.0-27.0); Carbon Dioxide 26.7 mmol/L (20.0-27.5); Potassium 5.3 mmol/L (3.5-5.5)
[2022-11-06 16:17] LABS: African American GFR (CKD) 93.5 (60.0-200.0); Non-African American GFR(CKD) 80.7 (60.0-200.0)
== END | disposition home or self-care (01) ==
LOC: LABPAT 11:16
PROVIDERS: ATTEND Internal Medicine
DX: Z01.812 Encounter for preprocedural laboratory examination (principal); I50.22 Chronic systolic (congestive) heart failure
CPT/HCPCS: 80051; 82565; 84520; 85027

== ENCOUNTER 2022-11-13 06:35 | Day surgery (SDC) | payer MEDICARE ==
[~2022-11-13 06:35] MED LIST changes: +ALPRAZolam 0.25 MG TAB PO PRN; +ALPRAZolam 0.5 MG TAB PO PRN; -LACTATED RINGERS 1,000 ML IV SCH; -LIDOCAINE 1% (10MG/ML) FOR IV START INTRADERMA PRN; +NITROGLYCERIN SL TABS 0.4 MG TAB SUBLINGUAL PRN; +SODIUM CHLORIDE 0.9% 1,000 ML in EMPTY BAG 1 BAG IV SCH
[2022-11-13] MEDS ORDERED: SODIUM CHLORIDE 0.9% 1,000 ML IV ONE (06:41)
[2022-11-13] MEDS ORDERED: ASPIRIN 325 MG TAB PO STA (06:53)
[2022-11-13 07:07] VITALS: RESP 16; TEMP 97.6
[2022-11-13] MEDS ORDERED: VERAPAMIL 2.5 MG/ML 2 ML AMP ONE (07:27)
[2022-11-13] MEDS ORDERED: fentaNYL (PF) 50 MCG/ML 2 ML AMP ONE (07:30)
[2022-11-13] MEDS ORDERED: HEPARIN SODIUM 1,000 UN/ML (10ML VL) ONE (07:31)
[2022-11-13] MEDS ORDERED: IV FLUID CONTINUATION 1,000 ML IV ONE (07:31)
[2022-11-13] MEDS: BENZOCAINE SPRAY 1 CAN MUCOUS MEM ONE ×2 (07:36→07:40)
[2022-11-13] MEDS: fentaNYL (PF) 50 MCG/1 ML VIAL IVP ONE ×2 (07:40→07:44)
[2022-11-13] MEDS: MIDAZOLAM 2 MG/2 ML VIAL IVP ONE ×2 (07:40→07:43)
[2022-11-13] MEDS ORDERED: HEPARIN SODIUM 1,000 UN/ML (10ML VL) IVP ONE (08:20)
[2022-11-13] MEDS ORDERED: IOPAMIDOL-300 100ML BTL INJ ONE (08:29)
[2022-11-13 08:30] LABS: O2 Sat Blood Gas 75.8 %
[2022-11-13 08:33] LABS: O2 Sat Blood Gas 70.2 %
[2022-11-13 19:24] VITALS: BP 127/64; PULSE 77
--- NOTE | 2022-11-13 22:38 | P.CARDCATH ---
Description of Procedure: PROCEDURES PERFORMED: Left and right heart catheterization, bilateral coronary angiography INDICATION: Dyspnea on exertion concerning for cardiac etiology, mitral regurgitation CONSENT:I have discussed the risks, benefits and alternative therapies for the above-mentioned procedure and for both sedation/analgesia as well as necessary blood product administration, if indicated, as they pertain to this patient. The patient has indicated understanding and acceptance of the risks and procedures discussed. PROCEDURE: After the risks, benefits and alternatives of the above mentioned procedure explained in detail with the patient, informed consent was obtained. Patient was taken to the catheterization lab and prepped and draped in usual fashion. 1% lidocaine was used to anesthetize the right radial artery. A 6- Barbadian sheath was placed in the right radial artery using modified Seldinger technique. An additional 6Fr sheath was placed in the right brachial vein using modified Seldinger technique and ultrasound. A 5Fr [place] Deandre catheter was inserted into the RA, RV, PA and PCWP positions and pressure measurement and O2 sats were obtained. Left coronary angiography was performed with a 5-Barbadian JL 3.5 catheter and right coronary angiography was performed with a 5-Barbadian JR5 catheter in various views. A 5-Barbadian FR5 catheter was inserted into the left ventricle and pressure measurements were obtained. The right radial sheath was removed and a TR band was placed with hemostasis achieved. The patient tolerated the procedure well. Patient was transported back to the post catheterization holding area in stable condition. Conscious Sedation: Patient was monitored under the direct supervision of myself for conscious sedation using Versed and fentanyl for a total duration of 29 minutes Aorta: 142/90 LV: 128/4, LVEDP 10 RA: 5 RV: 45/4 PA: 46/20 (31) PCWP: 15 with V wave of 25 PA oxygen sat: 76% RA oxygen sat: 70% Right radial oxygen sat: 91% Cardiac outpt JENNIFER: 7.9 L/min Cardiac index JENNIFER: 4.0 L/min/m2 Cardiac outpt thermodilution: 5.2 L/min Cardiac index thermodilution: 2.6 L/min/m2 SELECTIVE CORONARY ARTERIOGRAPHY: LEFT MAIN: The left main is a large caliber vessel which gives rise to the LAD with the circumflex coming off the RCA. There is no significant stenosis. LEFT ANTERIOR DESCENDING CORONARY ARTERY: LAD is a large caliber vessel which wraps around to the apex. There is mild mid LAD 20-30% stenosis and otherwise normal. RIGHT CORONARY ARTERY: The right coronary artery is a large caliber vessel which gives off a PDA and PLV branch and is the dominant vessel. There are mild luminal irregularities up to 20-30% mid RCA stenosis. There is an anomolous circumflex off the proximal RCA without significant stenosis. FINAL IMPRESSION: 1. Mild CAD with 20-30% mid LAD and 20-30% mid RCA stenosis. 2. Anomolous circumflex off the RCA 3. Normal left and right sided filling pressures 4. Normal cardiac outpt/ cardiac index PLAN: 1. Aggressive risk factor modification per most recent ACC/AHA guidelines. 2. Follow-up in the office in 1-2 weeks.
--- NOTE | 2022-11-13 22:46 | P.TEE ---
Description of Procedure(s): Procedure performed: Transesophageal Echocardiogram with color flow doppler, pulsed wave doppler and continuous wave doppler Moderate conscious sedation: Moderate conscious sedation was supplied with Versed and Fentanyl Complications: none Indications: Moderate to severe mitral regurgitation, tricuspid regurgitation PROCEDURE: After the risks, benefits and alternatives of the above mentioned procedure was explained in detail with the patient, informed consent was obtained. Patient was brought to the lab in a fasting state. Patient was given sedation with Versed and Fentanyl. The throat was sprayed with Hurricane to anesthetize the throat. A lubricated Omni probe was then introduced into the esophagus and stomach and multiple views were obtained. 2D echo with color flow doppler, pulsed wave doppler and continuous wave doppler was utilized. Agitated saline bubbles were injected to assess for any intra-atrial shunt. The probe was then removed. Patient tolerated the procedure well. Patient was transferred to the post procedure area in stable and satisfactory condition. FINDINGS: 1. The aortic valve is tricuspid and functioning normally with mild aortic insufficiency. 2. The mitral valve appears be normal with moderate central mitral regurgitation. Systolic blunting of 2 pulmonary veins however no flow reversal. 3. Tricuspid valve appears to be normal with severe tricuspid regurgitation. 4. There is a PFO. 5. Left ventricular size and function appear to be low normal with left ventricular ejection fraction 50% 6. Moderately dilated left atrium. 7. Pacemaker leads in RV and RA
== END 2022-11-13 12:31 | disposition home or self-care (01) ==
LOC: CATHCVL 06:35
PROVIDERS: ATTEND Internal Medicine
DX: I25.10 Atherosclerotic heart disease of native coronary artery without angina pectoris (principal); I08.3 Combined rheumatic disorders of mitral, aortic and tricuspid valves; Q21.12 Patent foramen ovale; Z95.0 Presence of cardiac pacemaker; I49.5 Sick sinus syndrome; I48.20 Chronic atrial fibrillation, unspecified; I11.0 Hypertensive heart disease with heart failure; I50.22 Chronic systolic (congestive) heart failure; I42.9 Cardiomyopathy, unspecified; E78.5 Hyperlipidemia, unspecified; E66.9 Obesity, unspecified; Z68.29 Body mass index [BMI] 29.0-29.9, adult; Z79.01 Long term (current) use of anticoagulants; Z79.899 Other long term (current) drug therapy
CPT/HCPCS: 93460; 93312; 93320; 93325; 99152; 99153; 85018; 82810; C1769 ×2; C1894; C1751; J2250; J1644; Q9967; J3010

== ENCOUNTER → 2023-02-04 | Outpatient (CLI) | payer MEDICARE ==
--- NOTE | 2023-02-04 14:46 | CT ---
EXAMINATION TYPE: CT chest wo con DATE OF EXAM: 02/04/2023 COMPARISON: 08/02/2021 HISTORY: fibrosis? CT DLP: 417.3 mGycm. Automated Exposure Control for Dose Reduction was Utilized. TECHNIQUE: CT scan of the thorax is performed without IV contrast. FINDINGS: LUNGS: Groundglass changes are seen bilaterally with subsegmental areas of consolidation bilaterally most likely in the basis of atelectasis. There is mild diffuse centrilobular emphysema.. Stable inter lobular septal thickening compatible with mild interstitial pulmonary fibrosis. No pneumothorax. 3 mm subpleural nodule left upper lobe too small to characterize. There is mild basilar and central bronchiectasis. A 2 mm subpleural nodule left upper lobe image 24 series 4. Stable. 2 mm nodule image 15 series 9 MEDIASTINUM: Lack of IV contrast is noted to limit evaluation for mediastinal and especially hilar ad enopathy. There are no definitive greater than 1 cm hilar or mediastinal lymph nodes. The heart is enlarged and there is coronary artery calcification. Atherosclerotic change aorta. Shotty adenopathy seen throughout the mediastinum and hilum. Cardiac device and leads are incidentally noted. OTHER: Hypertrophic and degenerative changes of the spine. Compression deformities are seen througho ut the thoracic spine with evidence of previous vertebroplasty. There is surgical clips in the gallbl adder fossa. Small hiatal hernia. IMPRESSION: 1. Centrilobular emphysema with findings suggestive of mild basilar interstitial pulmonary fibrosis s table. 2. Cardiomegaly with coronary artery calcifications. 3. Benign 2 mm subpleural nodule left upper lobe. Twelve-month follow-up could be obtained to confirm stability.
== END | disposition home or self-care (01) ==
LOC: RADCTMAIN 14:06
PROVIDERS: ATTEND Internal Medicine Critical Care Medicine
DX: J43.2 Centrilobular emphysema (principal); I25.10 Atherosclerotic heart disease of native coronary artery without angina pectoris; I51.7 Cardiomegaly; R91.1 Solitary pulmonary nodule; R06.09 Other forms of dyspnea
CPT/HCPCS: 71250

== ENCOUNTER → 2023-02-22 | Outpatient (CLI) | payer MEDICARE ==
--- NOTE | 2023-02-22 12:25 | CT ---
EXAMINATION TYPE: CT lumbar spine wo con DATE OF EXAM: 02/22/2023 COMPARISON: None HISTORY: 82-year-old female M5 1.36 chronic lower back pain, intervertebral disc degeneration of lumb ar region TECHNIQUE: Contiguous axial scanning of the lumbar spine without IV contrast. Coronal and sagittal re constructions performed. CT DLP: 1019.2 mGycm Automated exposure control for dose reduction was used. FINDINGS: 3 cardiac pacer leads noted. There is osteopenia. Superior and plate deformity of T11 has a chronic appearance. No paravertebral soft tissue swelling. Advanced hypertrophic facet arthropathy mid to lower lumbar spine particularly towards the left. There is trace grade 1 retrolisthesis L1-L2. Remaining alignment is maintained. Mild multilevel degenerative disc disease with mild disc bulging. No large focal disc herniation or s ignificant spinal canal stenosis is seen. Degenerative changes are more severe towards the left L5-S1 with a complete loss of disc space and prominent endplate spondylosis here due to a leftward truncal shift. On the left, changes result in moderate to severe foraminal stenosis at L5-S1 and mild at L4-L5. On the right, changes resulting mild to moderate neuroforaminal narrowing at L4-L5 and mild at L3-L4 and L5-S1. IMPRESSION: 1. CHRONIC-APPEARING MILD SUPERIOR ENDPLATE DEFORMITY OF T11. 2. ADVANCED HYPERTROPHIC FACET ARTHROPATHY MID TO LOWER LUMBAR SPINE ESPECIALLY TOWARDS THE LEFT. TRA CE DEGENERATIVE GRADE 1 RETROLISTHESIS L1-L2. 3. THERE IS ALSO A LEFTWARD TRUNCAL SHIFT LIKELY DUE TO A SLIGHT LEVOCONVEX SCOLIOSIS HIGHER UP. THIS RESULTS IN SEVERE DISC/ENDPLATE DEGENERATIVE CHANGE TOWARDS THE LEFT AT L5-S1. 4. MODERATE TO SEVERE LEFT NEUROFORAMINAL STENOSIS AT L5-S1. MILD TO MODERATE ON THE RIGHT AT L4-L5. MILD AT ADDITIONAL LEVELS OUTLINED ABOVE.
== END | disposition home or self-care (01) ==
LOC: RADCTMAIN 09:29
PROVIDERS: ATTEND Orthopaedic Surgery Orthopaedic Surgery of the Spine
DX: M51.36 Other intervertebral disc degeneration, lumbar region (principal); M47.817 Spondylosis without myelopathy or radiculopathy, lumbosacral region; S22.060D Wedge compression fracture of T7-T8 vertebra, subsequent encounter for fracture with routine healing; S22.080D Wedge compression fracture of T11-T12 vertebra, subsequent encounter for fracture with routine healing; M47.814 Spondylosis without myelopathy or radiculopathy, thoracic region; M62.830 Muscle spasm of back; M99.73 Connective tissue and disc stenosis of intervertebral foramina of lumbar region; M51.37 Other intervertebral disc degeneration, lumbosacral region; M43.16 Spondylolisthesis, lumbar region
CPT/HCPCS: 72131

== ENCOUNTER → 2023-03-12 | Outpatient (CLI) | payer MEDICARE ==
--- NOTE | 2023-03-13 08:24 | MM ---
Reason for Exam: Screening (asymptomatic). Patient History: Menarche at age 12. First Full-Term at age 23. Postmenopausal. Risk Values: Yaa 5 year model risk: 1.3%. NCI Lifetime model risk: 1.7%. Tissue Density: There are scattered fibroglandular densities. Findings: Analyzed By CAD. There is no suspicious group of microcalcifications or new suspicious mass in either breast. Overall Assessment: Negative, BI-RAD 1 Management: Screening Mammogram of both breasts in 1 year. . Patient should continue monthly self-breast exams. A clinical breast exam by your physician is recommended on an annual basis. This exam should not preclude additional follow-up of suspicious palpable abnormalities. Note on Yaa scores and lifetime risk: 1. A Yaa score greater than 3% is considered moderate risk. If this is the case, consider specialist referral to assess eligibility for a risk reducing agent. 2. If overall lifetime risk for the development of breast cancer is 20% or higher, the patient may qualify for future screening with alternating mammogram and breast MRI. Electronically signed and approved by: Thierno Pennington M.D. Radiologis
== END | disposition home or self-care (01) ==
LOC: RADMAMWWP 10:34
PROVIDERS: ATTEND Internal Medicine Geriatric Medicine
DX: Z12.31 Encounter for screening mammogram for malignant neoplasm of breast (principal); Z78.0 Asymptomatic menopausal state
CPT/HCPCS: 77063; 77067

== ENCOUNTER 2023-12-23 12:51 | Emergency (ER) | payer MEDICARE ==
[2023-12-23 13:31] VITALS: TEMP 97.5
--- NOTE | 2023-12-23 13:36 | ED ---
General Adult HPI - General Chief complaint: Back Pain/Injury Stated complaint: Back pain Time Seen by Provider: 12/23/23 13:10 Source: patient, RN notes reviewed, old records reviewed Mode of arrival: ambulatory Limitations: no limitations - History of Present Illness Initial comments: This is an 83-year-old female who presents to the emergency department complaining of back pain over the last couple days patient states it radiates into her right hip, right side of her lower back. Patient denies any injury or trauma. Patient states she has had longstanding back issues for many years. Patient is any fever or chills. Patient has any dysuria hematuria urinary frequency. - Related Data Home Medications Medication Instructions Recorded Confirmed Rivaroxaban [Xarelto] 20 mg PO HS 12/31/18 11/13/22 Bimatoprost [Lumigan 0.01% Ophth 1 drop RIGHT EYE HS 07/27/21 11/13/22 Soln] Multivit with Calcium,Iron,Min 1 tab PO QAM 07/27/21 11/13/22 [Women's Multivitamin] Calcium Carbonate [Calcium] 1,500 mg PO QAM 08/01/21 11/13/22 Cranberry Fruit Extract [Cranberry] 200 mg PO QAM 08/01/21 11/13/22 Acetaminophen [Tylenol Arthritis] 650 - 1,300 mg PO DAILY PRN 08/17/21 11/13/22 Losartan Potassium [Cozaar] 50 mg PO BID 09/29/21 11/09/22 Metoprolol Succinate (ER) [Toprol 100 mg PO QAM 09/29/21 11/09/22 Xl] Cholecalciferol [Vitamin D3 (25 50 mcg PO QAM 02/19/22 11/13/22 Mcg = 1000 Iu)] Metoprolol Succinate [Toprol XL] 50 mg PO PC-SUPPER 02/19/22 11/13/22 Omeprazole [PriLOSEC] 20 mg PO AC-BRKFST 02/19/22 11/09/22 Previous Rx's Medication Instructions Recorded predniSONE [Deltasone] 40 mg PO DAILY #8 tab 12/23/23 Allergies Allergy/AdvReac Type Severity Reaction Status Date / Time etodolac [From [facility]] Allergy Rash/Hives Verified 12/23/23 13:12 Review of Systems ROS Statement: Those systems with pertinent positive or pertinent negative responses have been documented in the HPI. ROS Other: All systems not noted in ROS Statement are negative. Past Medical History Past Medical History: Atrial Fibrillation, Cancer, Heart Failure, Eye Disorder, GERD/Reflux, Hypertension, Rheumatoid Arthritis (RA) Additional Past Medical History / Comment(s): Skin cancer with removals, chronic back pain/herniated/hairline fractures/osteoporosis, glaucoma right eye., dog show judge told her spine is collapsing and she has lost 30% of her bilateral lung capacity, scarring on lungs., sob with activity., past dysphagia, palpitations, hx ulcer, poor appetite History of Any Multi-Drug Resistant Organisms: None Reported Past Surgical History: Back Surgery, Cardiac Ablation, Cholecystectomy, Pacemaker Additional Past Surgical History / Comment(s): Cardiac ablations, cardioversion, medtronic pacemaker "dependent" per pt., kyphoplasty, colonoscopy, skin cancer removal, bilateral cataract surgery, EGD with esophageal stent. Past Anesthesia/Blood Transfusion Reactions: No Reported Reaction Additional Past Anesthesia/Blood Transfusion Reaction / Comment(s): Pt has "slight claustrophobia". Pt has never received a blood transfusion. Type of Cardiac Device: Permanent Pacemaker Device Placement Date:: 08/2021 medtronic Past Psychological History: No Psychological Hx Reported Smoking Status: Never smoker Past Alcohol Use History: None Reported Past Drug Use History: None Reported - Past Family History Mother Family Medical History: CVA/TIA Additional Family Medical History / Comment(s): BLOOD CLOT IN THE BRAIN, AT AGE 61. Daughter(s) Family Medical History: Cancer Additional Family Medical History / Comment(s): MELANOMA & SQUAMOUS CELL CANCER Father Family Medical History: Respiratory Disorder Additional Family Medical History / Comment(s): Father of black lung. He work in the [employer]. General Exam - General Exam Comments Initial Comments: GENERAL: Patient is well-developed and well-nourished. Patient is nontoxic and well- hydrated and is in mild distress. ENT: Neck is soft and supple. No significant lymphadenopathy is noted. Oropharynx is clear. Moist mucous membranes. Neck has full range of motion without eliciting any pain. EYES: The sclera were anicteric and conjunctiva were pink and moist. Extraocular movements were intact and pupils were equal round and reactive to light. Eyelids were unremarkable. SKIN: Skin is clear with no lesions or rashes and otherwise unremarkable. NEUROLOGIC: Patient is alert and oriented x3. Cranial nerves II through XII are grossly intact. Motor and sensory are also intact. Normal speech, volume and content. Symmetrical smile. MUSCULOSKELETAL: Normal extremities with adequate strength and full range of motion. No lower extremity swelling or edema. No calf tenderness. Patient has straight leg test on the right side at about 30 degrees. Patient has no perineum numbness LYMPHATICS: No significant lymphadenopathy is noted PSYCHIATRIC: Normal psychiatric evaluation. Limitations: no limitations Course Vital Signs 12/23/23 13:08 Temperature 97.5 F L Pulse Rate 61 Respiratory 16 Rate Blood Pressure 138/84 O2 Sat by Pulse 97 Oximetry Medical Decision Making - Medical Decision Making Was pt. sent in by a medical professional or institution (, PA, [employer], urgent care, hospital, or penitentiary...) When possible be specific @ -Patient was sent in by urgent care Did you speak to anyone other than the patient for history (EMS, parent, family, police, friend...)? What history was obtained from this source @ -No Did you review nursing and triage notes (agree or disagree)? Why? @ -I reviewed and agree with nursing and triage notes Were old charts reviewed (outside hosp., previous admission, EMS record, old EKG, old radiological studies, urgent care reports/EKG's, penitentiary records)? Report findings @ -I reviewed old lumbosacral CAT scan and compared to today's x-ray of the lumbosacral spine. Patient has a new fracture L1 Differential Diagnosis (chest pain, altered mental status, abdominal pain women, abdominal pain men, vaginal bleeding, weakness, fever, dyspnea, syncope, headache, dizziness, GI bleed, back pain, seizure, CVA, palpatations, mental health, musculoskeletal)? @ -Differential Back Pain: Strain, zoster, cauda equina syndrome, epidural abscess, vertebral osteomyelitis , discitis, fracture, subluxation, disc herniation, DJD, spinal stenosis, dissection, AAA, pancreatitis, peptic ulcer disease, pyelonephritis, kidney stone, this is not meant to be an all-inclusive list. EKG interpreted by me (3pts min.). @ -As above X-rays interpreted by me (1pt min.). @ -Lumbosacral spine shows a new compression fracture at L1 from the previous scan in February CT interpreted by me (1pt min.). @ -None done U/S interpreted by me (1pt. min.). @ -None done What testing was considered but not performed or refused? (CT, X-rays, U/S, labs)? Why? @ -None What meds were considered but not given or refused? Why? @ -None Did you discuss the management of the patient with other professionals (professionals i.e. DrBalta, PA, [employer], lab, RT, psych nurse, social media marketing manager, diesel engine operator, teacher, biological technical officer, special education case manager)? Give summary @ -No Was smoking cessation discussed for >3mins.? @ -No Was critical care preformed (if so, how long)? @ -No Were there social determinants of health that impacted care today? How? (Homelessness, low income, unemployed, alcoholism, drug addiction, transportation, low edu. Level, literacy, decrease access to med. care, long term, rehab)? @ -No Was there de-escalation of care discussed even if they declined (Discuss DNR or withdrawal of care, Hospice)? DNR status @ -No What co-morbidities impacted this encounter? (DM, HTN, Smoking, COPD, CAD, Cancer, CVA, ARF, Chemo, Hep., AIDS, mental health diagnosis, sleep apnea, morbid obesity)? @ -None Was patient admitted / discharged? Hospital course, mention meds given and route, prescriptions, significant lab abnormalities, going to OR and other pertinent info. @ -Patient was given Toradol and I reevaluated her and she was feeling considerably better. Undiagnosed new problem with uncertain prognosis? @ -No Drug Therapy requiring intensive monitoring for toxicity (Heparin, Nitro, Insulin, Cardizem)? @ -No Were any procedures done? @ -No Diagnosis/symptom? @ -L1 compression fracture Acute, or Chronic, or Acute on Chronic? @ -Acute Uncomplicated (without systemic symptoms) or Complicated (systemic symptoms)? @ -Complicated Side effects of treatment? @ -No Exacerbation, Progression, or Severe Exacerbation? @ -No Poses a threat to life or bodily function? How? (Chest pain, [place], [place], pneumonia, PE, COPD, DKA, ARF, appy, cholecystitis, CVA, Diverticulitis, Homicidal, Suicidal, threat to staff... and all critical care pts) @ -No Diagnosis/symptom? @ -Sciatica Acute, or Chronic, or Acute on Chronic? @ -Acute Uncomplicated (without systemic symptoms) or Complicated (systemic symptoms)? @ -Uncomplicated Side effects of treatment? @ -None Exacerbation, Progression, or Severe Exacerbation] @ -No Poses a threat to life or bodily function? @ -No - Lab Data Lab Results 12/23/23 Range/Units 15:20 Urine Color Yellow Urine Appearance Clear (Clear) Urine pH 6.5 (5.0-8.0) Ur Specific [place] 1.017 (1.001-1.035) Urine Protein 1+ H (Negative) Urine Glucose (UA) Negative (Negative) Urine Ketones Negative (Negative) Urine Blood Negative (Negative) Urine Nitrite Negative (Negative) Urine Bilirubin Negative (Negative) Urine Urobilinogen 4.0 (<2.0) mg/dL Ur Leukocyte Esterase Negative (Negative) Urine RBC 2 (0-5) /hpf Urine WBC 2 (0-5) /hpf Ur Squamous Epith Cells <1 (0-4) /hpf Urine Mucus Rare H (None) /hpf Disposition Clinical Impression: Compression fracture of L1 vertebra, Sciatica Disposition: HOME SELF-CARE Prescriptions: predniSONE [Deltasone] 40 mg PO DAILY #8 tab Is patient prescribed a controlled substance at d/c from ED?: No Referrals: Madhu Milner MD [Primary Care Provider] - 1-2 days Time of Disposition: 16:11
[2023-12-23] MEDS: HYDROmorphone 0.5 MG/0.5 ML SYRINGE IVP STA (14:55)
[2023-12-23] MEDS: KETOROLAC 15 MG/ML 1 ML VIAL IVP STA (14:56)
[2023-12-23 15:37] LABS: Appearance,Urine Clear (Clear); Bilirubin,Urine Negative (Negative); Blood,Urine Negative (Negative); Color,Urine Yellow; Glucose,Urine (UA) Negative (Negative); Ketones,Urine Negative (Negative); Leukocyte Esterase,Urine Negative (Negative); Mucus,Urine Rare /hpf; Nitrite,Urine Negative (Negative); PH, Urine 6.5 (5.0-8.0); Protein,Urine 1+ (Negative); RBC,Urine 2 /hpf (0-5); Specific Gravity,Urine 1.017 (1.001-1.035); Squamous Epithelial Cell,Urine <1 /hpf (0-4); WBC,Urine 2 /hpf (0-5)
--- NOTE | 2023-12-23 15:51 | XR ---
EXAMINATION TYPE: XR lumbosacral spine min 4V DATE OF EXAM: 12/23/2023 2:34 PM CLINICAL INDICATION:Female, 83 years old with history of Back pain; H COMPARISON: Lumbar spine radiographs from 09/29/2021 TECHNIQUE: XR lumbosacral spine min 4V - Frontal, lateral , bilateral oblique and coned in L5-S1 late ral views of the spine. FINDINGS: AP alignment is anatomic. Left convex scoliotic curvature centered about L3. The pedicles are intact. The transverse processes are intact. Facet arthropathy and degenerative disc disease noted. Superior endplate/wedge compression fracture L 1 of indeterminate age. IMPRESSION: 1. Multilevel degenerative disc disease with scoliosis. There is a superior endplate/wedge compressio n fracture of L1 of indeterminate age.
[2023-12-23 16:07] VITALS: BP 168/74; PULSE 64; RESP 18
[2023-12-23] MEDS: ACET/COD 300 MG/30 MG STARTER PACK 6 TAB BTL PO STA (16:35)
== END 2023-12-23 16:37 | disposition home or self-care (01) ==
LOC: EC 12:51
DX: S32.010A Wedge compression fracture of first lumbar vertebra, initial encounter for closed fracture (principal); M54.41 Lumbago with sciatica, right side; Z88.6 Allergy status to analgesic agent; X58.XXXA Exposure to other specified factors, initial encounter
CPT/HCPCS: 81001; 72110; 99284; 96374; 96375; J1885; J1170

== ENCOUNTER → 2024-01-07 | Outpatient (CLI) | payer MEDICARE ==
--- NOTE | 2024-01-07 12:55 | XR ---
EXAMINATION TYPE: XR chest 2V DATE OF EXAM: 01/07/2024 COMPARISON: 08/31/2021 HISTORY: Shortness of breath TECHNIQUE: Frontal and lateral views of the chest are obtained. FINDINGS: Scattered senescent parenchymal changes noted. Hyperinflation compatible with COPD. No evidence for infiltrate. No evidence for atelectasis. Heart size is stable. Mediastinal structures are stable and grossly unremarkable. No evidence for hilar prominence. Degenerative changes dorsal spine. IMPRESSION: 1. No evidence for acute pulmonary disease.
== END | disposition home or self-care (01) ==
LOC: RADXRMAIN 12:12
PROVIDERS: ATTEND Orthopaedic Surgery Orthopaedic Surgery of the Spine
DX: Z01.818 Encounter for other preprocedural examination (principal); Z22.322 Carrier or suspected carrier of Methicillin resistant Staphylococcus aureus; R06.02 Shortness of breath
CPT/HCPCS: 71046

== ENCOUNTER → 2024-01-07 | Outpatient (CLI) | payer MEDICARE ==
[2024-01-07 13:29] LABS: INR 1.6 (<1.2); Partial Thromboplastin Time 27.5 sec (22.0-30.0)
[2024-01-07 14:16] LABS: Appearance,Urine Clear (Clear); Bilirubin,Urine Negative (Negative); Blood,Urine Negative (Negative); Color,Urine Yellow (Yellow); Ketones,Urine Negative (Negative); Nitrite,Urine Negative (Negative); PH, Urine 6.5; Specific Gravity,Urine 1.011 (1.001-1.030)
[2024-01-07 14:24] LABS: Bacteria,Urine None Seen (None Seen)
[2024-01-07 14:27] LABS: HCT 37.2 % (37.2-46.3); HGB 11.6 g/dL (12.0-15.0); MCH 26.3 pg (27.0-32.0); MCHC 31.2 g/dL (32.0-37.0); MCV 84.4 FL (80.0-97.0); Mean Platelet Volume 8.9 FL (9.5-12.2); NRBC Per 100 WBC 0 X 10*3/uL (0.00-0.01); Platelet Count 253 X 10*3/uL (140-440); RBC 4.41 X 10*6/uL (4.10-5.20); RDW 17.4 % (11.5-14.5); WBC 8.85 X 10*3/uL (4.50-10.00)
[2024-01-07 14:28] LABS: Basophils # (A) 0.05 X 10*3/uL (0.00-0.10); Basophils % (A) 0.6 %; Eosinophils # (A) 0.14 X 10*3/uL (0.04-0.35); Eosinophils % (A) 1.6 %; Lymphocytes # (A) 1.02 X 10*3/uL (0.90-5.00); Lymphocytes % (A) 11.5 %; Monocytes # (A) 0.86 X 10*3/uL (0.20-1.00); Monocytes % (A) 9.7 %; Neutrophils # (A) 6.75 X 10*3/uL (1.80-7.70); Neutrophils % (A) 76.3 %
[2024-01-07 19:38] LABS: Blood Urea Nitrogen 10.6 mg/dL (9.0-27.0); Calcium 9.5 mg/dL (8.7-10.3); Carbon Dioxide 18.9 mmol/L (21.6-31.8); Chloride 98 mmol/L (96-109); Glucose 126 mg/dL (70-110); Potassium 3.9 mmol/L (3.5-5.5); Sodium 133 mmol/L (135-145)
== END | disposition home or self-care (01) ==
LOC: LABPAT 12:06
PROVIDERS: ATTEND Orthopaedic Surgery Orthopaedic Surgery of the Spine
DX: Z01.812 Encounter for preprocedural laboratory examination (principal); M48.56XA Collapsed vertebra, not elsewhere classified, lumbar region, initial encounter for fracture; Z22.322 Carrier or suspected carrier of Methicillin resistant Staphylococcus aureus
CPT/HCPCS: 36415; 80048; 81001; 85025; 85610; 85730; 87070

== ENCOUNTER → 2024-02-04 | Outpatient (CLI) | payer MEDICARE ==
--- NOTE | 2024-02-04 13:43 | NM ---
EXAMINATION TYPE: NM bone scan whole body DATE OF EXAM: 02/04/2024 COMPARISON: NONE CLINICAL INDICATION: Female, 83 years old with history of S32.019A FX LUMBAR SPINE; Delayed whole-body scanning was performed following the injection of 23.1 mCi Tc 99m MDP. Images acq uired 4.5 hours post injection. FINDINGS: Intense linear uptake involving L1 compatible with recent compression fracture. There is mottled type uptake extending from the mid thoracic spine through T12. This could be degenerative in nature and/o r related to nonacute fractures. Degenerative uptake about the shoulders, hands and wrists, knees and ankles. IMPRESSION: 1. Intense linear uptake involving L1 compatible with recent compression fracture. 2. mottled thoracic uptake as discussed above.
== END | disposition home or self-care (01) ==
LOC: RADNMMAIN 07:03
PROVIDERS: ATTEND Orthopaedic Surgery Orthopaedic Surgery of the Spine
DX: M48.56XA Collapsed vertebra, not elsewhere classified, lumbar region, initial encounter for fracture (principal)
CPT/HCPCS: 78306; A9503

== ENCOUNTER → 2024-02-21 | Outpatient (CLI) | payer MEDICARE ==
[2024-02-21 12:36] LABS: Partial Thromboplastin Time 29.2 sec (22.0-30.0)
[2024-02-21 16:02] LABS: Appearance,Urine Clear (Clear); Bilirubin,Urine Negative (Negative); Blood,Urine Negative (Negative); Color,Urine Yellow (Yellow); Ketones,Urine Negative (Negative); Nitrite,Urine Negative (Negative); Specific Gravity,Urine 1.022 (1.001-1.030)
[2024-02-21 16:09] LABS: Bacteria,Urine None Seen (None Seen)
[2024-02-21 17:01] LABS: BUN/Creat Ratio 19.33 Ratio (12.00-20.00); Blood Urea Nitrogen 11.6 mg/dL (9.0-27.0); Calcium 9.7 mg/dL (8.7-10.3); Carbon Dioxide 20.8 mmol/L (21.6-31.8); Chloride 97 mmol/L (96-109); Glucose 105 mg/dL (70-110); Potassium 4.8 mmol/L (3.5-5.5); Sodium 131 mmol/L (135-145)
[2024-02-21 17:08] LABS: Basophils # (A) 0.04 X 10*3/uL (0.00-0.10); Basophils % (A) 0.7 %; Eosinophils # (A) 0.13 X 10*3/uL (0.04-0.35); Eosinophils % (A) 2.3 %; HCT 42.1 % (37.2-46.3); HGB 13.1 g/dL (12.0-15.0); Lymphocytes # (A) 1.65 X 10*3/uL (0.90-5.00); Lymphocytes % (A) 28.8 %; MCH 26.5 pg (27.0-32.0); MCHC 31.1 g/dL (32.0-37.0); MCV 85.1 FL (80.0-97.0); Mean Platelet Volume 9.9 FL (9.5-12.2); Monocytes # (A) 0.66 X 10*3/uL (0.20-1.00); Monocytes % (A) 11.5 %; NRBC Per 100 WBC 0 X 10*3/uL (0.00-0.01); Neutrophils # (A) 3.23 X 10*3/uL (1.80-7.70); Neutrophils % (A) 56.4 %; Platelet Count 204 X 10*3/uL (140-440); RBC 4.95 X 10*6/uL (4.10-5.20); RDW 18.6 % (11.5-14.5); WBC 5.73 X 10*3/uL (4.50-10.00)
[2024-02-21 22:14] LABS: INR 1.4 (<1.2); Prothrombin Time 14.9 sec (10.0-12.5)
== END | disposition home or self-care (01) ==
LOC: LABPAT 10:56
PROVIDERS: ATTEND Orthopaedic Surgery Orthopaedic Surgery of the Spine
DX: Z01.812 Encounter for preprocedural laboratory examination (principal); M48.56XA Collapsed vertebra, not elsewhere classified, lumbar region, initial encounter for fracture; X58.XXXA Exposure to other specified factors, initial encounter
CPT/HCPCS: 80048; 81001; 85025; 85610; 85730; 86850; 86900; 86901

== ENCOUNTER 2024-02-26 15:10 | Day surgery (SDC) | payer MEDICARE ==
[~2024-02-26 15:10] MED LIST changes: -ALPRAZolam 0.25 MG TAB PO PRN; -ALPRAZolam 0.5 MG TAB PO PRN; +IOPAMIDOL M200 10 ML VIAL ONE; +LACTATED RINGERS 1,000 ML BAG ONE; +LIDOCAINE 1%-EPI 1:100,000 20 ML VIAL ONE; -NITROGLYCERIN SL TABS 0.4 MG TAB SUBLINGUAL PRN; +ONDANSETRON 4 MG/2 ML VIAL ONE; -SODIUM CHLORIDE 0.9% 1,000 ML in EMPTY BAG 1 BAG IV SCH
[2024-02-26] MEDS ORDERED: SUCCINYLCHOLINE CHLORIDE 200 MG/10 ML VIAL IV ONE (15:22)
[2024-02-26] MEDS ORDERED: fentaNYL (PF) 50 MCG/ML 2 ML AMP ONE (15:22)
[2024-02-26] MEDS ORDERED: PROPOFOL 10 MG/ML 20 ML VIAL IV ONE (15:22)
[2024-02-26] MEDS ORDERED: KETOROLAC 15 MG/ML 1 ML VIAL ONE (15:22)
[2024-02-26] MEDS ORDERED: LIDOCAINE 1% INJ 10MG/ML (20 ML MDV) ONE (15:22)
[2024-02-26] MEDS ORDERED: PHENYLEPHRINE-0.9% NACL SYG 1,000 MCG/10 ML SYRINGE ONE (15:22)
[2024-02-26] MEDS ORDERED: SODIUM CHLORIDE 0.9% 100 ML BAG IV ONE (15:27)
[2024-02-26] MEDS ORDERED: ceFAZolin 1,000 MG VIAL ONE (15:27)
[2024-02-26] MEDS ORDERED: MEPERIDINE 50 MG/ML SYRINGE ONE (17:05)
--- NOTE | 2024-03-20 16:18 | P.OP ---
Date of Procedure: 02/26/24 Preoperative Diagnosis: L1 acute pathologic compression fracture due to osteoporosis Postoperative Diagnosis: L1 acute pathologic compression fracture due to osteoporosis Anesthesia: GETA Pathology: other (L1 vertebral body biopsy sent to pathology) Condition: stable Disposition: PACU Description of Procedure: BRIEF OPERATIVE NOTE Preoperative Diagnosis: L1 acute pathologic compression fracture due to osteoporosis Postoperative Diagnosis: Same Procedure: Kyphoplasty of L1 Vertebral body biopsy of L1 Use of biplanar fluoroscopic guidance Surgeon: Dr. Yin Contract Forester: Osman ALEXANDER who is present throughout the entire the case persistence during positioning, dissection, exposure, visualization, and all crucial elements of the case as well as closure. Anesthesia: General anesthesia Estimated blood loss: Less than 10 mL Specimen: Vertebral body biopsy of L1 sent to pathology in formalin Complications: None apparent Components implanted: Bone cement Disposition: To recovery room in good stable condition. OPERATIVE INDICATIONS The patient has been having issues in their back ever since sustaining an inj ury. She had a very light incident and was having new pain at her lower back towards her thoracic spine. She had been through issues in the back before with prior compression fractures and was found to have a new compression fracture at L1 which correlated well with her symptoms. The patient has been through conservative treatment. They attempted conservative care with bracing however they're not having any benefit despite brace use. They continue to have significant pain and debility due to their fracture. We discussed various treatment options including surgery, and the patient wishes to proceed with surgery We discussed the risk, patient's alternatives and benefits of surgery including but not limited to, risk of bleeding risk of infection, risk of need for further surgery, risk of decreased, loss of motion, loss of function, cement extravasation, nerve damage, paralysis, heart attack, blindness and . OPERATIVE SUMMARY After discussing all the risks, patient alternatives and benefits at length, the patient elected to proceed with surgical intervention, signed informed consent, and presented for their procedure. The patient was seen and examined in the preoperative holding area and the surgical site was marked. The patient was given antibiotics and brought to the operating room. The patient was sedated and intubated by anesthesia in standard fashion. The patient was positioned on to the operating room table in a prone position on the appropriate well-padded and well molded bilateral chest rolls. We were careful to pad any bony prominences and pressure points. We were careful to maintain the patient's cervical spine and good neutral alignment and position throughout. We used 2 C-arm machines to establish biplanar fluoroscopic guidance in AP and lateral positions. We were able to localize the fractures appropriately at L1. The patient was prepped and draped in a normal standard fashion. An appropriate timeout and keystone protocol performed. We were able to proceed with the surgery. The local wound area was infiltrated with local anesthetic. An incision was made over the lateral aspect of the pedicle over the appropriate levels with a small 2 mm stab incision over the pedicle of L1. Intraoperative fluoroscopy was taken which showed a marker at the appropriate level. With the appropriate level positively confirmed, I was able to position a sharp trocar over the lateral aspect of the pedicle. As able to advance the trocar into the pedicle and into the posterior aspect of vertebral body being careful to avoid penetration cephalad caudad or medially. The trocar was placed appropriately into the posterior aspect of vertebral body at the appropriate levels of L1. This was confirmed with C-arm guidance. With the trocar intact I was then able to take a bone biopsy with a biopsy punch or a bony drill. The biopsy specimen was passed off to be sent to pathology in formalin. I was then able to place the kyphoplasty balloon within the vertebral body of L1. The position was checked on C-arm. I was able to inflate the balloon under low pressure and visualization with C-arm. The balloon was well enclosed within the vertebral body. The cement was prepared. With the cement at appropriate working condition the balloons were deflated and removed. I was able to place bony cement with trocar with the cement delivery device under low pressure. It had good fill within the vertebral body. There is no evidence of any extravasation of the cement posteriorly toward the canal. The cement was well contained at the appropriate levels. The cement was allowed to cure appropriately. The trochars removed and final images were taken on C-arm. This showed the cement at the appropriate levels. We were able to proceed with closure. The wound was cleaned and dried and dressed with the appropriate dressing. The drapes were broken down. The patient was gently rolled back onto their hospital bed being careful to maintain their cervical spine and good neutral alignment and position. They were woken up by anesthesia, extubated, and brought to the recovery room in good stable condition. The patient will be admitted to the hospital for observation and for appropriate postoperative care, medical management and monitoring. We will continue to follow them closely about the postoperative course.
--- NOTE | 2024-03-25 16:59 | FL ---
Fluoroscopy INDICATION: Pain FINDINGS: Fluoroscopy time: 64 seconds. Total dose area product (DAP) in uGy*m?, mGy*cm? (or similar): 11.83087 Images obtained: 0. IMPRESSION: 1. Documentation of fluoroscopy.
--- NOTE | 2024-03-25 16:59 | XR ---
Fluoroscopy INDICATION: Pain FINDINGS: Fluoroscopy time: 64 seconds. Total dose area product (DAP) in uGy*m?, mGy*cm? (or similar): 11.24399 Images obtained: 0. IMPRESSION: 1. Documentation of fluoroscopy.
== END 2024-02-26 18:30 | disposition home or self-care (01) ==
LOC: OR 15:10
PROVIDERS: ATTEND Orthopaedic Surgery Orthopaedic Surgery of the Spine
DX: M80.08XA Age-related osteoporosis with current pathological fracture, vertebra(e), initial encounter for fracture (principal); I48.91 Unspecified atrial fibrillation; I10 Essential (primary) hypertension; J45.909 Unspecified asthma, uncomplicated; M19.90 Unspecified osteoarthritis, unspecified site; K21.9 Gastro-esophageal reflux disease without esophagitis; Z79.01 Long term (current) use of anticoagulants; Z79.899 Other long term (current) drug therapy; Z95.0 Presence of cardiac pacemaker
CPT/HCPCS: 72100; 88307; 88311

== ENCOUNTER 2024-05-06 07:25 | Observation (INO) | payer MEDICARE ==
[2024-05-06 08:14] LABS: Basophils % (A) 0 %; Eosinophils % (A) 1 %; HCT 37.7 % (34.0-46.0); HGB 11.6 gm/dL (11.4-16.0); Hypochromasia Marked; Lymphocytes # (A) 0.9 k/uL (1.0-4.8); Lymphocytes % (A) 13 %; MCH 26.2 pg (25.0-35.0); MCHC 30.7 g/dL (31.0-37.0); MCV 85.3 fL (80.0-100.0); Mean Platelet Volume 7.5; Monocytes # (A) 0.4 k/uL (0-1.0); Monocytes % (A) 6 %; Neutrophils # (A) 5.6 k/uL (1.3-7.7); Neutrophils % (A) 79 %; Platelet Count 188 k/uL (150-450); RBC 4.42 m/uL (3.80-5.40); WBC 7.1 k/uL (3.8-10.6)
[2024-05-06 08:29] LABS: ALT 15 U/L (4-34); AST 26 U/L (14-36); African American GFR (CKD) >90 (>60 ml/min/1.73 sqM); Albumin 4.1 g/dL (3.5-5.0); Alkaline Phosphatase 80 U/L (38-126); Anion Gap 13 mmol/L; Blood Urea Nitrogen 11 mg/dL (7-17); Calcium 9.6 mg/dL (8.4-10.2); Carbon Dioxide 19 mmol/L (22-30); Chloride 98 mmol/L (98-107); Glucose 153 mg/dL (74-99); Magnesium 1.5 mg/dL (1.6-2.3); Non-African American GFR(CKD) >90 (>60 ml/min/1.73 sqM); Potassium 4.3 mmol/L (3.5-5.1); Sodium 130 mmol/L (137-145); Total Bilirubin 1.3 mg/dL (0.2-1.3); Total Protein 6.8 g/dL (6.3-8.2)
[2024-05-06 08:37] LABS: NT-Pro-B-Type Natriuretic Pept 7670 pg/mL
--- NOTE | 2024-05-06 08:43 | XR ---
EXAMINATION TYPE: XR chest 2V DATE OF EXAM: 05/06/2024 COMPARISON: 01/07/2024 TECHNIQUE: PA and lateral views submitted. HISTORY: Redness of breath FINDINGS: There is hypertrophic and degenerative changes of the spine. Compression deformities with vertebral p lasty. Cardiac device and leads noted in previous cardiac surgery seen. Surgical clips in the upper a bdomen. Osteopenia and arthropathy of the shoulders. Heart size mildly enlarged and there is a diffuse interstitial pattern. Subsegmental changes at the l gracy bases. IMPRESSION: 1. Correlate for mild venous congestion otherwise consider interstitial pneumonitis.. [facility], , 05/06/2024 8:40 AM
[2024-05-06 08:44] LABS: INR 1.6 (<1.2); Partial Thromboplastin Time 28.3 sec (22.0-30.0); Prothrombin Time 16.5 sec (10.0-12.5)
[2024-05-06 08:57] LABS: Appearance,Urine Clear (Clear); Bilirubin,Urine Negative (Negative); Blood,Urine Small (Negative); Color,Urine Yellow; Glucose,Urine (UA) Negative (Negative); Hyaline Casts,Urine 5 /lpf (0-2); Ketones,Urine Negative (Negative); Leukocyte Esterase,Urine Small (Negative); Mucus,Urine Few /hpf; Nitrite,Urine Negative (Negative); Protein,Urine 1+ (Negative); RBC,Urine 2 /hpf (0-5); Specific Gravity,Urine 1.021 (1.001-1.035); Squamous Epithelial Cell,Urine <1 /hpf (0-4); WBC,Urine 14 /hpf (0-5)
[2024-05-06] MEDS ORDERED: ONDANSETRON 4 MG/2 ML VIAL IVP PRN (09:49)
[2024-05-06] MEDS ORDERED: NALOXONE 0.4 MG/ML 1 ML VIAL IV PRN (09:49)
--- NOTE | 2024-05-06 09:55 | ED ---
General Adult HPI - General Chief complaint: Weakness Stated complaint: Weakness Time Seen by Provider: 05/06/24 07:41 Source: patient, family, RN notes reviewed, old records reviewed Mode of arrival: ambulatory Limitations: no limitations - History of Present Illness Initial comments: Patient is an 84-year-old female presents emergency department complaining of weakness, shortness of breath. Has been ongoing. Patient recently had a heart valve replaced at [facility] over a month ago. Has a history of CHF, A-fib on blood thinners, hypertension. States she has been having worsening shortness of breath for the last week with lower extremity edema. Endorses worsening orthopnea. Endorses worsening exertional dyspnea. He presents for further evaluation at this time. - Related Data Home Medications Medication Instructions Recorded Confirmed Rivaroxaban [Xarelto] 20 mg PO W/SUPPER 12/31/18 05/06/24 Bimatoprost [Lumigan 0.01% Ophth 1 drop RIGHT EYE DAILY 07/27/21 05/06/24 Soln] Losartan Potassium [Cozaar] 50 mg PO BID 09/29/21 05/06/24 Metoprolol Succinate (ER) [Toprol 100 mg PO DAILY 09/29/21 05/06/24 Xl] Omeprazole [PriLOSEC] 20 mg PO AC-BRKFST 02/19/22 05/06/24 Furosemide [Lasix] 40 mg PO DAILY 01/13/24 05/06/24 Calcium Carbonate 1,500 mg PO DAILY 05/06/24 05/06/24 Allergies Allergy/AdvReac Type Severity Reaction Status Date / Time etodolac [From [facility]] Allergy Rash/Hives Verified 05/06/24 10:13 Review of Systems ROS Statement: Those systems with pertinent positive or pertinent negative responses have been documented in the HPI. Review of Systems: CONST: Denies fever EYES: Denies blurry vision ENT: Denies nasal congestion C/V: Denies Chest pain RESP: Endorses exertional shortness of breath GI: Denies abdominal pain : Denies dysuria SKIN: Denies rash. MSK: Denies joint pain. NEURO: Denies headache ROS Other: All systems not noted in ROS Statement are negative. Past Medical History Past Medical History: Atrial Fibrillation, Cancer, Heart Failure, Eye Disorder, GERD/Reflux, Hypertension, Rheumatoid Arthritis (RA) Additional Past Medical History / Comment(s): Skin cancer with removals, chronic back pain/herniated/hairline fractures/osteoporosis, glaucoma right eye., boner meat told her spine is collapsing and she has lost 30% of her bilateral lung capacity, scarring on lungs., sob with activity., past dysphagia, palpitations, hx ulcer, poor appetite History of Any Multi-Drug Resistant Organisms: None Reported Past Surgical History: Back Surgery, Cardiac Ablation, Cholecystectomy, P acemaker Additional Past Surgical History / Comment(s): Cardiac ablations, cardioversion, medtronic pacemaker "dependent" per pt., kyphoplasty, colonoscopy, skin cancer removal, bilateral cataract surgery, EGD with esophageal stent. Valve replacment 03/24/24 [facility]. Past Anesthesia/Blood Transfusion Reactions: No Reported Reaction Additional Past Anesthesia/Blood Transfusion Reaction / Comment(s): Pt has "slight claustrophobia". Pt has never received a blood transfusion. Type of Cardiac Device: Permanent Pacemaker Device Placement Date:: 08/2021 medtronic Past Psychological History: No Psychological Hx Reported Smoking Status: Never smoker Past Alcohol Use History: None Reported Past Drug Use History: None Reported - Past Family History Mother Family Medical History: CVA/TIA Additional Family Medical History / Comment(s): BLOOD CLOT IN THE BRAIN, AT AGE 61. Daughter(s) Family Medical History: Cancer Additional Family Medical History / Comment(s): MELANOMA & SQUAMOUS CELL CANCER Father Family Medical History: Respiratory Disorder Additional Family Medical History / Comment(s): Father of black lung. He work in the [employer]. General Exam - General Exam Comments Initial Comments: General: Appears in no acute distress. HEAD: Normal with no signs of head trauma. EYES: PERRLA, EOMI, conjunctiva normal, no discharge. ENT: Hearing grossly intact, normal oropharynx. RESPIRATORY: Hypoxic on room air to 88% in triage. Mildly increased work of breathing. C/V: Irregular rate and rhythm. Pitting edema in bilateral lower extremities. S1 and S2 auscultated. Peripheral pulses are plus intact throughout. ABD: Abd is soft, nontender, nondistended EXT: Normal range of motion, no obvious deformity SKIN: No rashes or lesions observed on exposed skin. NEURO: Alert and oriented x 4. Limitations: no limitations Course Vital Signs 05/06/24 05/06/2424 07:28 07:47 07:57 Temperature 97.4 F L Pulse Rate 77 68 Respiratory 18 22 Rate Blood Pressure 154/80 162/80 O2 Sat by Pulse 88 L 90 L 97 Oximetry 05/06/24 05/06/24 05/06/24 08:35 08:37 09:32 Temperature Pulse Rate 76 61 Respiratory 26 H 24 20 Rate Blood Pressure 160/74 150/88 O2 Sat by Pulse 87 L 94 L 94 L Oximetry 05/06/24 05/06/24 10:49 13:00 Temperature Pulse Rate 60 61 Respiratory 18 16 Rate Blood Pressure 154/98 148/89 O2 Sat by Pulse 96 95 Oximetry Medical Decision Making - Medical Decision Making Was pt. sent in by a medical professional or institution (Dr. PA, CASHIER AND SALESPERSON, urgent care, hospital, or intermediate...) When possible be specific @ -No Did you speak to anyone other than the patient for history (EMS, parent, family, police, friend...)? What history was obtained from this source @ -No Did you review nursing and triage notes (agree or disagree)? Why? @ -I reviewed and agree with nursing and triage notes Were old charts reviewed (outside hosp., previous admission, EMS record, old EKG, old radiological studies, urgent care reports/EKG's, intermediate records)? Report findings @ -Reviewed patient's medication list. Differential Diagnosis (chest pain, altered mental status, abdominal pain women, abdominal pain men, vaginal bleeding, weakness, fever, dyspnea, syncope, headache, dizziness, GI bleed, back pain, seizure, CVA, palpatations, mental health, musculoskeletal)? @ -Differential Dyspnea: Coronary syndrome, arrhythmia, tamponade, asthma, COPD, pulmonary embolism, pneumonia, pneumothorax, pulmonary effusion, anaphylaxis, diabetic ketoacidosis, flailed chest, pulmonary contusion, diaphragmatic rupture, anemia, neuromuscular, this is not meant to be an all-inclusive list. EKG interpreted by me (3pts min.). @ -As above X-rays interpreted by me (1pt min.). @ -X-ray shows venous congestion. Starting for CHF exacerbation CT interpreted by me (1pt min.). @ -None done U/S interpreted by me (1pt. min.). @ -None done What testing was considered but not performed or refused? (CT, X-rays, U/S, labs)? Why? @ -None What meds were considered but not given or refused? Why? @ -None Did you discuss the management of the patient with other professionals (professionals i.e. , PA, CASHIER AND SALESPERSON, lab, RT, psych nurse, social media content manager, dental scheduler, teacher, customer service security officer, leather case finisher)? Give summary @ -Discussed with admitting provider, Dr. Milner who accepted the admission. Was smoking cessation discussed for >3mins.? @ -No Was critical care preformed (if so, how long)? @ -Yes, 23 minutes Were there social determinants of health that impacted care today? How? (Homelessness, low income, unemployed, alcoholism, drug addiction, transportation, low edu. Level, literacy, decrease access to med. care, senior living, rehab)? @ -No Was there de-escalation of care discussed even if they declined (Discuss DNR or withdrawal of care, Hospice)? DNR status @ -No What co-morbidities impacted this encounter? (DM, HTN, Smoking, COPD, CAD, Cancer, CVA, ARF, Chemo, Hep., AIDS, mental health diagnosis, sleep apnea, morbid obesity)? @ -CHF, valve replacement, A-fib Was patient admitted / discharged? Hospital course, mention meds given and route, prescriptions, significant lab abnormalities, going to OR and other pertinent info. @ -Patient presents for worsening shortness of breath. Clinically presents as CHF exacerbation. We will obtain cardiopulmonary workup. She was in agreement this plan. She was hypoxic on room air to 88% was placed on 2 L nasal cannula. Vital signs otherwise within acceptable limits. EKG shows no signs of acute ischemia. Chest x-ray shows pulmonary vascular congestion. Laboratory studies remarkable for negative troponin, BNP that is elevated to 7600. Remainder the workup unremarkable. At this time, as patient is requiring oxygen I would like to admit her for IV diuresis. Family was in agreement this plan. Echo ordered. Patient started on IV Lasix. Patient admitted in stable condition. I spoke with the admitting pro vider, Dr. Milner who accepted the admission. Undiagnosed new problem with uncertain prognosis? @ -No Drug Therapy requiring intensive monitoring for toxicity (Heparin, Nitro, Insulin, Cardizem)? @ -No Were any procedures done? @ -No Diagnosis/symptom? @ -CHF resulting in hypoxic respiratory failure Acute, or Chronic, or Acute on Chronic? @ -Acute Uncomplicated (without systemic symptoms) or Complicated (systemic symptoms)? @ -Complicated Side effects of treatment? @ -No Exacerbation, Progression, or Severe Exacerbation? @ -Exacerbation Poses a threat to life or bodily function? How? (Chest pain, [place], [place], pneumonia, PE, COPD, DKA, ARF, appy, cholecystitis, CVA, Diverticulitis, Homicidal, Suicidal, threat to staff... and all critical care pts) @ -Yes - Lab Data Result diagrams: 05/06/24 07:59 05/06/24 07:59 Lab Results 05/06/24 05/06/24 05/06/24 Range/Units 07:59 07:59 07:59 WBC 7.1 (3.8-10.6) k/uL RBC 4.42 (3.80-5.40) m/uL Hgb 11.6 (11.4-16.0) gm/dL Hct 37.7 (34.0-46.0) % MCV 85.3 (80.0-100.0) fL MCH 26.2 (25.0-35.0) pg MCHC 30.7 L (31.0-37.0) g/dL RDW 16.0 H (11.5-15.5) % Plt Count 188 (150-450) k/uL MPV 7.5 Neutrophils % 79 % Lymphocytes % 13 % Monocytes % 6 % Eosinophils % 1 % Basophils % 0 % Neutrophils # 5.6 (1.3-7.7) k/uL Lymphocytes # 0.9 L (1.0-4.8) k/uL Monocytes # 0.4 (0-1.0) k/uL Eosinophils # 0.0 (0-0.7) k/uL Basophils # 0.0 (0-0.2) k/uL Hypochromasia Marked PT (10.0-12.5) sec INR (<1.2) APTT (22.0-30.0) sec Sodium 130 L (137-145) mmol/L Potassium 4.3 (3.5-5.1) mmol/L Chloride 98 (98-107) mmol/L Carbon Dioxide 19 L (22-30) mmol/L Anion Gap 13 mmol/L BUN 11 (7-17) mg/dL Creatinine 0.48 L (0.52-1.04) mg/dL Est GFR (CKD-EPI)AfAm >90 (>60 ml/min/1.73 sqM) Est GFR (CKD-EPI)NonAf >90 (>60 ml/min/1.73 sqM) Glucose 153 H (74-99) mg/dL Calcium 9.6 (8.4-10.2) mg/dL Magnesium 1.5 L (1.6-2.3) mg/dL Total Bilirubin 1.3 (0.2-1.3) mg/dL AST 26 (14-36) U/L ALT 15 (4-34) U/L Alkaline Phosphatase 80 (38-126) U/L Troponin I (0.000-0.034) ng/mL NT-Pro-B Natriuret Pep 7670 pg/mL Total Protein 6.8 (6.3-8.2) g/dL Albumin 4.1 (3.5-5.0) g/dL Urine Color Yellow Urine Appearance Clear (Clear) Urine pH 6.0 (5.0-8.0) Ur Specific [place] 1.021 (1.001-1.035) Urine Protein 1+ H (Negative) Urine Glucose (UA) Negative (Negative) Urine Ketones Negative (Negative) Urine Blood Small H (Negative) Urine Nitrite Negative (Negative) Urine Bilirubin Negative (Negative) Urine Urobilinogen 2.0 (<2.0) mg/dL Ur Leukocyte Esterase Small H (Negative) Urine RBC 2 (0-5) /hpf Urine WBC 14 H (0-5) /hpf Ur Squamous Epith Cells <1 (0-4) /hpf Hyaline Casts 5 H (0-2) /lpf Urine Mucus Few H (None) /hpf Influenza Type A (PCR) (Not Detectd) Influenza Type B (PCR) (Not Detectd) RSV (PCR) (Not Detectd) SARS-CoV-2 (PCR) (Not Detectd) 05/06/24 05/06/24 05/06/24 Range/Units 07:59 08:25 08:51 WBC (3.8-10.6) k/uL RBC (3.80-5.40) m/uL Hgb (11.4-16.0) gm/dL Hct (34.0-46.0) % MCV (80.0-100.0) fL MCH (25.0-35.0) pg MCHC (31.0-37.0) g/dL RDW (11.5-15.5) % Plt Count (150-450) k/uL MPV Neutrophils % % Lymphocytes % % Monocytes % % Eosinophils % % Basophils % % Neutrophils # (1.3-7.7) k/uL Lymphocytes # (1.0-4.8) k/uL Monocytes # (0-1.0) k/uL Eosinophils # (0-0.7) k/uL Basophils # (0-0.2) k/uL Hypochromasia PT 16.5 H (10.0-12.5) sec INR 1.6 H (<1.2) APTT 28.3 (22.0-30.0) sec Sodium (137-145) mmol/L Potassium (3.5-5.1) mmol/L Chloride (98-107) mmol/L Carbon Dioxide (22-30) mmol/L Anion Gap mmol/L BUN (7-17) mg/dL Creatinine (0.52-1.04) mg/dL Est GFR (CKD-EPI)AfAm (>60 ml/min/1.73 sqM) Est GFR (CKD-EPI)NonAf (>60 ml/min/1.73 sqM) Glucose (74-99) mg/dL Calcium (8.4-10.2) mg/dL Magnesium (1.6-2.3) mg/dL Total Bilirubin (0.2-1.3) mg/dL AST (14-36) U/L ALT (4-34) U/L Alkaline Phosphatase (38-126) U/L Troponin I <0.012 (0.000-0.034) ng/mL NT-Pro-B Natriuret Pep pg/mL Total Protein (6.3-8.2) g/dL Albumin (3.5-5.0) g/dL Urine Color Urine Appearance (Clear) Urine pH (5.0-8.0) Ur Specific [place] (1.001-1.035) Urine Protein (Negative) Urine Glucose (UA) (Negative) Urine Ketones (Negative) Urine Blood (Negative) Urine Nitrite (Negative) Urine Bilirubin (Negative) Urine Urobilinogen (<2.0) mg/dL Ur Leukocyte Esterase (Negative) Urine RBC (0-5) /hpf Urine WBC (0-5) /hpf Ur Squamous Epith Cells (0-4) /hpf Hyaline Casts (0-2) /lpf Urine Mucus (None) /hpf Influenza Type A (PCR) Not Detected (Not Detectd) Influenza Type B (PCR) Not Detected (Not Detectd) RSV (PCR) Not Detected (Not Detectd) SARS-CoV-2 (PCR) Not Detected (Not Detectd) - EKG Data -: EKG Interpreted by Me EKG Comments: 12-lead Electrocardiogram Interpretation Note EKG was reviewed and interpreted by myself. 12-lead ECG performed at 0741 is interpreted by me as revealing ventricular paced rhythm at a rate of 72 beats per minute. Indeterminate axis. QRS duration is 151 ms, QTc is 479 ms.. There were no ST or T wave abnormalities to suggest myocardial ischemia or injury. R wave progression across the precordium was delayed. By my interpretation this EKG is non-diagnostic for acute ischemia. Critical Care Time Critical Care Time: Yes Total Critical Care Time: 23 Disposition Clinical Impression: CHF (congestive heart failure), Hypoxic respiratory failure Disposition: ADMITTED IP TO THIS HOSP Condition: Stable Time of Disposition: 09:40
[2024-05-06] MEDS: FUROSEMIDE 10 MG/ML 4 ML VIAL IV STA (10:51)
--- NOTE | 2024-05-06 13:59 | P.CRDCN ---
History of Present Illness Consult date: 05/06/24 Consult reason: congestive heart failure History of present illness: This is an 84-year-old female patient of Dr. Cabrera with past medical history of sick sinus syndrome status post initial pacemaker in 2015, chronic atrial fibrillation post atrial fibrillation ablation and status post AV mamie ablation with upgraded BiV pacemaker in September 2021, hypertension, mild CAD, mild cardiomyopathy with EF of 45 to 50%, severe tricuspid regurgitation, heart failure, moderate mitral regurgitation. We have been asked to evaluate the patient for heart failure. Patient complains that she is retaining water of this been going on for a long time but worse over this past week. She denies any weight gain. She states she has not had daily difficulty breathing. She is urinating a lot. Blood pressure 154/98, heart rate 60, pulse ox 96% on 2 L owen al cannula. EKG: Ventricularly paced rhythm Chest x-ray: Correlate for mild venous congestion otherwise consider interstitial pneumonia. Laboratory studies: WBC 7.1, hemoglobin 11.6. INR 1.6. Creatinine 0.48, potassium 4.3, sodium 130. Troponin negative x 2. proBNP 7670. Influenza A, influenza B, RSV, COVID-19 not detected. Home cardiac medications: Echocardiogram 09/20/2023 revealed EF 50 to 55%, LV hyperdynamic systolic function, RV moderately dilated, mitral valve with moderate regurgitation, mild MAC, tricuspid valve with severe regurgitation, highly eccentric, mild regurgitation of aortic valve. BRANDON 01/02/2024 EF 66%, mildly enlarged RV, RVSP 66 mmHg. PFO by color-flow with predominantly right to left shunting across the atrial septum. Mild mitral regurgitation, severe tricuspid regurgitation. Mechanism appears to be leaflet impingement from the right ventricular pacemaker lead. Mild aortic regurgitation. Left and right heart catheterization performed 11/13/2022 revealed left main 0%, LAD 20 to 23%, left circumflex 0%, RCA 20 to 30%. Review Of Systems: At the time of my exam: CONSTITUTIONAL: Denies fever or chills. HEENT: Denies blurred vision, vision changes, or eye pain. Denies hemoptysis CARDIOVASCULAR: Denies chest pain. Denies orthopnea. Denies PND. Denies palpi tations RESPIRATORY: Reports shortness of breath. GASTROINTESTINAL: Denies abdominal pain. Denies nausea or vomiting. HEMATOLOGIC: Denies bleeding disorders. GENITOURINARY: Denies any blood in urine. SKIN: Denies puritis. Denies rash. Physical examination: Gen: This is a 84-year-old female resting in no acute distress VS: reviewed HEENT: Head is atraumatic, normocephalic. Pupils equal, round. Sclerae is anicteric. NECK: Supple. No JVD. LUNGS: Diminished breath sounds. No intercostal retractions. HEART: Irregular rate and rhythm. No murmur. ABDOMEN: Soft No tenderness. EXTREMITIES: Minimal pedal edema. No calf tenderness. NEUROLOGICAL: Patient is awake, alert and oriented x3. Assessment: Acute on chronic diastolic heart failure Chest pain, rule out acute coronary syndrome History of sick sinus syndrome status post pacemaker upgraded to BiV pacemaker Hypertension Known mild coronary artery disease Cardiomyopathy with EF 45 to 50% Severe tricuspid regurgitation status post valve replacement 03/24/2024 at [facility] Plan: Resume patient's home cardiac medications Interrogate pacemaker Obtain 2-D echocardiogram and Doppler study to assess cardiac structure and function Records will be reviewed from [facility] Continue patient on IV Lasix 40 mg every 12 hours Monitor MAIA, daily weights, electrolytes and renal function Further recommendations to follow based upon clinical course Thank you kindly for this consultation. Nurse practitioner note has been reviewed, I agree with documented findings and plan of care. Patient was seen and examined. Past Medical History Past Medical History: Atrial Fibrillation, Cancer, Heart Failure, Eye Disorder, GERD/Reflux, Hypertension, Rheumatoid Arthritis (RA) Additional Past Medical History / Comment(s): Skin cancer with removals, chronic back pain/herniated/hairline fractures/osteoporosis, glaucoma right eye., card grader told her spine is collapsing and she has lost 30% of her bilateral lung capacity, scarring on lungs., sob with activity., past dysphagia, palpitations, hx ulcer, poor appetite History of Any Multi-Drug Resistant Organisms: None Reported Past Surgical History: Back Surgery, Cardiac Ablation, Cholecystectomy, Pacemaker Additional Past Surgical History / Comment(s): Cardiac ablations, cardioversion, medtronic pacemaker "dependent" per pt., kyphoplasty, colonoscopy, skin cancer removal, bilateral cataract surgery, EGD with esophageal stent. Valve replacment 03/24/24 [facility]. Past Anesthesia/Blood Transfusion Reactions: No Reported Reaction Additional Past Anesthesia/Blood Transfusion Reaction / Comment(s): Pt has "slight claustrophobia". Pt has never received a blood transfusion. Type of Cardiac Device: Permanent Pacemaker Device Placement Date:: 08/2021 medtronic Past Psychological History: No Psychological Hx Reported Smoking Status: Never smoker Past Alcohol Use History: None Reported Past Drug Use History: None Reported - Past Family History Mother Family Medical History: CVA/TIA Additional Family Medical History / Comment(s): BLOOD CLOT IN THE BRAIN, AT AGE 61. Daughter(s) Family Medical History: Cancer Additional Family Medical History / Comment(s): MELANOMA & SQUAMOUS CELL CANCER Father Family Medical History: Respiratory Disorder Additional Family Medical History / Comment(s): Father of black lung. He work in the [employer]. Medications and Allergies Home Medications Medication Instructions Recorded Confirmed Type Rivaroxaban [Xarelto] 20 mg PO W/SUPPER 12/31/18 05/06/24 History Bimatoprost [Lumigan 0.01% Ophth 1 drop RIGHT EYE DAILY 07/27/21 05/06/24 History Soln] Losartan Potassium [Cozaar] 50 mg PO BID 09/29/21 05/06/24 History Metoprolol Succinate (ER) [Toprol 100 mg PO DAILY 09/29/21 05/06/24 History Xl] Omeprazole [PriLOSEC] 20 mg PO AC-BRKFST 02/19/22 05/06/24 History Furosemide [Lasix] 40 mg PO DAILY 01/13/24 05/06/24 History Calcium Carbonate 1,500 mg PO DAILY 05/06/24 05/06/24 History Allergies Allergy/AdvReac Type Severity Reaction Status Date / Time etodolac [From [facility]] Allergy Rash/Hives Verified 05/06/24 10:13 Physical Exam Vitals: Vital Signs Temp Pulse Resp BP Pulse Ox 05/06/24 10:49 60 18 154/98 96 05/06/24 09:32 61 20 150/88 94 L 05/06/24 08:37 76 24 160/74 94 L 05/06/24 08:35 26 H 87 L 05/06/24 07:57 97 05/06/24 07:47 68 22 162/80 90 L 05/06/24 07:28 97.4 F L 77 18 154/80 88 L Intake and Output 05/05/24 05/06/24 05/06/24 22:59 06:59 14:59 Other: Weight 75.75 kg Results 05/06/24 07:59 05/06/24 07:59 Cardiac Enzymes 05/06/24 05/06/24 05/06/24 Range/Units 07:59 07:59 11:48 AST 26 (14-36) U/L Troponin I <0.012 <0.012 (0.000-0.034) ng/mL Coagulation 05/06/24 Range/Units 08:25 PT 16.5 H (10.0-12.5) sec APTT 28.3 (22.0-30.0) sec CBC 05/06/24 Range/Units 07:59 WBC 7.1 (3.8-10.6) k/uL RBC 4.42 (3.80-5.40) m/uL Hgb 11.6 (11.4-16.0) gm/dL Hct 37.7 (34.0-46.0) % Plt Count 188 (150-450) k/uL Comprehensive Metabolic Panel 05/06/24 Range/Units 07:59 Sodium 130 L (137-145) mmol/L Potassium 4.3 (3.5-5.1) mmol/L Chloride 98 (98-107) mmol/L Carbon Dioxide 19 L (22-30) mmol/L BUN 11 (7-17) mg/dL Creatinine 0.48 L (0.52-1.04) mg/dL Glucose 153 H (74-99) mg/dL Calcium 9.6 (8.4-10.2) mg/dL AST 26 (14-36) U/L ALT 15 (4-34) U/L Alkaline Phosphatase 80 (38-126) U/L Total Protein 6.8 (6.3-8.2) g/dL Albumin 4.1 (3.5-5.0) g/dL Current Medications Generic Name Dose Route Start Last Admin Trade Name Freq PRN Reason Stop Dose Admin Furosemide 40 mg 05/06/24 21:00 Furosemide 10 Mg/Ml 4 Ml Vial IV Q12HR ALEX Naloxone HCl 0.2 mg 05/06/24 09:49 Naloxone 0.4 Mg/Ml 1 Ml Vial IV Q2M PRN Opioid Reversal Ondansetron HCl 4 mg 05/06/24 09:49 Ondansetron 4 Mg/2 Ml Vial IVP Q8HR PRN Nausea And Vomiting Intake and Output 05/05/24 05/06/24 05/06/24 22:59 06:59 14:59 Other: Weight 75.75 kg Patient Weight 05/07/24 06:59 Weight 75.75 kg 05/06/24 07:59 05/06/24 07:59
[2024-05-06] MEDS: METOPROLOL SUCCINATE (ER) 100 MG TAB.ER.24H PO SCH (15:11)
[2024-05-06] MEDS: LOSARTAN 50 MG TAB PO SCH (15:11)
[2024-05-06] MEDS: RIVAROXABAN 20 MG TAB PO SCH (20:31)
[2024-05-06] MEDS: FUROSEMIDE 10 MG/ML 4 ML VIAL IV SCH (20:31)
--- NOTE | 2024-05-07 06:54 | P.HPIM ---
History of Present Illness H&P Date: 05/06/24 HISTORY OF PRESENT ILLNESS: 84-year-old with active medical history of A-fib, congestive heart failure, valvular heart disease, severe GERD, history of rheumatoid arthritis, postcardiac ablation in the past, post pacemaker, chronic history of lower back pain with bulging disc, recurrent palpitation, history of peptic ulcer disease. She is seeing cardiology on regular basis [address] Cabrera patient who had sick sinus syndrome post pacemaker back in 2015 post atrial fibrillation ablation and post AV mamie ablation with upgrade to biventricular pacer in September 2021 who also suffers from mild cardiomyopathy with low ejection fraction had severe tricuspid regurgitation post TTVR at [facility] in April 20, 2024 has been seen by cardiology at [facility] for a regular basis. She presented to the emergency department At [facility] on 05/06/2024 complaining of severe weakness with increased shortness of breath mild tightness and pressure was seen and evaluated her finding including chest x-ray showed significant venous congestion consistent with fluid overload heart failure, laboratory value with her BNP 7670 normal kidney function troponin is negative normal hemoglobin and white blood cell. EKG showed electronic ventricular pacer with pulse running in the 70s. Patient was diagnosed with acute congestive heart failure combined systolic and diastolic acute on chronic continue diuretics consult cardiology admit patient to the hospital. According to patient her diet has been changed quite. Has been consuming a bit more salt than expected with more fluid and felt start retaining more fluid than before. She is very compliant to her medication. REVIEW OF SYSTEMS: CONSTITUTIONAL: Well-developed no acute respiratory distress. EYES: No icterus sclerae, no conjunctivitis. EARS, NOSE, MOUTH, THROAT, and FACE: No sore throat, lymphadenopathy, carotid bruits or deformity. RESPIRATORY: Positive shortness of breath no cough or wheezes. CARDIOVASCULAR: Positive PND orthopnea palpitation. GASTROINTESTINAL: No Abd pain, Nausea or vomiting, no Diarrhea or constipation, No GI Bleed, no distention or masses. GENITOURINARY: Negative for Hematuria or UTI, no kidney stones. INTEGUMENT/BREAST: Negative for any muscular injury with mild osteoarthritis.. HEMATOLOGIC/LYMPHATIC: Negative for bleed or purpura. MUSCULOSKELTAL: Negative for Myalgia or arthralgia. NEURLOGICAL: No LOC, Sz or syncope, blurred vision dizziness or abnormality.. BEHAVIORAL/PSYCH: Negative. ENDOCRINE: Negative. PHYSICAL EXAMINATION: General Appearance: Alert, cooperative, no distress, appears stated age. Neck HEENT: Supple, no lymphadenopathy, no thyroid enlargement, no carotid brui ts. Lungs: Decreased breath sound bilaterally with fine rhonchi no crackles or wheezes. Chest Wall: Decreased expansion with deep inspiration no tenderness and no deformity was found on exam, no costochondral pain or discomfort. Heart: Irregular rate and rhythm, S1, S2 positive S3 positive systolic murmur. Back: Symmetric, no curvature, ROM normal, no CVA tenderness. Abdomen: Soft, non-tender, bowel sounds active all four quadrants, no masses, no organomegaly. Extremities: Extremities normal, atraumatic, no cyanosis positive edema Pulses: 2+ and symmetric. Skin: Skin color, texture, tugor normal, no rashes or lesions. Neurologic: Alert oriented x3 cranial nerves II through XII intact, no motor deficit, no abnormal balance or gait. ASSESSMENT AND PLAN: _Severe dyspnea and shortness of breath combination of congestive heart failure and fluid overload, continue diuretics continue to adjust her medication IV furosemide 40 mg every 12 for the next 2 days probably will be more helpful. _Acute on chronic systolic and diastolic congestive heart failure with sig nificant cardiomyopathy ejection fraction of 45-50 percentile continue slight aggressive medical management continue to watch her daily weight and urine output more regular basis. _Severe tricuspid regurgitation post TTVR at [facility] March 25, 2024 he has done well with it with no major complications still seen for follow- up at [facility] and with Dr. Cabrera in [facility]. _History of cardiomyopathy continue medical management doing slightly better. _Sick sinus syndrome post pacemaker with upgrade to biventricular pacer in 2021 still seen electrophysiology. _A-fib with RVR: Post ablation therapy time to remain on Xarelto and metoprolol. _Hypertension: Well-controlled on losartan 50 mg twice a day and metoprolol succinate 100 mg daily. _Peptic ulcer disease and hiatal hernia: Remain on omeprazole 20 mg a day resume medication. _DVT prophylaxis: Patient will be on Xarelto 20 mg daily. CODE STATUS: Full code. Admit patient to the inpatient status for more than 2 night stay. 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 Valve replacment 03/24/24 [facility]. Past Anesthesia/Blood Transfusion Reactions: No Reported Reaction Additional Past Anesthesia/Blood Transfusion Reaction / Comment(s): Pt has "slight claustrophobia". Pt has never received a blood transfusion. Type of Cardiac Device: Permanent Pacemaker Device Placement Date:: 08/2021 medtronic Past Psychological History: No Psychological Hx Reported Smoking Status: Never smoker Past Alcohol Use History: None Reported Past Drug Use History: None Reported - Past Family History Mother Family Medical History: CVA/TIA Additional Family Medical History / Comment(s): BLOOD CLOT IN THE BRAIN, AT AGE 61. Daughter(s) Family Medical History: Cancer Additional Family Medical History / Comment(s): MELANOMA & SQUAMOUS CELL CANCER Father Family Medical History: Respiratory Disorder Additional Family Medical History / Comment(s): Father of black lung. He work in the [employer]. Medications and Allergies Home Medications Medication Instructions Recorded Confirmed Type Rivaroxaban [Xarelto] 20 mg PO W/SUPPER 12/31/18 05/06/24 History Bimatoprost [Lumigan 0.01% Ophth 1 drop RIGHT EYE DAILY 07/27/21 05/06/24 History Soln] Losartan Potassium [Cozaar] 50 mg PO BID 09/29/21 05/06/24 History Metoprolol Succinate (ER) [Toprol 100 mg PO DAILY 09/29/21 05/06/24 History Xl] Omeprazole [PriLOSEC] 20 mg PO AC-BRKFST 02/19/22 05/06/24 History Furosemide [Lasix] 40 mg PO DAILY 01/13/24 05/06/24 History Calcium Carbonate 1,500 mg PO DAILY 05/06/24 05/06/24 History Allergies Allergy/AdvReac Type Severity Reaction Status Date / Time etodolac [From [facility]] Allergy Rash/Hives Verified 05/06/24 15:42 Physical Exam Vitals: Vital Signs Temp Pulse Resp BP Pulse Ox 05/06/24 15:10 61 18 154/72 94 L 05/06/24 14:30 60 18 135/74 94 L 05/06/24 13:00 61 16 148/89 95 05/06/24 10:49 60 18 154/98 96 05/06/24 09:32 61 20 150/88 94 L 05/06/24 08:37 76 24 160/74 94 L 05/06/24 08:35 26 H 87 L 05/06/24 07:57 97 05/06/24 07:47 68 22 162/80 90 L 05/06/24 07:28 97.4 F L 77 18 154/80 88 L Intake and Output 05/06/24 05/06/24 05/06/24 06:59 14:59 22:59 Other: Weight 75.75 kg Results CBC & Chem 7: 05/06/24 07:59 05/06/24 07:59 Labs: Abnormal Lab Results - Last 24 Hours (Table) 05/06/24 05/06/24 05/06/24 Range/Units 07:59 07:59 07:59 MCHC 30.7 L (31.0-37.0) g/dL RDW 16.0 H (11.5-15.5) % Lymphocytes # 0.9 L (1.0-4.8) k/uL PT (10.0-12.5) sec INR (<1.2) Sodium 130 L (137-145) mmol/L Carbon Dioxide 19 L (22-30) mmol/L Creatinine 0.48 L (0.52-1.04) mg/dL Glucose 153 H (74-99) mg/dL Magnesium 1.5 L (1.6-2.3) mg/dL Urine Protein 1+ H (Negative) Urine Blood Small H (Negative) Ur Leukocyte Esterase Small H (Negative) Urine WBC 14 H (0-5) /hpf Hyaline Casts 5 H (0-2) /lpf Urine Mucus Few H (None) /hpf 05/06/24 Range/Units 08:25 MCHC (31.0-37.0) g/dL RDW (11.5-15.5) % Lymphocytes # (1.0-4.8) k/uL PT 16.5 H (10.0-12.5) sec INR 1.6 H (<1.2) Sodium (137-145) mmol/L Carbon Dioxide (22-30) mmol/L Creatinine (0.52-1.04) mg/dL Glucose (74-99) mg/dL Magnesium (1.6-2.3) mg/dL Urine Protein (Negative) Urine Blood (Negative) Ur Leukocyte Esterase (Negative) Urine WBC (0-5) /hpf Hyaline Casts (0-2) /lpf Urine Mucus (None) /hpf
[2024-05-07 07:28] VITALS: PULSE 61
[2024-05-07 08:40] LABS: Basophils # (A) 0.04 X 10*3/uL (0.00-0.10); Basophils % (A) 0.4 %; Eosinophils # (A) 0.13 X 10*3/uL (0.04-0.35); Eosinophils % (A) 1.5 %; HCT 37.7 % (37.2-46.3); HGB 11.7 g/dL (12.0-15.0); Lymphocytes # (A) 1.25 X 10*3/uL (0.90-5.00); MCH 26.3 pg (27.0-32.0); MCV 84.7 FL (80.0-97.0); Mean Platelet Volume 9.6 FL (9.5-12.2); Monocytes # (A) 1.02 X 10*3/uL (0.20-1.00); Monocytes % (A) 11.4 %; NRBC Per 100 WBC 0 X 10*3/uL (0.00-0.01); Neutrophils # (A) 6.48 X 10*3/uL (1.80-7.70); Neutrophils % (A) 72.5 %; Platelet Count 178 X 10*3/uL (140-440); RBC 4.45 X 10*6/uL (4.10-5.20); RDW 15.9 % (11.5-14.5); WBC 8.94 X 10*3/uL (4.50-10.00)
[2024-05-07 09:04] LABS: ALT 9 U/L (8-44); AST 20 U/L (13-35); Albumin 4.1 g/dL (3.8-4.9); Albumin/Globulin Ratio 1.64 Ratio (1.60-3.17); Alkaline Phosphatase 73 U/L (41-126); Blood Urea Nitrogen 11.9 mg/dL (9.0-27.0); Calcium 9.3 mg/dL (8.7-10.3); Carbon Dioxide 24.9 mmol/L (21.6-31.8); Chloride 95 mmol/L (96-109); Globulin 2.5 g/dL (1.6-3.3); Glucose 125 mg/dL (70-110); Sodium 132 mmol/L (135-145); Total Bilirubin 0.9 mg/dL (0.3-1.2); Total Protein 6.6 g/dL (6.2-8.2)
[2024-05-07] MEDS: CALCIUM CARBONATE 500 MG CHEWABLE PO SCH (09:11)
[2024-05-07] MEDS: LATANOPROST 0.005% OPHTH DROPS 2.5 ML BTL RIGHT EYE SCH (09:11)
[2024-05-07] MEDS: FUROSEMIDE 40 MG TAB PO SCH (09:11)
--- NOTE | 2024-05-07 10:27 | P.PN ---
Subjective This is an 84-year-old female patient of Dr. Cabrera with past medical history of sick sinus syndrome status post initial pacemaker in 2015, chronic atrial fibrillation post atrial fibrillation ablation and status post AV mamie ablation with upgraded BiV pacemaker in September 2021, hypertension, mild CAD, mild cardiomyopathy with EF of 45 to 50%, severe tricuspid regurgitation, heart failure, moderate mitral regurgitation. We have been asked to evaluate the patient for heart failure. Patient complains that she is retaining water of this been going on for a long time but worse over this past week. She denies any weight gain. She states she has not had daily difficulty breathing. She is urinating a lot. Blood pressure 154/98, heart rate 60, pulse ox 96% on 2 L nasal cannula. EKG: Ventricularly paced rhythm Chest x-ray: Correlate for mild venous congestion otherwise consider interstitial pneumonia. Laboratory studies: WBC 7.1, hemoglobin 11.6. INR 1.6. Creatinine 0.48, potassium 4.3, sodium 130. Troponin negative x 2. proBNP 7670. Influenza A, influenza B, RSV, COVID-19 not detected. Home cardiac medications: Echocardiogram 09/20/2023 revealed EF 50 to 55%, LV hyperdynamic systolic function, RV moderately dilated, mitral valve with moderate regurgitation, mild MAC, tricuspid valve with severe regurgitation, highly eccentric, mild regurgitation of aortic valve. BRANDON 01/02/2024 EF 66%, mildly enlarged RV, RVSP 66 mmHg. PFO by color-flow with predominantly right to left shunting across the atrial septum. Mild mitral regu rgitation, severe tricuspid regurgitation. Mechanism appears to be leaflet impingement from the right ventricular pacemaker lead. Mild aortic regurgitation. Left and right heart catheterization performed 11/13/2022 revealed left main 0%, LAD 20 to 23%, left circumflex 0%, RCA 20 to 30%. 05/07 patient seen and examined. Patient states she is feeling much better. Denies any chest pain or pressure. Creatinine stable. Sodium increasing up to 132. Echocardiogram performed which shows EF 60% with trace mitral regurgitation, normally functioning tricuspid valve replacement with mean gradient 3 mmHg and trace tricuspid regurgitation and no pericardial effusion. Physical examination: Gen: This is a 84-year-old female resting in no acute distress VS: reviewed HEENT: Head is atraumatic, normocephalic. Pupils equal, round. Sclerae is anicteric. NECK: Supple. No JVD. LUNGS: Diminished breath sounds. No intercostal retractions. HEART: Irregular rate and rhythm. No murmur. ABDOMEN: Soft No tenderness. EXTREMITIES: Minimal pedal edema. No calf tenderness. NEUROLOGICAL: Patient is awake, alert and oriented x3. Assessment: Acute on chronic diastolic heart failure Chest pain, rule out acute coronary syndrome History of sick sinus syndrome status post pacemaker upgraded to BiV pacemaker Hypertension Known mild coronary artery disease Cardiomyopathy with EF 45 to 50% Severe tricuspid regurgitation status post valve replacement 03/24/2024 at [facility] Plan: Patient has been doing well. Additional dose of IV Lasix however appears stable for discharge home today with outpatient follow-up. Echo stable with no effusion. Objective - Vital Signs Vital signs: Vital Signs Temp 97.7 F 05/07/24 07:20 Pulse 61 05/07/24 07:20 Resp 17 05/07/24 08:00 BP 108/63 05/07/24 07:20 Pulse Ox 91 L 05/07/24 08:40 FiO2 Intake & Output 05/06/24 05/07/24 05/07/24 18:59 06:59 18:59 Intake Total 118 Output Total 400 Balance -400 118 Weight 75.75 kg Intake: Oral 118 Output: Urine 400 Other: Voiding Method Toilet - Labs CBC & Chem 7: 05/07/24 05:34 05/07/24 05:34 Labs: Abnormal Lab Results - Last 24 Hours (Table) 05/07/24 05/07/24 Range/Units 05:34 05:34 Hgb 11.7 L (12.0-15.0) g/dL MCH 26.3 L (27.0-32.0) pg MCHC 31.0 L (32.0-37.0) g/dL RDW 15.9 H (11.5-14.5) % Monocytes # 1.02 H (0.20-1.00) X 10*3/uL Sodium 132 L (135-145) mmol/L Chloride 95 L (96-109) mmol/L Anion Gap 12.10 H (4.00-12.00) mmol/L Glucose 125 H (70-110) mg/dL
[2024-05-07] MEDS: FUROSEMIDE 10 MG/ML 4 ML VIAL IV STA (10:54)
[2024-05-07 11:31] LABS: Magnesium 1.7 mg/dL (1.5-2.4)
[2024-05-07 13:25] VITALS: BMI 26.9
[2024-05-07 14:17] VITALS: BP 112/67; RESP 18; TEMP 98
--- NOTE | 2024-05-07 14:22 | CA ---
Transthoracic Echo Report Name: Ginny Murillo Age: 84 Gender: F : 1940 Exam Date: 05/06/2024 14:41 Exam Location: [facility] Ht (in): 66 Wt (lb): 167 Ordering Physician: Bao Pike MD Attending/Referring Phys: Principal Programmer Michelle Mohan RDCS Procedure CPT: Indications: chf Cardiac Hx: Technical Quality: Fair Contrast 1: Total Dose (mL): Contrast 2: Total Dose (mL): MEASUREMENTS (Male / Female) Normal Values 2D ECHO LV Diastolic Diameter PLAX 5.1 cm 4.2 - 5.9 / 3.9 - 5.3 cm LV Systolic Diameter PLAX 3.3 cm IVS Diastolic Thickness 0.8 cm 0.6 - 1.0 / 0.6 - 0.9 cm LVPW Diastolic Thickness 1.0 cm 0.6 - 1.0 / 0.6 - 0.9 cm LV Relative Wall Thickness 0.3 LVOT Diameter 2.1 cm Ascending Aorta Diameter 3.4 cm DOPPLER AV Peak Velocity 109.9 cm/s AV Peak Gradient 4.8 mmHg AV Mean Velocity 73.3 cm/s AV Mean Gradient 2.4 mmHg AV Velocity Time Integral 21.3 cm LVOT Peak Velocity 84.1 cm/s LVOT Peak Gradient 2.8 mmHg LVOT Velocity Time Integral 16.8 cm LVOT Stroke Volume 57.7 cm??? LVOT Stroke Volume Index 31.2 ml/m??? LVOT Cardiac Index 1827.9 cm???/min???m??? AV Area Cont Eq vti 2.7 cm??? AV Area Cont Eq pk 2.6 cm??? TV Peak Velocity 127.6 cm/s PV Peak Velocity 88.6 cm/s PV Peak Gradient 3.1 mmHg FINDINGS Left Ventricle Left ventricular ejection fraction is estimated at 60 %. Left ventricular cavity size normal. Left ventricular wall thickness normal. No obvious regional wall motion abnormalities. Right Ventricle Right ventricular dilatation with reduced function. Unable to estimate the right ventricular systolic pressure. Right Atrium Right atrium not well visualized. Left Atrium Left atrial dilatation by visual. Mitral Valve Structurally normal mitral valve. No evidence for mitral valve prolapse. No mitral stenosis. Trace mitral regurgitation. Aortic Valve Trileaflet aortic valve. No aortic stenosis. Trace to mild aortic regurgitation. Tricuspid Valve Tricuspid valve replacement. Mean gradient 3mmHg. Trace tricuspid regurgitation. Pulmonic Valve Structurally normal pulmonic valve. No pulmonic stenosis. Mild pulmonic regurgitation. Pericardium No pericardial effusion. Aorta Normal size aortic root and proximal ascending aorta. CONCLUSIONS Left ventricular ejection fraction 60% Trace mitral regurgitation Trace to mild aortic regurgitation Trace tricuspid regurgitation No pericardial effusion Previewed by: Dr. Sylvain Cabrera DO (Electronically Signed) Final Date: 07 May 2024 14:21
[2024-05-08] MEDS ORDERED: PANTOPRAZOLE 40 MG TABLET PO SCH (07:30)
--- NOTE | 2024-05-10 09:09 | P.DS ---
Providers Date of admission: 05/06/24 09:54 Attending physician: Madhu Milner Consults: 05/06/24 09:49 Consult Physician Routine Consulting Provider: [facility] Consult Reason/Comments: chf Do you want consulting provider notified?: Yes Primary care physician: Madhu Milner [facility] Course: HISTORY OF PRESENT ILLNESS: 84-year-old with active medical history of A-fib, congestive heart failure, valvular heart disease, severe GERD, history of rheumatoid arthritis, postcardiac ablation in the past, post pacemaker, chronic history of lower back pain with bulging disc, recurrent palpitation, history of peptic ulcer disease. She is seeing cardiology on regular basis [address] Cabrera patient who had sick sinus syndrome post pacemaker back in 2015 post atrial fibrillation ablation and post AV mamie ablation with upgrade to biventricular pacer in September 2021 who also suffers from mild cardiomyopathy with low ejection fraction had severe tricuspid regurgitation post TTVR at [facility] in April 20, 2024 has been seen by cardiology at [facility] for a regular basis. She presented to the emergency department At [facility] on 05/06/2024 complaining of severe weakness with increased shortness of breath mild tightness and pressure was seen and evaluated her finding including chest x-ray showed significant venous congestion consistent with fluid overload heart failure, laboratory value with her BNP 7670 normal kidney function troponin is negative normal hemoglobin and white blood cell. EKG showed electronic ventricular pacer with pulse running in the 70s. Patient was diagnosed with acute congestive heart failure combined systolic and diastolic acute on chronic continue diuretics consult cardiology admit patient to the hospital. According to patient her diet has been changed quite. Has been consuming a bit more salt than expected with more fluid and felt start retaining more fluid than before. She is very compliant to her medication. 05/07/2024: Patient has done quite well proBNP was elevated was diagnosed with congestive heart failure exacerbation most likely systolic dysfunction most likely related to the challenges on her diet with more salt and water intake. Was seen and evaluated by cardiology adjusted her diuretics and have her on aggressive diuretics management reviewed her valve procedure and reviewed her ca rdiomyopathy with ejection fraction being 45-50 percentile patient is not having any further symptoms at this point is not having any chest pain or angina. Cardiology felt with adjustment of medication patient should be able to go home to follow-up in the next few days as an outpatient and she is stable doing well medically. REVIEW OF SYSTEMS: CONSTITUTIONAL: Well-developed no acute respiratory distress. EYES: No icterus sclerae, no conjunctivitis. EARS, NOSE, MOUTH, THROAT, and FACE: No sore throat, lymphadenopathy, carotid bruits or deformity. RESPIRATORY: Positive shortness of breath no cough or wheezes. CARDIOVASCULAR: Positive PND orthopnea palpitation. GASTROINTESTINAL: No Abd pain, Nausea or vomiting, no Diarrhea or constipation, No GI Bleed, no distention or masses. GENITOURINARY: Negative for Hematuria or UTI, no kidney stones. INTEGUMENT/BREAST: Negative for any muscular injury with mild osteoarthritis.. HEMATOLOGIC/LYMPHATIC: Negative for bleed or purpura. MUSCULOSKELTAL: Negative for Myalgia or arthralgia. NEURLOGICAL: No LOC, Sz or syncope, blurred vision dizziness or abnormality.. BEHAVIORAL/PSYCH: Negative. ENDOCRINE: Negative. PHYSICAL EXAMINATION: General Appearance: Alert, cooperative, no distress, appears stated age. Neck HEENT: Supple, no lymphadenopathy, no thyroid enlargement, no carotid bruits. Lungs: Decreased breath sound bilaterally with fine rhonchi no crackles or wheezes. Chest Wall: Decreased expansion with deep inspiration no tenderness and no deformity was found on exam, no costochondral pain or discomfort. Heart: Irregular rate and rhythm, S1, S2 positive S3 positive systolic murmur. Back: Symmetric, no curvature, ROM normal, no CVA tenderness. Abdomen: Soft, non-tender, bowel sounds active all four quadrants, no masses, no organomegaly. Extremities: Extremities normal, atraumatic, no cyanosis positive edema Pulses: 2+ and symmetric. Skin: Skin color, texture, tugor normal, no rashes or lesions. Neurologic: Alert oriented x3 cranial nerves II through XII intact, no motor deficit, no abnormal balance or gait. ASSESSMENT AND PLAN: _Severe dyspnea and shortness of breath combination of congestive heart failure and fluid overload, continue diuretics continue to adjust her medication IV furosemide 40 mg every 12 for the next 2 days probably will be more helpful. _Acute on chronic systolic and diastolic congestive heart failure with significant cardiomyopathy ejection fraction of 45-50 percentile continue slight aggressive medical management continue to watch her daily weight and urine output more regular basis. _Severe tricuspid regurgitation post TTVR at [facility] March 25, 2024 he has done well with it with no major complications still seen for follow- up at [facility] and with [facility]. Cabrera [facility]. _History of cardiomyopathy continue medical management doing slightly better. _Sick sinus syndrome post pacemaker with upgrade to biventricular pacer in 2021 still seen electrophysiology. _A-fib with RVR: Post ablation therapy time to remain on Xarelto and metoprolol. _Hypertension: Well-controlled on losartan 50 mg twice a day and metoprolol succinate 100 mg daily. _Peptic ulcer disease and hiatal hernia: Remain on omeprazole 20 mg a day resume medication. Discussion: Patient has done very well with IV diuretics fluid restriction and watching her intake and output has done very well sure. Time. Seen and evaluated cardiology review her echocardiogram with the severe tricuspid regurgitation was repaired recently ejection fraction with mild cardiomyopathy EF 45-50 percentile. Adjustment of her medication has done very well lost over 6 pounds in short period of time with IV diuretics was stable in the afternoon on 05/07/2024 to be discharged home. Hospital course: She was admitted on 05/06/2024 with much worsening dyspnea and shortness of breath she had TTVR at [facility] April 20 for tricuspid repair via catheter and has done very well at the time of her presentation to the emergency department with a shortness of breath her BNP was 7670 with normal kidney function EKG showed electrical pacing with pulse rate of 70. Patient chest x- ray showed slight vascular congestion consistent with CHF. Was kept in the hospital started on IV diuretics with aggressive management initially and then switched to oral diuretics. Patient was seen and evaluated by cardiology felt to be stable with the symptom of her cardiomyopathy this is an acute congestive heart failure systolic and diastolic chronic with acute component related to probably salt and fluid overload with adjustment in medication has done very well and overnight had lost 6 pounds made her feel much better. No chest pain or angina CK troponin are negative the patient is feeling well to be discharged home on 05/07/2024. Time spent on patient discharge was over 35 minutes. Patient Condition at Discharge: Stable Plan - Discharge Summary New Discharge Prescriptions: New Cefuroxime [Ceftin] 250 mg PO BID 5 Days #10 tab Continue Rivaroxaban [Xarelto] 20 mg PO W/SUPPER Metoprolol Succinate (ER) [Toprol XL] 100 mg PO DAILY Furosemide [Lasix] 40 mg PO DAILY Calcium Carbonate 1,500 mg PO DAILY Bimatoprost [Lumigan 0.01% Oph Soln] 1 drop RIGHT EYE DAILY Losartan Potassium [Cozaar] 50 mg PO BID Omeprazole [facility]SEC] [facility] Medication List Rivaroxaban [Xarelto] 20 mg PO W/SUPPER 12/31/18 [History] Bimatoprost [Lumigan 0.01% Ophth Soln] 1 drop RIGHT EYE DAILY 07/27/21 [History] Losartan Potassium [Cozaar] 50 mg PO BID 09/29/21 [History] Metoprolol Succinate (ER) [Toprol XL] 100 mg PO DAILY 09/29/21 [History] Omeprazole [PriLOSEC] 20 mg PO AC-BRKFST 02/19/22 [History] Furosemide [Lasix] 40 mg PO DAILY 01/13/24 [History] Calcium Carbonate 1,500 mg PO DAILY 05/06/24 [History] Cefuroxime [Ceftin] 250 mg PO BID 5 Days #10 tab 05/07/24 [Rx] Follow up Appointment(s)/Referral(s): Sylvain Cabrera DO [STAFF PHYSICIAN] - 05/15/24 2:30 pm Madhu Milner MD [Primary Care Provider] - 1-2 days Patient Instructions/Handouts: Heart Failure (DC), Heart Failure (GEN) Activity/Diet/Wound Care/Special Instructions: FOLLOW UP DIRECTED, SOONER FOR WORSENING SYMPTOMS PROBLEMS OR CONCERNS. Discharge Disposition: HOME WITH HOME HEALTH SERVICES
== END 2024-05-07 16:06 | disposition home health service (06) ==
LOC: EC 07:25 → 6NMEDSUR 09:54
PROVIDERS: ADMIT Internal Medicine Geriatric Medicine; ATTEND Internal Medicine Geriatric Medicine
DX: I11.0 Hypertensive heart disease with heart failure (principal); I50.43 Acute on chronic combined systolic (congestive) and diastolic (congestive) heart failure; I42.9 Cardiomyopathy, unspecified; I48.20 Chronic atrial fibrillation, unspecified; I08.1 Rheumatic disorders of both mitral and tricuspid valves; I25.10 Atherosclerotic heart disease of native coronary artery without angina pectoris; I49.5 Sick sinus syndrome; H40.9 Unspecified glaucoma; K21.9 Gastro-esophageal reflux disease without esophagitis; K44.9 Diaphragmatic hernia without obstruction or gangrene; M06.9 Rheumatoid arthritis, unspecified; M81.0 Age-related osteoporosis without current pathological fracture; G89.29 Other chronic pain; Z87.11 Personal history of peptic ulcer disease; Z95.0 Presence of cardiac pacemaker; Z95.2 Presence of prosthetic heart valve; Z79.899 Other long term (current) drug therapy; Z79.01 Long term (current) use of anticoagulants
CPT/HCPCS: 96376; 96365; 96375; 99285; 36415; 94760; 93005; 93306; 83880; 80053 ×2; 84443; 83735 ×2; 84484; 85025 ×2; 85610; 85730; 81001; 87086; 87636; 71046; G0378 ×2; J1940 ×2; J0696

== ENCOUNTER → 2024-08-10 | Outpatient (CLI) | payer MEDICARE ==
--- NOTE | 2024-08-10 11:57 | CT ---
EXAMINATION TYPE: CT chest wo con DATE OF EXAM: 08/10/2024 COMPARISON: Chest CT February 04, 2023 HISTORY: pulmonary fibrosis CT DLP: 811.8 mGycm. Automated Exposure Control for Dose Reduction was Utilized. TECHNIQUE: CT scan of the thorax is performed without IV contrast. High resolution CT with 1 mm sequ ences obtained in 10 mm intervals in supine and prone technique. FINDINGS: Suboptimal study as patient could not complete prone imaging. LUNGS: Overall mosaic attenuation bilaterally most prominent in the the upper lungs which is nonspeci fic with intralobular septal thickening and reticulation seen greatest involving the bilateral lower lungs. No pleural effusion or pneumothorax. No large masses. MEDIASTINUM: Cardiomegaly with multiphasic pacemaker is redemonstrated. There is at least moderate bi atrial dilatation. No pericardial effusion. Coronary artery calcification and/or stent in the LAD dis tribution again seen. OTHER: No additional significant abnormality is seen. IMPRESSION: Suboptimal study. Persistent cardiomegaly and at least moderate bilateral fibrotic change in the lower lungs. [facility], , 08/10/2024 11:55 AM
== END | disposition home or self-care (01) ==
LOC: RADCTMAIN 10:53
PROVIDERS: ATTEND Internal Medicine Critical Care Medicine
DX: J84.10 Pulmonary fibrosis, unspecified (principal); I51.7 Cardiomegaly
CPT/HCPCS: 71250

== ENCOUNTER 2024-11-08 06:56 | Observation (INO) | payer MEDICARE ==
[2024-11-08] MEDS: LIDOCAINE 4% PATCH TOPICAL STA (07:36)
[2024-11-08] MEDS: MORPHINE SULFATE 4 MG/ML SYRINGE IVP STA (07:37)
[2024-11-08 07:39] LABS: Basophils # (A) 0.03 10*3/uL (0.00-0.10); Basophils % (A) 0.4 %; Eosinophils # (A) 0.23 10*3/uL (0.04-0.35); Eosinophils % (A) 3.3 %; HCT 39.3 % (37.2-46.3); HGB 12.5 g/dL (12.0-15.0); Lymphocytes # (A) 1.23 10*3/uL (0.90-5.00); Lymphocytes % (A) 17.5 %; MCH 26.8 pg (27.0-32.0); MCHC 31.8 g/dL (32.0-37.0); MCV 84.2 fL (80.0-97.0); Mean Platelet Volume 9.4 fL (9.5-12.2); Monocytes # (A) 0.62 10*3/uL (0.20-1.00); Monocytes % (A) 8.8 %; Neutrophils # (A) 4.91 10*3/uL (1.80-7.70); Neutrophils % (A) 69.7 %; Platelet Count 148 10*3/uL (140-440); RBC 4.67 10*6/uL (4.10-5.20); RDW 17.4 % (11.5-14.5); WBC 7.04 10*3/uL (4.50-10.00)
--- NOTE | 2024-11-08 07:40 | ED ---
General Adult HPI - General Chief complaint: Back Pain/Injury Stated complaint: back pain Time Seen by Provider: 11/08/24 07:18 Source: patient, RN notes reviewed, old records reviewed Mode of arrival: EMS Limitations: no limitations - History of Present Illness Initial comments: Patient is an 84-year-old female who presents emergency department complaining of back pain. She does have a history of a lumbar spine fracture and did have surgery with Dr. Yin. Patient had a compression fracture of L1. Patient had a kyphoplasty of L1 on February 26, 2024. States she has been progressing well since then however 2 to 3 days ago began experiencing lower back pain that is progressively worsened. Denies any saddle paresthesias. Denies any leg paralysis. Denies any urinary or bowel incontinence or retention. States the pain is more severe which is why she was she presents for further evaluation at this time. Currently is not on any pain meds at home. Patient has a history remarkable for congestive heart failure, atrial fibrillation, hypertension, GERD. Presents for further evaluation at this time. Denies any acute trauma. Denies any known injury to cause this patient's injury. - Related Data Home Medications Medication Instructions Recorded Confirmed Rivaroxaban [Xarelto] 20 mg PO W/SUPPER 12/31/18 11/08/24 Bimatoprost [Lumigan 0.01% Ophth 1 drop RIGHT EYE HS 07/27/21 11/08/24 Soln] Metoprolol Succinate (ER) [Toprol 100 mg PO DAILY 09/29/21 11/08/24 XL] Furosemide [Lasix] 40 mg PO BID 01/13/24 11/08/24 Losartan [Cozaar] 50 mg PO BID 11/08/24 11/08/24 Potassium Chloride 10 meq PO DAILY 11/08/24 11/08/24 predniSONE See Taper PO BID 11/08/24 11/08/24 traMADol HCL 50 mg PO BID 11/08/24 11/08/24 Allergies Allergy/AdvReac Type Severity Reaction Status Date / Time etodolac [From [facility]] Allergy Rash/Hives Verified 11/08/24 10:47 Review of Systems ROS Statement: Those systems with pertinent positive or pertinent negative responses have been documented in the HPI. Review of Systems: CONST: Denies fever EYES: Denies blurry vision ENT: Denies nasal congestion C/V: Denies Chest pain RESP: Denies shortness of breath GI: Denies abdominal pain : Denies dysuria SKIN: Denies rash. MSK: Endorses back pain NEURO: Denies headache ROS Other: All systems not noted in ROS Statement are negative. Past Medical History Past Medical History: Atrial Fibrillation, Cancer, Heart Failure, Eye Disorder, GERD/Reflux, Hypertension, Rheumatoid Arthritis (RA) Additional Past Medical History / Comment(s): Skin cancer with removals, chronic back pain/herniated/hairline fractures/osteoporosis, glaucoma right eye., research biologist told her spine is collapsing and she has lost 30% of her bilateral lung capacity, scarring on lungs., sob with activity., past dysphagia, palpit ations, hx ulcer, poor appetite History of Any Multi-Drug Resistant Organisms: None Reported Past Surgical History: Back Surgery, Cardiac Ablation, Cholecystectomy, Pacemaker Additional Past Surgical History / Comment(s): Cardiac ablations, cardioversion, medtronic pacemaker "dependent" per pt., kyphoplasty, colonoscopy, skin cancer removal, bilateral cataract surgery, EGD with esophageal stent. Valve replacment 03/24/24 [facility]. Past Anesthesia/Blood Transfusion Reactions: No Reported Reaction Additional Past Anesthesia/Blood Transfusion Reaction / Comment(s): Pt has "slig ht claustrophobia". Pt has never received a blood transfusion. Type of Cardiac Device: Permanent Pacemaker Device Placement Date:: 08/2021 medtronic Past Psychological History: No Psychological Hx Reported Smoking Status: Never smoker Past Alcohol Use History: None Reported Past Drug Use History: None Reported - Past Family History Mother Family Medical History: CVA/TIA Additional Family Medical History / Comment(s): BLOOD CLOT IN THE BRAIN, AT AGE 61. Daughter(s) Family Medical History: Cancer Additional Family Medical History / Comment(s): MELANOMA & SQUAMOUS CELL CANCER Father Family Medical History: Respiratory Disorder Additional Family Medical History / Comment(s): Father of black lung. He work in the [employer]. General Exam - General Exam Comments Initial Comments: General: Appears in mild to moderate distress. HEAD: Normal with no signs of head trauma. EYES: EOMI ENT: Hearing grossly intact, normal oropharynx. RESPIRATORY: Clear breath sounds bilaterally. No wheezes, rales, or rhonchi. C/V: Regular rate and rhythm. S1 and S2 auscultated. Peripheral pulses 2+ intact throughout. No evidence of peripheral edema. ABD: Abd is soft, nontender, nondistended EXT: No obvious deformity. Decreased range of motion of the lower back secondary to pain. Tenderness palpation between primarily L2 and L4 and of the paraspinal muscles of L2-L4. No obvious deformity palpated. No cervical or thoracic spine tenderness to palpation. SKIN: No rashes or lesions observed on exposed skin. NEURO: Alert and oriented x 4. Limitations: no limitations Course Vital Signs 11/08/24 11/08/24 11/08/24 06:58 09:00 10:00 Temperature 97.9 F Pulse Rate 69 Respiratory 22 Rate Blood Pressure 147/72 144/77 131/61 O2 Sat by Pulse 98 Oximetry 11/08/24 11/08/24 10:19 10:47 Temperature 97.2 F L Pulse Rate 60 Respiratory 14 Rate Blood Pressure O2 Sat by Pulse 96 Oximetry Medical Decision Making - Medical Decision Making Was pt. sent in by a medical professional or institution (, PA, ROLLER PRESSER OPERATOR, urgent care, hospital, or longterm...) When possible be specific @ -No Did you speak to anyone other than the patient for history (EMS, parent, family, police, friend...)? What history was obtained from this source @ -No Did you review nursing and triage notes (agree or disagree)? Why? @ -I reviewed and agree with nursing and triage notes Were old charts reviewed (outside hosp., previous admission, EMS record, old EKG, old radiological studies, urgent care reports/EKG's, longterm records)? Report findings @ -No old charts were reviewed Differential Diagnosis (chest pain, altered mental status, abdominal pain women, abdominal pain men, vaginal bleeding, weakness, fever, dyspnea, syncope, headache, dizziness, GI bleed, back pain, seizure, CVA, palpatations, mental health, musculoskeletal)? @ -Differential Back Pain: Strain, zoster, cauda equina syndrome, epidural abscess, vertebral osteomyelitis, discitis, fracture, subluxation, disc herniation, DJD, spinal stenosis, dissection, AAA, pancreatitis, peptic ulcer disease, pyelonephritis, kidney stone, this is not meant to be an all-inclusive list. EKG interpreted by me (3pts min.). @ -None done X-rays interpreted by me (1pt min.). @ -None done CT interpreted by me (1pt min.). @ -CT abdomen pelvis reveals no obvious acute intra-abdominal process. Patient's lumbar spine CT reveals no evidence of acute fracture or injury. Patient does have some degenerative changes present as well as the postsurgical findings at L1. Patient does have some spinal stenosis. Some mild neural foraminal encroachment at L5-S1 as well. U/S interpreted by me (1pt. min.). @ -None done What testing was considered but not performed or refused? (CT, X-rays, U/S, labs)? Why? @ -None What meds were considered but not given or refused? Why? @ -None Did you discuss the management of the patient with other professionals (professionals i.e. , PA, ROLLER PRESSER OPERATOR, lab, RT, psych nurse, social media content specialist, solicitor patent, teacher, disbursing officer, telephonic nurse case manager)? Give summary @ -No Was smoking cessation discussed for >3mins.? @ -No Was critical care preformed (if so, how long)? @ -No Were there social determinants of health that impacted care today? How? (Homelessness, low income, unemployed, alcoholism, drug addiction, transportation, low edu. Level, literacy, decrease access to med. care, prison, rehab)? @ -No Was there de-escalation of care discussed even if they declined (Discuss DNR or withdrawal of care, Hospice)? DNR status @ -No What co-morbidities impacted this encounter? (DM, HTN, Smoking, COPD, CAD, Cancer, CVA, ARF, Chemo, Hep., AIDS, mental health diagnosis, sleep apnea, morbid obesity)? @ -None Was patient admitted / discharged? Hospital course, mention meds given and route, prescriptions, significant lab abnormalities, going to OR and other pertinent info. @ -Patient presents with acute on chronic back pain. Has a history of a known L1 compression fracture status post kyphoplasty in February 2024. States she had been progressing well until the last 2 to 3 days when she began experiencing atraumatic back pain again. Does have a history of osteoporosis. Vitals are within acceptable limits. No red flag symptoms to suggest cauda equina syndrome. We will obtain CT imaging of the lumbar spine as well as CT imaging of the abdomen pelvis without contrast. We also obtain basic labs. She was in agreement this plan. She will receive morphine, lidocaine patch, Zofran. Patient is chronically on oxygen at home and she is currently saturating well on her baseline nasal cannula oxygen. Laboratory studies unremarkable. CT abdomen pelvis reveals no obvious acute intra-abdominal process. Patient's lumbar spine CT reveals no evidence of acute fracture or injury. Patient does have some degenerative changes present as well as the postsurgical findings at L1. Patient does have some spinal stenosis. Some mild neural foraminal encroachment at L5-S1 as well. I discussed results with patient and family. They would like the patient to be admitted for PT and OT eval as they feel unsafe with the patient going home and she was in agreement. Patient therefore will be admitted for debility as well as her back pain. Her spine physician, Dr. Yin is consulted. I spoke with the admitting provider, Dr. Alvarenga of [facility] who accepted the admission. Undiagnosed new problem with uncertain prognosis? @ -No Drug Therapy requiring intensive monitoring for toxicity (Heparin, Nitro, Insulin, Cardizem)? @ -No Were any procedures done? @ -No Diagnosis/symptom? @ -Debility, back pain Acute, or Chronic, or Acute on Chronic? @ -Acute Uncomplicated (without systemic symptoms) or Complicated (systemic symptoms)? @ -Complicated Side effects of treatment? @ -None Exacerbation, Progression, or Severe Exacerbation] @ -No Poses a threat to life or bodily function? @ -Potentially, yes - Lab Data Result diagrams: 11/08/24 07:28 11/08/24 07:28 Lab Results 11/08/24 11/08/24 11/08/24 Range/Units 07:28 07:28 07:34 WBC 7.04 (4.50-10.00) 10*3/uL RBC 4.67 (4.10-5.20) 10*6/uL Hgb 12.5 (12.0-15.0) g/dL Hct 39.3 (37.2-46.3) % MCV 84.2 (80.0-97.0) fL MCH 26.8 L (27.0-32.0) pg MCHC 31.8 L (32.0-37.0) g/dL Plt Count 148 (140-440) 10*3/uL MPV 9.4 L (9.5-12.2) fL Immature Gran % (Auto) 0.3 % Neutrophils % 69.7 % Lymphocytes % 17.5 % Monocytes % 8.8 % Eosinophils % 3.3 % Basophils % 0.4 % Immature Gran # 0.02 (0.00-0.04) 10*3/uL Neutrophils # 4.91 (1.80-7.70) 10*3/uL Lymphocytes # 1.23 (0.90-5.00) 10*3/uL Monocytes # 0.62 (0.20-1.00) 10*3/uL Eosinophils # 0.23 (0.04-0.35) 10*3/uL Basophils # 0.03 (0.00-0.10) 10*3/uL Sodium 130 L (137-145) mmol/L Potassium 4.3 (3.5-5.1) mmol/L Chloride 98 (98-107) mmol/L Carbon Dioxide 20 L (22-30) mmol/L Anion Gap 12 mmol/L BUN 16 (7-17) mg/dL Creatinine 0.61 (0.52-1.04) mg/dL Est GFR (CKD-EPI)AfAm >90 (>60 ml/min/1.73 sqM) Est GFR (CKD-EPI)NonAf 84 (>60 ml/min/1.73 sqM) Glucose 120 H (74-99) mg/dL Calcium 9.3 (8.4-10.2) mg/dL Total Bilirubin 0.9 (0.2-1.3) mg/dL AST 22 (14-36) U/L ALT 17 (4-34) U/L Alkaline Phosphatase 88 (38-126) U/L Total Protein 6.4 (6.3-8.2) g/dL Albumin 3.8 (3.5-5.0) g/dL Urine Color Light Yellow Urine Appearance Clear (Clear) Urine pH 6.0 (5.0-8.0) Ur Specific [place] 1.017 (1.001-1.035) Urine Protein Negative (Negative) Urine Glucose (UA) Negative (Negative) Urine Ketones Negative (Negative) Urine Blood Trace H (Negative) Urine Nitrite Negative (Negative) Urine Bilirubin Negative (Negative) Urine Urobilinogen <2.0 (<2.0) mg/dL Ur Leukocyte Esterase Small H (Negative) Urine RBC 4 (0-5) /hpf Urine WBC 8 H (0-5) /hpf Ur Squamous Epith Cells <1 (0-4) /hpf Urine Mucus Rare H (None) /hpf Disposition Clinical Impression: Back pain, Debility Disposition: ADMITTED IP TO THIS HOSP Condition: Stable Time of Disposition: 10:04
[2024-11-08 08:01] LABS: ALT 17 U/L (4-34); AST 22 U/L (14-36); African American GFR (CKD) >90 (>60 ml/min/1.73 sqM); Albumin 3.8 g/dL (3.5-5.0); Alkaline Phosphatase 88 U/L (38-126); Anion Gap 12 mmol/L; Blood Urea Nitrogen 16 mg/dL (7-17); Calcium 9.3 mg/dL (8.4-10.2); Carbon Dioxide 20 mmol/L (22-30); Chloride 98 mmol/L (98-107); Glucose 120 mg/dL (74-99); Non-African American GFR(CKD) 84 (>60 ml/min/1.73 sqM); Potassium 4.3 mmol/L (3.5-5.1); Sodium 130 mmol/L (137-145); Total Bilirubin 0.9 mg/dL (0.2-1.3); Total Protein 6.4 g/dL (6.3-8.2)
--- NOTE | 2024-11-08 08:05 | CT ---
EXAMINATION TYPE: CT abdomen pelvis wo con DATE OF EXAM: 11/08/2024 COMPARISON: 08/01/2021 CLINICAL INDICATION: Female, 84 years old with history of back pain, nausea; PHH, abd pain/back pain TECHNIQUE: CT scan of the abdomen and pelvis is performed without oral or IV contrast. CT DLP: 1348.[address] CTDI: mGy Automated exposure control for dose reduction was used. FINDINGS: Within the limitations of a non-contrast study, the following observations are made. The pulmonary vasculature in the lung bases appears prominent and there is diffuse groundglass opacit y. There is a prosthetic aortic valve in marked cardiomegaly. The findings suggest CHF. Gallbladder surgically absent.. There is no biliary ductal dilatation. There is no organomegaly of the liver, pancreas, spleen or adrenal glands. There are no renal calcifications or hydronephrosis. The caliber of the abdominal aorta is normal and there is no retroperitoneal adenopathy or hemorrhage . The bowel loops are normal in caliber is no evidence of obstruction. No inflammatory changes are iden tified in the mesentery and there is no free intraperitoneal air or fluid. There is no pelvic mass, free fluid, abscess or adenopathy. There is moderate to marked diverticulosi s of the colon without CT evidence of diverticulitis. The osseous structures and soft tissues are unremarkable. IMPRESSION: 1. Findings suggest CHF. 2. No acute changes within the abdomen or pelvis. 3. Cholecystectomy. [facility], , 11/08/2024 8:03 AM
--- NOTE | 2024-11-08 08:10 | CT ---
EXAMINATION TYPE: CT lumbar spine wo con DATE OF EXAM: 11/08/2024 7:56 AM COMPARISON: CLINICAL INDICATION: Female, 84 years old with history of pain; PHH, back pain TECHNIQUE: Unenhanced CT of the lumbar spine was performed. Bone and soft tissue window settings are submitted as well as coronal and sagittal reconstructions. CT DLP: [address] CTDI: mGy Automated exposure control for dose reduction was used. FINDINGS: There is a severe compression fracture of L1 status post vertebroplasty. There is 10% retropulsion se condary to the L1 fracture resulting in moderate spinal stenosis The remaining lumbar vertebral segme nts are normal in height without fracture. There is no malalignment. Disc spaces are well preserved in height. There is mild degenerative disease at the L5-S1 level where there is mild spondylosis and vacuum phenomena. There are no large disc herniations. No thickening of the ligamentum flavum and mild facet hypertrophy there is a mild spinal stenosis at the L4-5 level There is moderate to severe bony neural foraminal encroachment at the L5-S1 level on the left.. IMPRESSION: 1. Vertebroplasty of L1 with severe compression fracture and retropulsion resulting in moderate spina l stenosis. No new or acute lumbar spine fractures 2. No lumbar spine malalignment. 3. mild degenerative disease at the L5-S1 level. 4. No large disc herniations. 5. Mild spinal stenosis at the L4-5 level. 6. Severe bony neural foraminal encroachment at the L5-S1 level on the left. [facility], , 11/08/2024 8:08 AM
[2024-11-08 08:31] LABS: Appearance,Urine Clear (Clear); Bilirubin,Urine Negative (Negative); Blood,Urine Trace (Negative); Color,Urine Light Yellow; Glucose,Urine (UA) Negative (Negative); Ketones,Urine Negative (Negative); Leukocyte Esterase,Urine Small (Negative); Mucus,Urine Rare /hpf; Nitrite,Urine Negative (Negative); Protein,Urine Negative (Negative); RBC,Urine 4 /hpf (0-5); Specific Gravity,Urine 1.017 (1.001-1.035); Squamous Epithelial Cell,Urine <1 /hpf (0-4); Urobilinogen,Urine <2.0 mg/dL (<2.0); WBC,Urine 8 /hpf (0-5)
[2024-11-08] MEDS: METOCLOPRAMIDE 5 MG/ML 2 ML VIAL IVP STA (09:06)
[2024-11-08] MEDS: diphenhydrAMINE 50 MG/ML 1 ML VIAL IVP STA (09:07)
[2024-11-08] MEDS: ORPHENADRINE 30 MG/ML 2 ML VIAL IVP STA (09:10)
[2024-11-08] MEDS: ONDANSETRON 4 MG/2 ML VIAL IVP STA (09:35)
[2024-11-08] MEDS ORDERED: ONDANSETRON 4 MG/2 ML VIAL IVP PRN (10:01)
[2024-11-08] MEDS ORDERED: NALOXONE 0.4 MG/ML 1 ML VIAL IV PRN (10:01)
[2024-11-08] MEDS ORDERED: ACETAMINOPHEN TAB 325 MG TAB PO PRN (10:01)
[2024-11-08] MEDS: methylPREDNISolone SOD SUCCI 40 MG/ML 1 ML VIAL IV STA (10:44)
[2024-11-08] MEDS: BACLOFEN 10 MG TAB PO STA (10:44)
--- NOTE | 2024-11-08 13:25 | P.HPIM ---
History of Present Illness H&P Date: 11/08/24 History of present illness; patient is a 84-year-old lady with past medical history significant for L1 compression fracture status post kyphoplasty, hypertension who presents the ER because of excruciating back pain. Most of the history has been taken from patient's family at the bedside, according them patient has been having increasing pain for the last 4 to 5 days. There was no complaint of any bowel incontinence. There was no complaint of saddle anesthesia. There was no complaint recent fall. This morning patient woke up with worsening back pain, was unable to help her out of the bed. Because of his worsening back pain, patient came to the ER Initial lab work done in the ER showed WBC 7.04, hemoglobin 12.5, platelet count 148, sodium 130, potassium 4.3, BUN 16, creatinine 0.61, glucose 120 UA negative for infection CT lumbar spine done showed vertebroplasty of the L1 with severe compression fractures and retropulsion resulting in moderate spinal stenosis, mild degenera tive disease at L5-S1 CT abdomen and pelvis done showed no acute changes in the abdominal or pelvis Patient admitted to internal medicine service REVIEW OF SYSTEMS: CONSTITUTIONAL: No fever, no malaise, no fatigue. HEENT: No recent visual problems or hearing problems. Denied any sore throat. CARDIOVASCULAR: No chest pain, orthopnea, PND, no palpitations, no syncope. PULMONARY: No shortness of breath, no cough, no hemoptysis. GASTROINTESTINAL: No diarrhea, no nausea, no vomiting, no abdominal pain. NEUROLOGICAL: No headaches, no weakness, no numbness. HEMATOLOGICAL: Denies any bleeding or petechiae. GENITOURINARY: Denies any burning micturition, frequency, or urgency. MUSCULOSKELETAL/RHEUMATOLOGICAL: As mentioned above ENDOCRINE: Denies any polyuria or polydipsia. The rest of the 14-point review of systems is negative. PHYSICAL EXAMINATION: GENERAL: The patient is alert and oriented x3, in acute distress HEENT: Pupils are round and equally reacting to light. EOMI. No scleral icterus. No conjunctival pallor. Normocephalic, atraumatic. No pharyngeal erythema. No thyromegaly. CARDIOVASCULAR: S1 and S2 present. No murmurs, rubs, or gallops. PULMONARY: Chest is clear to auscultation, no wheezing or crackles. ABDOMEN: Soft, nontender, nondistended, normoactive bowel sounds. No palpable organomegaly. MUSCULOSKELETAL: No joint swelling or deformity. EXTREMITIES: No cyanosis, clubbing, or pedal edema. NEUROLOGICAL: Gross neurological examination did not reveal any focal deficits. SKIN: No rashes. Assessment and plan Acute on chronic back pain Hyponatremia Chronic systolic and diastolic heart failure Severe tricuspid regurgitation post TTVR at [facility] March 25, 2024 history of cardiomyopathy Sick sinus syndrome post pacemaker with upgrade to biventricular pacer in 2021 A-fib with RVR: Hypertension: Peptic ulcer disease and hiatal hernia Monitor vital signs Monitor CBC Monitor CMP Fall precaution Start Robaxin and Neurontin Continue pain management with as needed [place] Resume Toprol, Xarelto Resume losartan Consult orthopedics PT and OT consult Labs and medication were reviewed.. Continue same treatment. Continue with symptomatic treatment. Resume home medication. Monitor labs and vitals. DVT and GI prophylaxis. Further recommendations as per clinical course of the patient Dictation was produced using [employer] dictation software. please excuse any grammatical, word or spelling errors. Past Medical History Past Medical History: Atrial Fibrillation, Cancer, Heart Failure, Eye Disorder, GERD/Reflux, Hypertension, Rheumatoid Arthritis (RA) Additional Past Medical History / Comment(s): Skin cancer with removals, chronic back pain/herniated/hairline fractures/osteoporosis, glaucoma right eye., hadoop architect told her spine is collapsing and she has lost 30% of her bilateral lung capacity, scarring on lungs., sob with activity., past dysphagia, palpitat ions, hx ulcer, poor appetite History of Any Multi-Drug Resistant Organisms: None Reported Past Surgical History: Back Surgery, Cardiac Ablation, Cholecystectomy, Pacemaker Additional Past Surgical History / Comment(s): Cardiac ablations, cardioversion, medtronic pacemaker "dependent" per pt., kyphoplasty, colonoscopy, skin cancer removal, bilateral cataract surgery, EGD with esophageal stent. Valve replacment 03/24/24 HFM. Past Anesthesia/Blood Transfusion Reactions: No Reported Reaction Additional Past Anesthesia/Blood Transfusion Reaction / Comment(s): Pt has "slight claustrophobia". Pt has never received a blood transfusion. Type of Cardiac Device: Permanent Pacemaker Device Placement Date:: 08/2021 medtronic Past Psychological History: No Psychological Hx Reported Additional Psychological History / Comment(s): Pt resides with spouse. Occasionally uses a cane Smoking Status: Never smoker Past Alcohol Use History: None Reported Past Drug Use History: None Reported Additional Drug Use History / Comment(s): . - Past Family History Mother Family Medical History: CVA/TIA Additional Family Medical History / Comment(s): BLOOD CLOT IN THE BRAIN, AT AGE 61. Daughter(s) Family Medical History: Cancer Additional Family Medical History / Comment(s): MELANOMA & SQUAMOUS CELL CANCER Father Family Medical History: Respiratory Disorder Additional Family Medical History / Comment(s): Father of black lung. He work in the [employer]. Medications and Allergies Home Medications Medication Instructions Recorded Confirmed Type Rivaroxaban [Xarelto] 20 mg PO W/SUPPER 12/31/18 11/08/24 History Bimatoprost [Lumigan 0.01% Ophth 1 drop RIGHT EYE HS 07/27/21 11/08/24 History Soln] Metoprolol Succinate (ER) [Toprol 100 mg PO DAILY 09/29/21 11/08/24 History XL] Furosemide [Lasix] 40 mg PO BID 01/13/24 11/08/24 History Losartan [Cozaar] 50 mg PO BID 11/08/24 11/08/24 History Potassium Chloride 10 meq PO DAILY 11/08/24 11/08/24 History predniSONE See Taper PO BID 11/08/24 11/08/24 History traMADol HCL 50 mg PO BID 11/08/24 11/08/24 History Allergies Allergy/AdvReac Type Severity Reaction Status Date / Time etodolac [From [facility]] Allergy Rash/Hives Verified 11/08/24 10:47 Physical Exam Vitals: Vital Signs Temp Pulse Pulse Resp BP BP Pulse Ox 11/08/24 11:37 64 153/62 95 11/08/24 10:47 60 14 96 11/08/24 10:19 97.2 F L 11/08/24 10:00 131/61 11/08/24 09:00 144/77 11/08/24 06:58 97.9 F 69 22 147/72 98 Intake and Output 11/07/24 11/08/24 11/08/24 22:59 06:59 14:59 Other: Weight 75.75 kg 75.75 kg Results CBC & Chem 7: 11/08/24 07:28 11/08/24 07:28 Labs: Abnormal Lab Results - Last 24 Hours (Table) 11/08/24 11/08/24 11/08/24 Range/Units 07:28 07:28 07:34 MCH 26.8 L (27.0-32.0) pg MCHC 31.8 L (32.0-37.0) g/dL MPV 9.4 L (9.5-12.2) fL Sodium 130 L (137-145) mmol/L Carbon Dioxide 20 L (22-30) mmol/L Glucose 120 H (74-99) mg/dL Urine Blood Trace H (Negative) Ur Leukocyte Esterase Small H (Negative) Urine WBC 8 H (0-5) /hpf Urine Mucus Rare H (None) /hpf Thrombosis Risk Factor Assmnt - Choose All That Apply Any of the Below Risk Factors Present?: Yes Each Factor Represents 1 point: Obesity (BMI >25) Other Risk Factors: Yes Each Risk Factor Represents 3 Points: Age 75 years or older, Family history of DVT/PE Thrombosis Risk Factor Assessment Total Risk Factor Score: 7 Thrombosis Risk Factor Assessment Level: High Risk
[2024-11-08] MEDS: GABAPENTIN 100 MG CAP PO SCH (16:20)
[2024-11-08] MEDS: RIVAROXABAN 20 MG TAB PO SCH (17:41)
[2024-11-08] MEDS: traMADol 50 MG TAB PO PRN (17:41)
[2024-11-08] MEDS: LATANOPROST 0.005% OPHTH DROPS 2.5 ML BTL RIGHT EYE SCH (21:10)
[2024-11-08] MEDS: LOSARTAN 50 MG TAB PO SCH (21:10)
[2024-11-09] MEDS: HYDROcodone/APAP 5-325MG 1 EACH TAB PO PRN (00:05)
[2024-11-09] MEDS: methocarbamoL 500 MG TAB PO PRN (00:20)
[2024-11-09] MEDS: FUROSEMIDE 40 MG TAB PO SCH (08:42)
[2024-11-09] MEDS: POTASSIUM CHLORIDE ER 10 MEQ TAB.ER.PRT PO SCH (08:42)
[2024-11-09] MEDS: METOPROLOL SUCCINATE (ER) 100 MG TAB.ER.24H PO SCH (08:42)
[2024-11-09 09:08] LABS: Basophils # (A) 0.04 X 10*3/uL (0.00-0.10); Basophils % (A) 0.6 %; Eosinophils # (A) 0.14 X 10*3/uL (0.04-0.35); Eosinophils % (A) 2.1 %; HCT 37.7 % (37.2-46.3); HGB 11.3 g/dL (12.0-15.0); Lymphocytes # (A) 1.41 X 10*3/uL (0.90-5.00); Lymphocytes % (A) 21.4 %; MCH 26.2 pg (27.0-32.0); MCV 87.3 FL (80.0-97.0); Mean Platelet Volume 9.7 FL (9.5-12.2); Monocytes # (A) 0.69 X 10*3/uL (0.20-1.00); Monocytes % (A) 10.5 %; NRBC Per 100 WBC 0 X 10*3/uL (0.00-0.01); Neutrophils % (A) 65.2 %; Platelet Count 147 X 10*3/uL (140-440); RBC 4.32 X 10*6/uL (4.10-5.20); RDW 17.5 % (11.5-14.5); WBC 6.59 X 10*3/uL (4.50-10.00)
[2024-11-09 09:18] LABS: ALT 19 U/L (8-44); AST 21 U/L (13-35); Albumin 3.7 g/dL (3.8-4.9); Albumin/Globulin Ratio 1.68 Ratio (1.60-3.17); Alkaline Phosphatase 57 U/L (41-126); Blood Urea Nitrogen 11.7 mg/dL (9.0-27.0); Calcium 8.8 mg/dL (8.7-10.3); Carbon Dioxide 24.4 mmol/L (21.6-31.8); Chloride 100 mmol/L (96-109); Globulin 2.2 g/dL (1.6-3.3); Glucose 104 mg/dL (70-110); Potassium 4.3 mmol/L (3.5-5.5); Sodium 135 mmol/L (135-145); Total Bilirubin 0.6 mg/dL (0.3-1.2); Total Protein 5.9 g/dL (6.2-8.2)
--- NOTE | 2024-11-09 13:34 | P.CNOR ---
History of Present Illness - HPI Consult date: 11/09/24 Consult reason: low back pain (Patient is a very pleasant 84-year-old female who is known to our service. About 8 months ago she underwent treatment for an L1 compression fracture with kyphoplasty with our service. She was very happy with his result. She has been doing well through the winter until just a couple of days ago wh) History of present illness: Patient is a very pleasant 84-year-old female who is known to our service. About 8 months ago she underwent treatment for an L1 compression fracture with kyphoplasty with our service. She was very happy with his result. She has been doing well through the winter until just a couple of days ago when she started feeling significant pain in her lower back. She did not have any incident or trauma. She denies any fall. She says she was not lifting anything or did not move unusually. She says she got up and she had significant pain in her back which was significantly debilitating for her to try to move at all. She was not having a change in her lower extremities. She is not having changes in bowel bladder function. She denies any nausea or vomiting. She denies any weakness in her legs. She is having great difficulty with any sort of mobilization or ambulation and was brought to the hospital by her family. She denies any fevers chills or night sweats. Denies any chest pain or shortness of breath. Denies any headaches or changes in her vision Review of Systems As stated per HPI. Denies change in bowel or bladder function. Denies abdominal pain or chest pain or shortness of breath. The pain is primarily located at her mid and lower back. Denies any neck pain denies any visual changes Past Medical History Past Medical History: Atrial Fibrillation, Cancer, Heart Failure, Eye Disorder, GERD/Reflux, Hypertension, Rheumatoid Arthritis (RA) Additional Past Medical History / Comment(s): Skin cancer with removals, chronic back pain/herniated/hairline fractures/osteoporosis, glaucoma right eye., life care planner told her spine is collapsing and she has lost 30% of her bilateral lung capacity, scarring on lungs., sob with activity., past dysphagia, palpitations, hx ulcer, poor appetite. February 2024 she had kyphoplasty of L1 with good results History of Any Multi-Drug Resistant Organisms: None Reported Past Surgical History: Back Surgery, Cardiac Ablation, Cholecystectomy, Pa amari Additional Past Surgical History / Comment(s): Cardiac ablations, cardioversion, medtronic pacemaker "dependent" per pt., kyphoplasty, colonoscopy, skin cancer removal, bilateral cataract surgery, EGD with esophageal stent. Valve replacment 03/24/24 HFM. Past Anesthesia/Blood Transfusion Reactions: No Reported Reaction Additional Past Anesthesia/Blood Transfusion Reaction / Comm: Pt has "slight claustrophobia". Pt has never received a blood transfusion. Type of Cardiac Device: Permanent Pacemaker Device Placement Date:: 08/2021 medtronic Past Psychological History: No Psychological Hx Reported Additional Psychological History / Comment(s): Pt resides with spouse. Occasionally uses a cane Smoking Status: Never smoker Past Alcohol Use History: None Reported Past Drug Use History: None Reported Additional Drug Use History / Comment(s): . - Past Family History Mother Family Medical History: CVA/TIA Additional Family Medical History / Comment(s): BLOOD CLOT IN THE BRAIN, AT AGE 61. Daughter(s) Family Medical History: Cancer Additional Family Medical History / Comment(s): MELANOMA & SQUAMOUS CELL CANCER Father Family Medical History: Respiratory Disorder Additional Family Medical History / Comment(s): Father of black lung. He work in the [employer]. Medications and Allergies Home Medications Medication Instructions Recorded Confirmed Type Rivaroxaban [Xarelto] 20 mg PO W/SUPPER 12/31/18 11/08/24 History Bimatoprost [Lumigan 0.01% Ophth 1 drop RIGHT EYE HS 07/27/21 11/08/24 History Soln] Metoprolol Succinate (ER) [Toprol 100 mg PO DAILY 09/29/21 11/08/24 History XL] Furosemide [Lasix] 40 mg PO BID 01/13/24 11/08/24 History Losartan [Cozaar] 50 mg PO BID 11/08/24 11/08/24 History Potassium Chloride 10 meq PO DAILY 11/08/24 11/08/24 History predniSONE See Taper PO BID 11/08/24 11/08/24 History traMADol HCL 50 mg PO BID 11/08/24 11/08/24 History Allergies Allergy/AdvReac Type Severity Reaction Status Date / Time etodolac [From [facility]] Allergy Rash/Hives Verified 11/08/24 10:47 Physical Examination Osteopathic Statement: *. No significant issues noted on an osteopathic structural exam other than those noted in the History and Physical/Consult. - L Spine: dermatomal strength & reflexes bilateral Strength: hip flexion: 5/5 (At her back she is tender to palpation around the th oracolumbar junction. There is no open wounds lacerations abrasions or skin changes. Her scars are well-healed.) Strength: hip extension: 5/5 (She is able to lift her legs up off the bed independently with 5 out of 5 strength dorsiflexion plantarflexion EHL hip flexion knee extension. Thighs and calves soft nontender. No pain with internal ex rotation of her hips) Results - Labs Labs: Abnormal Lab Results - Last 24 Hours (Table) 11/09/24 11/09/24 Range/Units 02:41 02:41 Hgb 11.3 L (12.0-15.0) g/dL MCH 26.2 L (27.0-32.0) pg MCHC 30.0 L (32.0-37.0) g/dL RDW 17.5 H (11.5-14.5) % Total Protein 5.9 L (6.2-8.2) g/dL Albumin 3.7 L (3.8-4.9) g/dL H & H 11/08/24 11/09/24 Range/Units 07:28 02:41 Hgb 12.5 11.3 L (12.0-15.0) g/dL Hct 39.3 37.7 (37.2-46.3) % Result Diagrams: 11/09/24 02:41 11/09/24 02:41 - Diagnostic results CT Scan - lumbar: report reviewed, image reviewed (Lumbar CT is reviewed shows the prior Plasty at L1 which appears stable. Is difficult to determine if there is a hairline fracture of the superior endplate of L2. There is some compression forming at T12 as well.) Assessment and Plan Assessment: Acute low back pain Unspecified source of back pain with possible new fracture at T12 or L2 History of compression fracture at L1 status post kyphoplasty which appears stable Neurologically intact in lower extremities Plan: Acute low back pain Unspecified source of back pain with possible new fracture at T12 or L2 History of compression fracture at L1 status post kyphoplasty which appears stable Neurologically intact in lower extremities The patient has acute exacerbation of her low back pain with source. She may have a new fracture above or below her kyphoplasty and I would like to obtain x- rays of her thoracic spine and lumbar spine preferably in an upright position to determine the overall structure and compare these to preoperative imaging which are from our office. The CT scan does not comment on new fracture. She does not seem to have changes in her lower extremities or neurologic compromise. She may have some benefit with bracing and we will order her an LSO brace to be worn when she is out of bed. She does not need to use the brace while she is in bed or while bathing. We will put a prescription in the chart for the brace We will have therapy work with her to try to mobilize with the brace on She should continue with her pain control and it is okay for her to have her regular diet as we do not have any plans for surgery today I discussed this with her and her at bedside. They are agreeable. I answered their questions best my ability and language they can understand and will have further recommendations after she obtains her brace and has new x-rays of her back.
--- NOTE | 2024-11-09 14:47 | P.CNOR ---
History of Present Illness - [facility] Consult date: 11/09/24 Consult reason: low back pain History of present illness: This is an 84-year-old female admitted through the emergency department on 11/08/2024 with increasingly worsening low back pain. She has history of L1 compression fracture in February 2024. She had a kyphoplasty at that time. She states that her symptoms did improve after the procedure. However over the past couple of weeks she had worsening back pain. She has no radicular pain and has no complaint of numbness or tingling down the legs. She has had no recent bowel or bladder dysfunction or changes. She states the pain is in the central low back over her lumbar spine. She reports no recent injury or fall. She does not recall any preceding events leading to the increase of her pain. She is currently taking Ultram for pain and states that it is not helping her pain much. Past Medical History Past Medical History: Atrial Fibrillation, Cancer, Heart Failure, Eye Disorder, GERD/Reflux, Hypertension, Rheumatoid Arthritis (RA) Additional Past Medical History / Comment(s): Skin cancer with removals, chronic back pain/herniated/hairline fractures/osteoporosis, glaucoma right eye., senior safety management consultant told her spine is collapsing and she has lost 30% of her bilateral lung capacity, scarring on lungs., sob with activity., past dysphagia, palpitations, hx ulcer, poor appetite History of Any Multi-Drug Resistant Organisms: None Reported Past Surgical History: Back Surgery, Cardiac Ablation, Cholecystectomy, Pacemaker Additional Past Surgical History / Comment(s): Cardiac ablations, cardioversion, medtronic pacemaker "dependent" per pt., kyphoplasty, colonoscopy, skin cancer removal, bilateral cataract surgery, EGD with esophageal stent. Valve replacment 03/24/24 HFM. Past Anesthesia/Blood Transfusion Reactions: No Reported Reaction Additional Past Anesthesia/Blood Transfusion Reaction / Comm: Pt has "slight claustrophobia". Pt has never received a blood transfusion. Type of Cardiac Device: Permanent Pacemaker Device Placement Date:: 08/2021 medtronic Past Psychological History: No Psychological Hx Reported Additional Psychological History / Comment(s): Pt resides with spouse. Occasionally uses a cane Smoking Status: Never smoker Past Alcohol Use History: None Reported Past Drug Use History: None Reported Additional Drug Use History / Comment(s): . - Past Family History Mother Family Medical History: CVA/TIA Additional Family Medical History / Comment(s): BLOOD CLOT IN THE BRAIN, AT AGE 61. Daughter(s) Family Medical History: Cancer Additional Family Medical History / Comment(s): MELANOMA & SQUAMOUS CELL CANCER Father Family Medical History: Respiratory Disorder Additional Family Medical History / Comment(s): Father of black lung. He work in the [employer]. Medications and Allergies Home Medications Medication Instructions Recorded Confirmed Type Rivaroxaban [Xarelto] 20 mg PO W/SUPPER 12/31/18 11/08/24 History Bimatoprost [Lumigan 0.01% Ophth 1 drop RIGHT EYE HS 07/27/21 11/08/24 History Soln] Metoprolol Succinate (ER) [Toprol 100 mg PO DAILY 09/29/21 11/08/24 History XL] Furosemide [Lasix] 40 mg PO BID 01/13/24 11/08/24 History Losartan [Cozaar] 50 mg PO BID 11/08/24 11/08/24 History Potassium Chloride 10 meq PO DAILY 11/08/24 11/08/24 History predniSONE See Taper PO BID 11/08/24 11/08/24 History traMADol HCL 50 mg PO BID 11/08/24 11/08/24 History Allergies Allergy/AdvReac Type Severity Reaction Status Date / Time etodolac [From [facility]] Allergy Rash/Hives Verified 11/08/24 10:47 Physical Examination This is a pleasant 84-year-old female in no acute distress. She is alert and oriented x 3. Her daughter is present at bedside. Exam of the thoracic and lumbar spine reveal slight thoracic kyphosis. There is no other deformity noted. There is pain with palpation and percussion about the lumbar spine and thoracolumbar junction. There is minimal paraspinal musculature tenderness. She is able to actively sit up in bed with some pain. Exam of the lower extremities reveals no obvious deformity or shortening. She is able to lift each leg off the bed independently. No pain with logroll. Full foot and ankle motion bilaterally. Neurovascular status to the lower extremities is intact. Results CT scan of the lumbar spine reveals the kyphoplasty with significant compression of L1. There may possibly be new mild compression to L2 and questionably to T12. Clinical correlation is is suspicious for an L2 mild compression. Mild facet arthropathy noted. Diffuse osteopenia noted. - Labs Labs: Abnormal Lab Results - Last 24 Hours (Table) 11/09/24 11/09/24 Range/Units 02:41 02:41 Hgb 11.3 L (12.0-15.0) g/dL MCH 26.2 L (27.0-32.0) pg MCHC 30.0 L (32.0-37.0) g/dL RDW 17.5 H (11.5-14.5) % Total Protein 5.9 L (6.2-8.2) g/dL Albumin 3.7 L (3.8-4.9) g/dL H & H 11/08/24 11/09/24 Range/Units 07:28 02:41 Hgb 12.5 11.3 L (12.0-15.0) g/dL Hct 39.3 37.7 (37.2-46.3) % Result Diagrams: 11/09/24 02:41 11/09/24 02:41 Assessment and Plan (1) Back pain Current Visit: Yes Status: Acute Code(s): M54.9 - DORSALGIA, UNSPECIFIED SNOMED Code(s): 540704536 (2) Debility Current Visit: Yes Status: Acute Code(s): R53.81 - OTHER MALAISE SNOMED Code(s): 78007828 Plan: The clinical and radiographic findings are discussed with the patient and her daughter. We discussed the possibility of a new mild compression in the lumbar spine. She does have a soft lumbar corset. I recommend we try a more rigid lumbar corset for her back pain and stability. I will review the case with Dr. Yin today. I recommend PT and OT evaluation for discharge planning for home with home care versus rehab. We will continue to follow.
[2024-11-09 14:56] VITALS: BP 112/64; PULSE 64; RESP 19; TEMP 97.6
--- NOTE | 2024-11-09 15:19 | XR ---
EXAMINATION TYPE: XR lumbar spine 2 or 3V, XR thoracic spine 2V DATE OF EXAM: 11/09/2024 CLINICAL HISTORY: pain TECHNIQUE: Three views of the lumbar spine are submitted. Three views of the thoracic spine are submi tted. COMPARISON: CT abdomen and pelvis and lumbar spine 11/08/2024, CT chest 08/10/2024, lumbosacral spine r adiographs 12/23/2023 FINDINGS: There are 5 lumbar type vertebral bodies identified. Levoscoliotic curvature of the lumbar spine with apex at L2-L3. Increased thoracic kyphosis. Multilevel disc space narrowing with endplate sclerosis and osteophytosis. Vertebral augmentation changes of the L1 and T7 vertebral bodies from prior fractu re. Redemonstration of and a wedge compression deformity of the T8 vertebral body. Worsening L2 centr al compression deformity of the superior endplate with approximately 20% height loss and retropulsion . Cholecystectomy clips in right upper quadrant. Partial visualization of aortic valvular repair. Parti al visualization of left chest wall 3-lead cardiac pacemaking device with leads terminating in the ri ght atrium, right ventricle, and coronary sinus. Low lung volumes with cardiomegaly. Pulmonary vascul ar congestion. Atherosclerotic calcification of the aorta. IMPRESSION: 1. Vertebral augmentation changes of the T7 and L1 vertebral body from prior fractures. Worsening L2 superior endplate central compression deformity with approximately 20% height loss and no retropulsio n. 2. Moderate multilevel degenerative changes of the thoracolumbar spine. [facility], , 11/09/2024 3:17 PM
[2024-11-09 17:29] VITALS: BMI 26.9
--- NOTE | 2024-11-12 12:12 | P.DS ---
Providers Date of admission: 11/08/24 10:01 Expected date of discharge: 11/09/24 Attending physician: Samuel Alvarenga MD Consults: 11/08/24 09:47 Consult Physician Routine Consulting Provider: Gabby Yin Consult Reason/Comments: back pain, history of kyphoplasty Do you want consulting provider notified?: Yes Primary care physician: Madhu Milner [facility] Course: Final diagnosis Acute on chronic back pain Hyponatremia Chronic systolic and diastolic heart failure Severe tricuspid regurgitation post TTVR at [facility] March 25, 2024 history of cardiomyopathy Sick sinus syndrome post pacemaker with upgrade to biventricular pacer in 2021 A-fib with RVR: Hypertension: Peptic ulcer disease and hiatal hernia Discharge disposition Patient is being discharged in a stable condition with guarded prognosis to home with home care/rehab. Patient will follow-up with Dr. Milner in the outpatient setting upon discharge. Patient is to continue with LSO brace while out of bed and pain management with close outpatient follow-up with orthopedics as scheduled. Total time taken is greater than 35 minutes. Hospital course This is an 84-year-old woman with past medical history significant for L1 compression fracture status post kyphoplasty, hypertension who presents the ER because of excruciating back pain. Most of the history has been taken from patient's family at the bedside, according them patient has been having increasing pain for the last 4 to 5 days. There was no complaint of any bowel incontinence. There was no complaint of saddle anesthesia. There was no complaint recent fall. This morning patient woke up with worsening back pain, was unable to help her out of the bed. Because of his worsening back pain, patient came to the ER Initial lab work done in the ER showed WBC 7.04, hemoglobin 12.5, platelet count 148, sodium 130, potassium 4.3, BUN 16, creatinine 0.61, glucose [address] negative for infection CT lumbar spine done showed vertebroplasty of the L1 with severe compression fractures and retropulsion resulting in moderate spinal stenosis, mild degenerative disease at L5-S1 CT abdomen and pelvis done showed no acute changes in the abdominal or pelvis Patient admitted to internal medicine service Patient was evaluated by orthopedics ordering additional testing with no immediate plans of surgery at this point recommending an LSO brace which has been ordered and pending for fitting. Patient reports to feel improvement in pain and would like to try conservative measures with bracing and physical therapy first before any surgical interventions. Patient is keen on going home today as she helps take care of her patient does not want to go to rehab. Patient will be discharged home and recommended follow-up with primary care provider as well as orthopedics on discharge. Please refer to consultation notes for further HPI. Currently no reports of chest pain, shortness of breath, or palpitations. Patient is afebrile. No reports of nausea or vomiting and patient is tolerating diet. Patient will be discharged home today. Recommending home with home care/rehab at minimum. High risk for readmission given continued ongoing pain and other comorbidities. PHYSICAL EXAMINATION: GENERAL: The patient is alert and oriented x3, in no acute distress, well- developed, elderly appearing HEENT: Pupils are round and equally reacting to light. EOMI. No scleral icterus. No conjunctival pallor. Normocephalic, atraumatic. No pharyngeal erythema. No thyromegaly. CARDIOVASCULAR: S1 and S2 present. No murmurs, rubs, or gallops. PULMONARY: Chest is clear to auscultation, no wheezing or crackles. ABDOMEN: Soft, nontender, nondistended, normoactive bowel sounds. No palpable organomegaly. MUSCULOSKELETAL: No joint swelling or deformity. EXTREMITIES: No cyanosis, clubbing, or pedal edema. Upper and lower extremity weakness NEUROLOGICAL: Gross neurological examination did not reveal any focal deficits. Diffusely weak SKIN: No rashes. Please refer to medication reconciliation sheet for a list of medications. The impression and plan of care has been dictated by Macrina Agee, Nurse Practitioner as directed. Dr. Dario MD I have performed a history and examination and MDM of this patient, discussed the same with the dictator, and agree with the dictator's assessment and plan as written ,documented as a scribe. Based on total visit time, I have performed more than 50% of the visit. Patient Condition at Discharge: Fair Plan - Discharge Summary Discharge Rx Participant: No New Discharge Prescriptions: New HYDROcodone/APAP 5-325MG [[place] 5-325] 1 each PO Q6HR PRN #9 tab PRN Reason: Pain 7-10 Gabapentin [Neurontin] 100 mg PO TID #90 cap methocarbamoL [Robaxin] 500 mg PO QID PRN #40 tab PRN Reason: Muscle Spasm Acetaminophen Tab [Tylenol] 650 mg PO Q6HR PRN tab PRN Reason: Mild Pain Or Fever > 100.5 Continue Rivaroxaban [Xarelto] 20 mg PO W/SUPPER Metoprolol Succinate (ER) [Toprol XL] 100 mg PO DAILY Furosemide [Lasix] 40 mg PO BID predniSONE See Taper PO BID Potassium Chloride 10 meq PO DAILY Bimatoprost [Lumigan 0.01% Ophth Soln] 1 drop RIGHT EYE HS Losartan [Cozaar] 50 mg PO BID Changed traMADol HCL 50 mg PO TID PRN #0 each PRN Reason: Pain Discharge Medication List Rivaroxaban [Xarelto] 20 mg PO W/SUPPER 12/31/18 [History] Bimatoprost [Lumigan 0.01% Ophth Soln] 1 drop RIGHT EYE HS 07/27/21 [History] Metoprolol Succinate (ER) [Toprol XL] 100 mg PO DAILY 09/29/21 [History] Furosemide [Lasix] 40 mg PO BID 01/13/24 [History] Losartan [Cozaar] 50 mg PO BID 11/08/24 [History] Potassium Chloride 10 meq PO DAILY 11/08/24 [History] predniSONE See Taper PO BID 11/08/24 [History] Acetaminophen Tab [Tylenol] 650 mg PO Q6HR PRN tab 11/09/24 [Rx] Gabapentin [Neurontin] 100 mg PO TID #90 cap 11/09/24 [Rx] HYDROcodone/APAP 5-325MG [[place] 5-325] 1 each PO Q6HR PRN #9 tab 11/09/24 [Rx] methocarbamoL [Robaxin] 500 mg PO QID PRN #40 tab 11/09/24 [Rx] traMADol HCL 50 mg PO TID PRN #0 each 11/09/24 [Rx] Follow up Appointment(s)/Referral(s): Residential Home,Health [NON-STAFF] - 1 Week Madhu Milner MD [Primary Care Provider] - 1 Week Gabby Yin DO [Doctor of Osteopathic Medicine] - 1 Week Activity/Diet/Wound Care/Special Instructions: Okay to discharge if patient receives brace Activity limited until follow-up Follow-up with primary care provider on discharge Follow-up with orthopedics outpatient Discharge/Stand Alone Forms: Who Do I Call?, Community Resources, Help In The Home Discharge Disposition: HOME WITH HOME HEALTH SERVICES
== END 2024-11-09 17:42 | disposition home health service (06) ==
LOC: EC 06:56 → SUPCPDRO 06:56 → 4SSUR 10:01 → INTOOBSV 10:01 → 4SSUR 10:47
PROVIDERS: ADMIT Internal Medicine; ATTEND Internal Medicine
DX: M54.50 Low back pain, unspecified (principal); G89.29 Other chronic pain; E87.1 Hypo-osmolality and hyponatremia; R53.81 Other malaise; I11.0 Hypertensive heart disease with heart failure; I50.42 Chronic combined systolic (congestive) and diastolic (congestive) heart failure; I48.91 Unspecified atrial fibrillation; I49.5 Sick sinus syndrome; I42.9 Cardiomyopathy, unspecified; M81.0 Age-related osteoporosis without current pathological fracture; M06.9 Rheumatoid arthritis, unspecified; H40.9 Unspecified glaucoma; K21.9 Gastro-esophageal reflux disease without esophagitis; Z95.0 Presence of cardiac pacemaker; Z85.828 Personal history of other malignant neoplasm of skin; Z79.899 Other long term (current) drug therapy; Z79.01 Long term (current) use of anticoagulants; Z95.2 Presence of prosthetic heart valve; Z88.8 Allergy status to other drugs, medicaments and biological substances
CPT/HCPCS: 96374; 96375; 99285; 36415; 97161; 97166; 80053 ×2; 85025 ×2; 81001; 72070; 72100; 72131; 74176; G0378 ×2; J2270; J1200; J2360; J2765

== ENCOUNTER → 2024-12-31 | Outpatient (CLI) | payer MEDICARE ==
--- NOTE | 2024-12-31 11:58 | CT ---
EXAMINATION TYPE: CT chest wo con DATE OF EXAM: 12/31/2024 11:37 AM COMPARISON: 08/10/2024. CLINICAL INDICATION: Female, 84 years old with history of J84.10 PULMONARY FIBROSIS; PHH, PULMONARY F IBROSIS. high resolution TECHNIQUE: Multiple axial images were obtained through the chest. Sagittal and coronal reformats were created for review. MIP was performed on a separate workstation. Contrast used: mL of (None if empty) Oral contrast used: (None if empty) CT DLP: 1406.80 mGycm, Automated exposure control for dose reduction was used. FINDINGS: LUNGS/ PLEURA: Scattered interstitial prominence of the lungs. No focal consolidation, pneumothorax o r pleural effusion. AIRWAY: Patent and unremarkable. Tortuous trachea as it enters the mediastinum. HEART: Cardiomegaly is demonstrated. Valvular repair changes moderate coronary artery atherosclerosis . Cardiac conduction leads terminating in right ventricle and right atrium. Mild coronary artery calc ifications present. MEDIASTINUM: No gross evidence of adenopathy. VASCULATURE: No aortic aneurysm. MUSCULOSKELETAL: No acute osseous abnormalities SOFT TISSUES/LYMPH NODES: Unremarkable. LOWER NECK: No significant findings. UPPER ABDOMEN: No significant findings. IMPRESSION: 1. No evidence for honeycombing to suggest fibrosis. Scattered interstitial prominence correlate for scar prior atypical pneumonia versus NSIP. 2. No acute process. 3. Cardiomegaly. 4. Aortic valve repair changes. 5. Mild coronary artery atherosclerosis. [facility], , 12/31/2024 11:55 AM
== END | disposition home or self-care (01) ==
LOC: RADCTMAIN 11:12
PROVIDERS: ATTEND Internal Medicine Critical Care Medicine
DX: J84.10 Pulmonary fibrosis, unspecified (principal); I51.7 Cardiomegaly; I25.10 Atherosclerotic heart disease of native coronary artery without angina pectoris
CPT/HCPCS: 71250

== ENCOUNTER 2025-01-21 09:28 | Day surgery (SDC) | payer MEDICARE ==
[2025-01-20 09:21] VITALS: BMI 26.5
[~2025-01-21 09:28] MED LIST changes: -IOPAMIDOL M200 10 ML VIAL ONE; -LACTATED RINGERS 1,000 ML BAG ONE; +LACTATED RINGERS 1,000 ML IV SCH; +LIDOCAINE 1% (10MG/ML) FOR IV START INTRADERMA PRN; -LIDOCAINE 1%-EPI 1:100,000 20 ML VIAL ONE; -ONDANSETRON 4 MG/2 ML VIAL ONE
[2025-01-21] MEDS: IV FLUID CONTINUATION 1,000 ML IV ONE (09:52)
[2025-01-21] MEDS: LACTATED RINGERS 1,000 ML IV SCH (09:55)
[2025-01-21 10:02] VITALS: TEMP 97.5
[2025-01-21] MEDS ORDERED: PROPOFOL 10 MG/ML 20 ML VIAL IV ONE (10:12)
[2025-01-21] MEDS ORDERED: LIDOCAINE 2% (PF) 20 MG/ML 5 ML VIAL ONE (10:12)
[2025-01-21] MEDS: LIDOCAINE 2% INJ 20 MG/ML INTRATRACH ONE (10:23)
--- NOTE | 2025-01-21 10:29 | P.PCN ---
Date of Procedure: 01/21/25 Preoperative Diagnosis: Interstitial lung disease Postoperative Diagnosis: Interstitial lung disease Procedure(s) Performed: Bronchoscopy, bronchoalveolar lavage of the lingula Anesthesia: KRISSY Surgeon: Jailyn Persaud Pathology: other Condition: stable Disposition: same day Operative Findings: Indication: Interstitial lung disease with diffuse groundglass pulmonary infiltrates. Rule out infections. Procedure was done in the endoscopy suite. A consent was signed. Timeout was also performed. The patient has chronic hypoxic respiratory failure and the patient is on oxygen between 2 and 4 L/min nasal cannula The flexible bronchoscope was done under conscious sedation. Anesthetic agents was given by NEEDLE LOOM SETTER. After achieving adequate sedation, the flexible bronchoscope was easily passed through the right nostril and was advanced into the posterior oropharynx. Examination of the upper airway structures included the posterior oropharynx, larynx, epiglottis, vallecula and the vocal cords. All of those structures were within normal limits. A total of 2 cc of 1% lidocaine was applied to the vocal cord and following that the bronchoscope was passed to the upper trachea. Examination of tracheobronchial tree was done. There was some looseness per secretions encountered. Nevertheless, the airways was patent. There was a mild component of tracheobronchomalacia. The trachea, bilateral mainstem bronchi, right upper lobe bronchus, bronchus intermedius, right middle lobe and right lower lobe bronchi in the various 10 segments in the right middle segment. Examination of the left side included the left upper lobe bronchus, left lower lobe bronchus and the various 8 segments on the left. No endobronchial tumors or lesions identified. Bronchial mucosa was slightly inflamed. Bronchioloalveolar lavage of the lingula was done. A total of 60 cc of saline was infused and 35 cc was aspirated without any major difficulties. The aspirate was cloudy, nonbloody. Therapeutic airway suctioning was done and the procedure was completed. Bronchoscope was removed and the patient was transferred to recovery in stable condition. Awaiting the results of the BAL. If no active microbial infections, will place the patient on immunosuppression for her chronic ILD.
[2025-01-21 10:47] VITALS: BP 107/45; PULSE 60; RESP 19
[2025-01-21 23:10] LABS: Appearance,BF Blood Tinged (Clear)
[2025-01-25 09:12] LABS: Nucleated Cells, Body Fluid 270 /UL
== END 2025-01-21 11:05 | disposition home or self-care (01) ==
LOC: ORWHC2ENDO 09:28
PROVIDERS: ATTEND Internal Medicine Critical Care Medicine
DX: J84.10 Pulmonary fibrosis, unspecified (principal); J96.11 Chronic respiratory failure with hypoxia; C44.90 Unspecified malignant neoplasm of skin, unspecified; I36.1 Nonrheumatic tricuspid (valve) insufficiency; I48.20 Chronic atrial fibrillation, unspecified; I48.91 Unspecified atrial fibrillation; I50.9 Heart failure, unspecified; I11.0 Hypertensive heart disease with heart failure; M06.9 Rheumatoid arthritis, unspecified; M81.0 Age-related osteoporosis without current pathological fracture; S22.000A Wedge compression fracture of unspecified thoracic vertebra, initial encounter for closed fracture; Z95.0 Presence of cardiac pacemaker; Z88.6 Allergy status to analgesic agent; Z79.899 Other long term (current) drug therapy; X58.XXXA Exposure to other specified factors, initial encounter
CPT/HCPCS: 88108; 88305; 89050; 87070; 87205; 87116; 87102; 87206; 31624; J2704; J2003 ×2